=== PATIENT | male | born 1940 | race Caucasian/White ===

== ENCOUNTER → 2017-01-19 | Outpatient (CLI) | payer MEDICARE ==
[2017-01-19 11:44] LABS: Blood Urea Nitrogen 17 mg/dL (9-20); Non-African American GFR(MDRD) >60 (>60 ml/min/1.73 sqM)
--- NOTE | 2017-01-21 10:57 | CT ---
EXAMINATION TYPE: CT abdomen pelvis w con DATE OF EXAM: 01/19/2017 COMPARISON: 05/11/2016 HISTORY: Patient has no complaints at time of service. Follow up study for known pancreatic CA. CT DLP: 912 mGycm CONTRAST: CT scan of the abdomen and pelvis is performed without Oral Contrast and with IV Contrast, patient in jected with 100 mL of Omnipaque 300. FINDINGS: LUNG BASES-: No visible nodule. No infiltrate. LIVER/GB: Calcified gallstone near the gallbladder neck. Multiple hepatic cysts the largest within the right hepatic lobe posterior segment measures approximately 7 cm in greatest dimension. No solid hepatic lesions identified. Biliary tree is of normal caliber. 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 Hyperdense material at the surgical site may reflect surgical clips. No definite evidence for residual or recurrent mass . SPLEEN: Splenectomy changes noted. ADRENALS: No nodule. No thickening. KIDNEYS/BLADDER: No hydronephrosis. No nephrolithiasis. No disctinct renal mass. Urinary bladder g rossly unremarkable. BOWEL: Normal appendix. Normal bowel caliber. No inflammation. Moderate sigmoid diverticulosis with out diverticulitis. GENITAL ORGANS: Prostate gland enlargement. LYMPH NODES: No greater than 1cm abdominal or pelvic lymph nodes are appreciated. AORTA: No significant abnormality. OSSEOUS STRUCTURES: Degenerative changes lumbar spine and right hip prosthesis. OTHER: No significant additional abnormality is seen. IMPRESSION: 1. 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 No definite evidence for tumor re currence. 2. Innumerable hepatic cysts. 3. Cholelithiasis.
== END | disposition home or self-care (01) ==
LOC: RADPROMAIN 10:54
PROVIDERS: ATTEND Internal Medicine Hematology & Oncology
DX: C25.2 Malignant neoplasm of tail of pancreas (principal); K76.89 Other specified diseases of liver; K80.20 Calculus of gallbladder without cholecystitis without obstruction; Z90.81 Acquired absence of spleen; Z90.411 Acquired partial absence of pancreas; Z88.8 Allergy status to other drugs, medicaments and biological substances
CPT/HCPCS: 82565; 84520; 74177; Q9967; J1642

== ENCOUNTER → 2017-02-28 | Outpatient (CLI) | payer MEDICARE ==
--- NOTE | 2017-02-28 20:45 | US ---
EXAMINATION TYPE: US thyroid st tissue head/neck DATE OF EXAM: 02/28/2017 COMPARISON: Prior thyroid ultrasound April 15, 2016. CLINICAL HISTORY: E04.1 non-toxic thyroid nodule. follow up exam GLAND SIZE: Right Lobe: 3.8 x 1.1 x 2.4 cm Overall Parenchyma: heterogenous Left Lobe: 4.3 x 1.2 x 2.5 cm Overall Parenchyma: heterogeneous Isthmus Thickness: 0.5 cm NODULES RIGHT: # of nodules measured on right: 1 1. 0.4 X 0.3 x 0.4 cm cystic nodule at the lower pole with well-defined margins. This nodule is t aller than wide and shows no intranodular vascularity. Prior size: 0.3 x 0.4 x 0.3 cm LEFT: # of nodules measured on left: 1 1. 0.7 X 0.8 x 0.7 cm cystic nodule at the mid pole with margins. This nodule is wider than tall and shows no intranodular vascularity. Prior size: 0.8 x 0.6 x 0.6 cm ISTHMUS: # of nodules measured in the isthmus: 0 Bilateral neck scanned, no evidence of lymphadenopathy. Thyroid gland remains normal in size and slightly heterogeneous appearance with small subcentimeter n odules redemonstrated bilaterally. Only a few larger nodules are marked by technologist on current st udy. IMPRESSION: Overall stable findings, multiple small nodules scattered throughout normal-sized thyroid redemonstra fernanda. No new greater than 1 cm solid or cystic nodules are seen.
== END | disposition home or self-care (01) ==
LOC: RADUSWWP 13:33
PROVIDERS: ATTEND Family Medicine
DX: E04.2 Nontoxic multinodular goiter (principal)
CPT/HCPCS: 76536

== ENCOUNTER → 2018-01-09 | Outpatient (CLI) | payer MEDICARE ==
[2018-01-09 10:51] LABS: Anion Gap 6 mmol/L; Blood Urea Nitrogen 20 mg/dL (9-20); Calcium 9.2 mg/dL (8.4-10.2); Carbon Dioxide 29 mmol/L (22-30); Chloride 105 mmol/L (98-107); Glucose 129 mg/dL (74-99); Potassium 4.2 mmol/L (3.5-5.1); Sodium 140 mmol/L (137-145)
[2018-01-09 11:20] LABS: Prostate Specific Antigen 0.44 ng/mL (0.00-4.00)
== END | disposition home or self-care (01) ==
LOC: LABWHC1 10:10
PROVIDERS: ATTEND Urology
DX: N40.0 Benign prostatic hyperplasia without lower urinary tract symptoms (principal); N20.0 Calculus of kidney
CPT/HCPCS: 36415; 80048; 84153

== ENCOUNTER → 2018-01-20 | Outpatient (CLI) | payer MEDICARE ==
--- NOTE | 2018-01-20 10:16 | CT ---
EXAMINATION TYPE: CT abdomen pelvis w con DATE OF EXAM: 01/20/2018 COMPARISON: CT abdomen pelvis January 19, 2017 and older outside study May 11, 2016. Outside PET/ CT May 19, 2016 CT HISTORY: Pancreatic cancer CT DLP: 957 mGycm, Automated Exposure Control for Dose Reduction was Utilized. CONTRAST: CT scan of the abdomen and pelvis is performed with oral water and with IV Contrast, patient injected with 100 mL of Isovue 370. Pancreas protocol. FINDINGS: LUNG BASES: Central mild left basilar linear scarring is redemonstrated. There is bibasilar dependent atelectasis currently. There is stable calcified 2 mm left basilar nodule or granuloma axial image 9 . LIVER/GB: Numerous simple appearing thin-walled cyst redemonstrated scattered throughout the liver. D ependent rim calcified gallstone is redemonstrated in gallbladder. PANCREAS: There is redemonstration of surgical changes from distal pancreatectomy with surgical clips at mid body level axial image 33 redemonstrated. There is redemonstration of fluid-filled small beba l loops occupying distal pancreatic bed. SPLEEN: Splenic resection is redemonstrated ADRENALS: Slight asymmetric thickening to left adrenal gland is stable presumed benign. KIDNEYS: No significant abnormality is seen. BOWEL: Prominent diverticulosis in the sigmoid colon is redemonstrated. Additional scattered colonic diverticula are seen. No suspicious small or large bowel dilatation is present. PROSTATE/SEMINAL VESICLES: Prostate gland is mildly enlarged bulging on bladder base, underlying BPH is felt present. Transitional zone calcifications are redemonstrated. Some adjacent right-sided pelvi c phleboliths are again seen. Bladder wall is mildly thickened presumed related to outlet obstruction from enlarged prostate gland. LYMPH NODES: No new greater than 1cm abdominal or pelvic lymph nodes are appreciated. Some scattered prominent but subcentimeter lymph nodes throughout the upper abdomen are redemonstrated. Largest padmini r stomach axial image 35 measures 8 x 6 mm without significant change from prior. OSSEOUS STRUCTURES: Metallic hardware from total right hip arthroplasty causes streak artifact limiti ng evaluation of pelvic structures. There is persistent but stable slight superior positioning relati ve to [place] acetabulum. Spine is straightened on sagittal images. There is moderate multilevel anter ior and lateral spurring. There is advanced disc space narrowing with endplate sclerosis L5-S1 level. OTHER: There is moderate to severe atherosclerotic change of ectatic abdominal aorta measuring up to 2.7 cm transversely axial image 54 series 8 redemonstrated. IMPRESSION: Postsurgical changes redemonstrated. No new mass or adenopathy is seen to suggest neoplas tic recurrence.
== END | disposition home or self-care (01) ==
LOC: RADCTMAIN 07:55
PROVIDERS: ATTEND Internal Medicine Hematology & Oncology
DX: C25.2 Malignant neoplasm of tail of pancreas (principal); Z91.048 Other nonmedicinal substance allergy status; Z88.8 Allergy status to other drugs, medicaments and biological substances; Z98.890 Other specified postprocedural states
CPT/HCPCS: 82565; 84520; 74177; 36415; Q9967

== ENCOUNTER → 2018-08-04 | Outpatient (CLI) | payer MEDICARE ==
[2018-08-04 08:18] LABS: Blood Urea Nitrogen 18 mg/dL (9-20)
--- NOTE | 2018-08-04 10:28 | CT ---
EXAMINATION TYPE: CT abdomen pelvis w con DATE OF EXAM: 08/04/2018 COMPARISON: 01/20/2018 HISTORY: Pancreatic CA follow-up exam. History of 4 hernia repairs, right hip replacement and cardiac stents. CT DLP: 553.0 mGycm Automated exposure control for dose reduction was used. TECHNIQUE: Helical acquisition of images was performed from the lung bases through the pelvis. CONTRAST: Performed with Oral Contrast and with IV Contrast, patient injected with 100 mL of Isovue 300. FINDINGS: LUNG BASES: Left basilar scarring and minimal bibasilar atelectasis are redemonstrated. LIVER/GB: There is redemonstration of multiple unchanged thin-walled hepatic cysts with the largest m easuring 7.3 cm. No new suspicious hepatic lesions are present. No intrahepatic biliary ductal dilata tion. Calcified gallstone again appears within the gallbladder neck dependently. No pericholecystic f luid or right upper quadrant fat stranding changes are seen. No common bile duct dilatation. PANCREAS: There is surgical resection of the distal pancreatic body and tail. No pancreatic ductal en largement and the remainder the pancreatic body, pancreatic neck or pancreatic head. Remainder the vi sualized pancreatic parenchyma is homogeneous in enhancement. SPLEEN: Spleen is surgically absent. Cluster loops of nondilated small bowel are prolapsed within the splenic bed. ADRENALS: No significant abnormality is seen. KIDNEYS: Kidneys enhance and excrete symmetrically. No hydronephrosis is seen. REPRODUCTIVE ORGANS: Heterogenous and slightly enlarged. URINARY BLADDER: No significant abnormality is seen. ADENOPATHY: There is a peripancreatic lymph node seen on series 3 image 20 measuring 8 mm in short a xis, unchanged from the prior. There is a 1 cm short axis right paratracheal lymph node seen on serie s 3 image 42 and series 839, retrospectively unchanged from the prior. Additional portacaval lymph no jake are within normal limits. No new suspicious peripancreatic adenopathy. OSSEOUS STRUCTURES: There is straightening of usual lumbar lordosis and multilevel degenerative disc disease with intervertebral disc space narrowing at and L5-S1. Right femoral arthroplasty is noted w ith surrounding heterotopic ossification. Multilevel right-sided hemilaminectomy defects are noted of the lower lumbar spine. BOWEL: Numerous colonic diverticula are present in addition to moderate burden fecal stasis througho ut the colon, limiting evaluation of the bowel. No dilated large or small bowel is seen. OTHER: Moderate atheromatous changes are noted of the abdominal aorta and its branches. There is infr arenal abdominal aortic ectasia measuring up to 2.7 x 2.9 cm in anterior posterior by transverse dime nsion measured on series 3 image 35, stable from the prior. IMPRESSION: STATUS POST PARTIAL RESECTION OF THE PANCREAS WITH STABLE PERIPANCREATIC PROMINENT LYMPH NODES AND UN CHANGED NUMEROUS HEPATIC CYSTS. NO NEW EVIDENCE OF METASTASIS WITHIN THE ABDOMEN OR PELVIS.
== END | disposition home or self-care (01) ==
LOC: RADCTMAIN 07:11
PROVIDERS: ATTEND Internal Medicine Hematology & Oncology
DX: K76.89 Other specified diseases of liver (principal); C25.2 Malignant neoplasm of tail of pancreas; Z88.8 Allergy status to other drugs, medicaments and biological substances
CPT/HCPCS: 82565; 84520; 74177; 36415; Q9967

== ENCOUNTER → 2019-01-08 | Outpatient (CLI) | payer MEDICARE ==
[2019-01-08 16:10] LABS: African American GFR (CKD) 84.4 (60.0-200.0); Anion Gap 8.7 mmol/L (4.00-12.00); Calcium 9.3 mg/dL (8.7-10.3); Carbon Dioxide 29.3 mmol/L (21.6-31.8); Non-African American GFR(CKD) 72.8 (60.0-200.0); Potassium 4.6 mmol/L (3.5-5.5)
== END | disposition home or self-care (01) ==
LOC: LABWHC1 09:07
PROVIDERS: ATTEND Urology
DX: N40.0 Benign prostatic hyperplasia without lower urinary tract symptoms (principal); N20.0 Calculus of kidney
CPT/HCPCS: 36415; 80048; 84153

== ENCOUNTER → 2019-02-16 | Outpatient (CLI) | payer MEDICARE ==
--- NOTE | 2019-02-17 11:20 | CT ---
EXAMINATION TYPE: CT ChestAbdPelvis w con DATE OF EXAM: 02/16/2019 COMPARISON: August 04, [address] chest dated 03/10/2016 HISTORY: neoplasm of tail of pancreas CT DLP: 628.1 mGycm CONTRAST: CT scan of the chest, abdomen and pelvis is performed with Oral Contrast and with IV Contrast, patien t injected with 100 mL of Isovue 300. [address] Chest: LUNGS: The lungs are clear and free of infiltrate or atelectasis. Ossified granuloma right upper lobe . 0.9 mm versus 8.7 mm pulmonary nodule right lower lobe image 34. Stable 4 mm pulmonary nodule left lower lobe image 3.7 meter versus 3.5 mm previously. No pleural effusion or CT evidence of interstiti al lung disease. MEDIASTINUM: Thoracic aorta is of normal caliber. The heart is not enlarged. No evidence for media stinal mass or adenopathy. HILAR STRUCTURES: No evidence for mass. No hilar adenopathy is appreciated. OTHER: No significant abnormality. CONTRAST CT ABDOMEN AND PELVIS FINDINGS: LIVER/GB: There is evidence of cholelithiasis. There is redemonstration of multiple unchanged thin-wa lled hepatic cysts with the largest measuring 7.3 cm. No new suspicious hepatic lesions are present. Biliary tree is of normal caliber. PANCREAS: There is surgical resection of the distal pancreatic body and tail. No pancreatic ductal e nlargement and the remainder the pancreatic body, pancreatic neck or pancreatic head. Remainder the v isualized pancreatic parenchyma is homogeneous in enhancement. SPLEEN: No splenic enlargement. No lesion seen. ADRENALS: No nodule. No thickening. KIDNEYS/BLADDER: No hydronephrosis. No nephrolithiasis. No disctinct renal mass. BOWEL: Normal appendix. Normal bowel caliber. No inflammation. GENITAL ORGANS: No gross abnormality. LYMPH NODES: No greater than 1cm abdominal or pelvic lymph nodes are appreciated. AORTA: No significant abnormality. OSSEOUS STRUCTURES: No significant abnormality is seen. OTHER: No significant additional abnormality is seen. IMPRESSION: 1. resection of the distal pancreatic body and tail without evidence for recurrent or residual mass. 2. Thin-walled hepatic cysts. 3. Stable pulmonary nodules. 4. Cholelithiasis.
== END | disposition home or self-care (01) ==
LOC: RADCTMAIN 10:23
PROVIDERS: ATTEND Internal Medicine Hematology & Oncology
DX: Z08 Encounter for follow-up examination after completed treatment for malignant neoplasm (principal); R91.8 Other nonspecific abnormal finding of lung field; K76.89 Other specified diseases of liver; K80.20 Calculus of gallbladder without cholecystitis without obstruction; Z88.8 Allergy status to other drugs, medicaments and biological substances
CPT/HCPCS: 82565; 84520; 71260; 74177; 36415; Q9967 ×2

== ENCOUNTER 2019-04-03 11:39 | Inpatient (IN) | payer MEDICARE ==
[2019-04-03] MEDS ORDERED: SODIUM CHLORIDE 0.9% 1,000 ML IV STA (12:08)
--- NOTE | 2019-04-03 12:17 | ED ---
Abdominal Pain HPI - General Chief Complaint: Abdominal Pain Stated Complaint: Nausea, vomiting Time Seen by Provider: 04/03/19 11:55 Source: patient, family, EMS, RN notes reviewed Mode of arrival: EMS Limitations: no limitations - History of Present Illness Initial Comments: This a 79-year-old male presents emergency Department chief complaint of abdo luis pain. Patient states that started approximately an hour or so after eating peanut butter with a bagel Patient states he had epigastric right quadrant severe pain. Patient states that it radiates to his back. Patient states he had several episodes of vomiting but states that his nausea is im proved after Zofran given by EMS patient states his pain is resolved. Patient denies any current chest pain or shortness of breath. He states when he was vomiting did have some symptoms. Patient does admit that he's had prior ankle headache surgery secondary pain carry cancer at [place]. Patient denies any current dysuria, hematuria, diarrhea constipation - Related Data Allergies Allergy/AdvReac Type Severity Reaction Status Date / Time No Known Allergies Allergy Verified 04/03/19 11:48 Review of Systems ROS Statement: Those systems with pertinent positive or pertinent negative responses have been documented in the HPI. ROS Other: All systems not noted in ROS Statement are negative. Past Medical History Past Medical History: Atrial Fibrillation, Cancer, Chest Pain / Angina, Hyperlipidemia, Hypertension Additional Past Medical History / Comment(s): pancreatic, History of Any Multi-Drug Resistant Organisms: None Reported Past Surgical History: Back Surgery, Hernia Repair, Orthopedic Surgery Additional Past Surgical History / Comment(s): pancrearic resection, right hip Past Psychological History: No Psychological Hx Reported Smoking Status: Never smoker Past Alcohol Use History: Occasional Past Drug Use History: None Reported General Exam Limitations: no limitations General appearance: alert, in no apparent distress Head exam: Present: atraumatic, normocephalic, normal inspection Eye exam: Present: normal appearance, PERRL, EOMI. Absent: scleral icterus, conjunctival injection, periorbital swelling ENT exam: Present: normal exam, normal oropharynx, mucous membranes moist Neck exam: Present: normal inspection, full ROM. Absent: tenderness, meningi smus, lymphadenopathy Respiratory exam: Present: normal lung sounds bilaterally. Absent: respiratory distress, wheezes, rales, rhonchi, stridor Cardiovascular Exam: Present: regular rate, normal rhythm, normal heart sounds. Absent: systolic murmur, diastolic murmur, rubs, gallop, clicks GI/Abdominal exam: Present: soft, tenderness (Mild right upper quadrant, epigastric), normal bowel sounds. Absent: distended, guarding, rebound, rigid Back exam: Absent: CVA tenderness (R), CVA tenderness (L) Neurological exam: Present: alert, oriented X3 Skin exam: Present: warm, dry, intact, normal color. Absent: rash Course Vital Signs 04/03/19 11:42 Temperature 97.2 F L Pulse Rate 69 Respiratory 16 Rate Blood Pressure 142/125 O2 Sat by Pulse 98 Oximetry Medical Decision Making - Medical Decision Making Patient also shows dilated common bile duct concerning for developing acute cholecystitis, cholelithiasis. Patient's labs are unremarkable case discussed with Dr. Quezada on-call for Dr. Orta patient be admitted patient will be kept nothing by mouth and we placed on pain medications - Lab Data Result diagrams: 04/03/19 12:39 04/03/19 12:39 Lab Results 04/03/19 04/03/19 04/03/19 Range/Units 12:39 12:39 12:39 WBC 13.9 H (3.8-10.6) k/uL RBC 3.94 L (4.30-5.90) m/uL Hgb 14.0 (13.0-17.5) gm/dL Hct 41.0 (39.0-53.0) % MCV 104.1 H (80.0-100.0) fL MCH 35.6 H (25.0-35.0) pg MCHC 34.2 (31.0-37.0) g/dL RDW 12.1 (11.5-15.5) % Plt Count 198 (150-450) k/uL Neutrophils % 82 % Lymphocytes % 8 % Monocytes % 7 % Eosinophils % 1 % Basophils % 0 % Neutrophils # 11.5 H (1.3-7.7) k/uL Lymphocytes # 1.2 (1.0-4.8) k/uL Monocytes # 1.0 (0-1.0) k/uL Eosinophils # 0.1 (0-0.7) k/uL Basophils # 0.0 (0-0.2) k/uL Macrocytosis Slight Sodium 138 (137-145) mmol/L Potassium 4.5 (3.5-5.1) mmol/L Chloride 104 (98-107) mmol/L Carbon Dioxide 22 (22-30) mmol/L Anion Gap 12 mmol/L BUN 18 (9-20) mg/dL Creatinine 0.83 (0.66-1.25) mg/dL Est GFR (CKD-EPI)AfAm >90 (>60 ml/min/1.73 sqM) Est GFR (CKD-EPI)NonAf 85 (>60 ml/min/1.73 sqM) Glucose 126 H (74-99) mg/dL Plasma Lactic Acid Donnell 1.9 (0.7-2.0) mmol/L Calcium 9.9 (8.4-10.2) mg/dL Total Bilirubin 1.3 (0.2-1.3) mg/dL AST 30 (17-59) U/L ALT 23 (21-72) U/L Alkaline Phosphatase 73 (38-126) U/L Troponin I (0.000-0.034) ng/mL Total Protein 8.0 (6.3-8.2) g/dL Albumin 4.6 (3.5-5.0) g/dL Amylase 71 (30-110) U/L Lipase 141 (23-300) U/L Urine Color Urine Appearance (Clear) Urine pH (5.0-8.0) Ur Specific [place] (1.001-1.035) Urine Protein (Negative) Urine Glucose (UA) (Negative) Urine Ketones (Negative) Urine Blood (Negative) Urine Nitrite (Negative) Urine Bilirubin (Negative) Urine Urobilinogen (<2.0) mg/dL Ur Leukocyte Esterase (Negative) Urine WBC (0-5) /hpf Calcium Oxalate Crystal (None) /hpf Amorphous Sediment (None) /hpf Hyaline Casts (0-2) /lpf Urine Mucus (None) /hpf 04/03/19 04/03/19 Range/Units 12:39 14:40 WBC (3.8-10.6) k/uL RBC (4.30-5.90) m/uL Hgb (13.0-17.5) gm/dL Hct (39.0-53.0) % MCV (80.0-100.0) fL MCH (25.0-35.0) pg MCHC (31.0-37.0) g/dL RDW (11.5-15.5) % Plt Count (150-450) k/uL Neutrophils % % Lymphocytes % % Monocytes % % Eosinophils % % Basophils % % Neutrophils # (1.3-7.7) k/uL Lymphocytes # (1.0-4.8) k/uL Monocytes # (0-1.0) k/uL Eosinophils # (0-0.7) k/uL Basophils # (0-0.2) k/uL Macrocytosis Sodium (137-145) mmol/L Potassium (3.5-5.1) mmol/L Chloride (98-107) mmol/L Carbon Dioxide (22-30) mmol/L Anion Gap mmol/L BUN (9-20) mg/dL Creatinine (0.66-1.25) mg/dL Est GFR (CKD-EPI)AfAm (>60 ml/min/1.73 sqM) Est GFR (CKD-EPI)NonAf (>60 ml/min/1.73 sqM) Glucose (74-99) mg/dL Plasma Lactic Acid Donnell (0.7-2.0) mmol/L Calcium (8.4-10.2) mg/dL Total Bilirubin (0.2-1.3) mg/dL AST (17-59) U/L ALT (21-72) U/L Alkaline Phosphatase (38-126) U/L Troponin I <0.012 (0.000-0.034) ng/mL Total Protein (6.3-8.2) g/dL Albumin (3.5-5.0) g/dL Amylase (30-110) U/L Lipase (23-300) U/L Urine Color Yellow Urine Appearance Clear (Clear) Urine pH 5.5 (5.0-8.0) Ur Specific [place] 1.017 (1.001-1.035) Urine Protein Trace H (Negative) Urine Glucose (UA) Negative (Negative) Urine Ketones Negative (Negative) Urine Blood Small H (Negative) Urine Nitrite Negative (Negative) Urine Bilirubin Negative (Negative) Urine Urobilinogen <2.0 (<2.0) mg/dL Ur Leukocyte Esterase Negative (Negative) Urine WBC 4 (0-5) /hpf Calcium Oxalate Crystal Many H (None) /hpf Amorphous Sediment Rare H (None) /hpf Hyaline Casts 4 H (0-2) /lpf Urine Mucus Occasional H (None) /hpf Disposition Clinical Impression: Cholelithiasis Disposition: ADMITTED IP TO THIS HOSP Condition: Stable Referrals: Grabiel Sullivan MD [Primary Care Provider] - 1-2 days
[2019-04-03 13:04] LABS: Basophils % (A) 0 %; Eosinophils # (A) 0.1 k/uL (0-0.7); Eosinophils % (A) 1 %; Lymphocytes # (A) 1.2 k/uL (1.0-4.8); Lymphocytes % (A) 8 %; MCH 35.6 pg (25.0-35.0); MCHC 34.2 g/dL (31.0-37.0); MCV 104.1 fL (80.0-100.0); Macrocytosis Slight; Mean Platelet Volume 6.3; Monocytes % (A) 7 %; Neutrophils # (A) 11.5 k/uL (1.3-7.7); Neutrophils % (A) 82 %; Platelet Count 198 k/uL (150-450); RBC 3.94 m/uL (4.30-5.90); RDW 12.1 % (11.5-15.5); WBC 13.9 k/uL (3.8-10.6)
[2019-04-03 13:10] LABS: ALT 23 U/L (21-72); AST 30 U/L (17-59); African American GFR (CKD) >90 (>60 ml/min/1.73 sqM); Albumin 4.6 g/dL (3.5-5.0); Alkaline Phosphatase 73 U/L (38-126); Amylase 71 U/L (30-110); Anion Gap 12 mmol/L; Blood Urea Nitrogen 18 mg/dL (9-20); Calcium 9.9 mg/dL (8.4-10.2); Carbon Dioxide 22 mmol/L (22-30); Chloride 104 mmol/L (98-107); Glucose 126 mg/dL (74-99); Potassium 4.5 mmol/L (3.5-5.1); Sodium 138 mmol/L (137-145); Total Bilirubin 1.3 mg/dL (0.2-1.3)
--- NOTE | 2019-04-03 13:26 | US ---
EXAMINATION TYPE: US gallbladder DATE OF EXAM: 04/03/2019 COMPARISON: NONE CLINICAL HISTORY: pain. RUQ pain, nausea, vomiting since this morning. Hx Pancreatic CA. Partial panc reectomy. EXAM MEASUREMENTS: Liver Length: 17.9 cm Gallbladder Wall: 0.2 cm CBD: 0.9 cm Right Kidney: 11.7 x 5.1 x 4.6 cm Pancreas: Partially removed, Obscured by bowel gas Liver: with multiple known hepatic cysts largest =9.2 x 8.3 x 7.3 cm Gallbladder: distended with single shadowing stone. Evidence for sonographic Ortiz's sign: No CBD: large in size. Right Kidney: wnl IMPRESSION: 1. There is cholelithiasis and common bile duct dilatation. Common bile duct enlargement is new from the prior CT of 02/16/2019 and therefore early acute cholecystitis should be considered. This is not s onographically confirmed as there is no pericholecystic fluid and no gallbladder wall thickening as w ell as a negative sonographic Ortiz's sign. HIDA scan could be considered despite the known cholelit hiasis if clinical exam is indeterminant. 2. Redemonstration of multiple known hepatic cystic lesions, the largest measuring 9.2 cm.
[2019-04-03] MEDS ORDERED: SODIUM CHLORIDE 0.9% 1,000 ML IV ONE (14:19)
[2019-04-03] MEDS ORDERED: HYDROmorphone 0.5 MG/0.5 ML SYRINGE IVP STA (14:19)
[2019-04-03] MEDS: ONDANSETRON 4 MG/2 ML VIAL IVP STA (14:36)
[2019-04-03 14:56] LABS: Amorphous Sediment,Urine Rare /hpf; Appearance,Urine Clear (Clear); Bilirubin,Urine Negative (Negative); Blood,Urine Small (Negative); Calcium Oxalate Crystals,Urine Many /hpf; Color,Urine Yellow; Glucose,Urine (UA) Negative (Negative); Hyaline Casts,Urine 4 /lpf (0-2); Ketones,Urine Negative (Negative); Leukocyte Esterase,Urine Negative (Negative); Mucus,Urine Occasional /hpf; Nitrite,Urine Negative (Negative); PH, Urine 5.5 (5.0-8.0); Protein,Urine Trace (Negative); Specific Gravity,Urine 1.017 (1.001-1.035); Urobilinogen,Urine <2.0 mg/dL (<2.0)
[2019-04-03] MEDS ORDERED: NALOXONE 0.4 MG/ML 1 ML VIAL IV PRN (15:06)
[2019-04-03] MEDS ORDERED: PIPERACILLIN-TAZOBACTAM 3.375 GM in SODIUM CHLORIDE 0.9% 100 ML IVPB STA (15:42)
[2019-04-03] MEDS ORDERED: ACETAMINOPHEN TAB 325 MG TAB PO STA (15:42)
[2019-04-03] MEDS ORDERED: LABETALOL 5 MG/ML VIAL MDV IVP STA (15:42)
[2019-04-03 20:40] LABS: Glucose,Whole Blood 140 mg/dL (75-99)
[2019-04-03] MEDS ORDERED: cloNIDine 0.1 MG/24HR PATCH TRANSDERM SCH (21:00)
[2019-04-03] MEDS: ASPIRIN 81 MG PO SCH (21:18)
[2019-04-03] MEDS: TAMSULOSIN 0.4 MG CAP.ER.24H PO SCH (21:18)
[2019-04-03] MEDS: metFORMIN 500 MG TAB PO SCH (21:18)
[2019-04-03] MEDS: ONDANSETRON 4 MG/2 ML VIAL IVP PRN (22:35)
[2019-04-03] MEDS: METOPROLOL SUCCINATE (ER) 50 MG TAB.ER.24H PO SCH ×2 (23:43→23:45)
[2019-04-04] MEDS: ACETAMINOPHEN IV (For NPO) 1,000 MG in EMPTY BAG 1 BAG IVPB PRN ×2 (00:20→11:25)
[2019-04-04 06:08] LABS: Glucose,Whole Blood 136 mg/dL (75-99)
[2019-04-04] MEDS: metFORMIN 500 MG TAB PO SCH ×2 (06:33→16:58)
[2019-04-04] MEDS: PANTOPRAZOLE 40 MG TABLET PO SCH (06:33)
[2019-04-04] MEDS ORDERED: METOPROLOL SUCCINATE (ER) 25 MG TAB.ER.24H PO SCH (09:00)
[2019-04-04] MEDS ORDERED: CLOPIDOGREL 75 MG TAB PO SCH (09:00)
[2019-04-04] MEDS: ATORVASTATIN 10 MG TAB PO SCH (09:29)
[2019-04-04] MEDS: LOSARTAN 50 MG TAB PO SCH (09:29)
[2019-04-04] MEDS: FINASTERIDE 5 MG TAB PO SCH (09:29)
--- NOTE | 2019-04-04 09:54 | P.GSHP ---
<Shani Joseph A - Last Filed: 04/04/19 09:46> History of Present Illness H&P Date: 04/04/19 Chief Complaint: abdominal pain CHIEF COMPLAINT: Abdominal pain HISTORY OF PRESENT ILLNESS: 79-year-old male who presents to emergency room with a chief complaint of abdominal pain. Patient states he woke up yesterday morning and his usual state of health and was feeling well. He reports eating a bagel with peanut butter on it. Shortly after he began having severe epigastric and right upper quadrant abdominal pain. He also reports he had nausea and mul tiple episodes of bilious emesis. Denies fever or chills. Patient states he is feeling better this morning. His pain is tolerable. He denies any further episodes of vomiting. PAST MEDICAL HISTORY: See list. PAST SURGICAL HISTORY: See list. SOCIAL HISTORY: No illicit drug use. REVIEW OF SYSTEMS: CONSTITUTIONAL: Denies fever or chills. HEENT: Denies blurred vision, vision changes, or eye pain. Denies hemoptysis CARDIOVASCULAR: Denies chest pain or pressure. RESPIRATORY: No shortness of breath. GASTROINTESTINAL: Refer to HPI for pertinent findings HEMATOLOGIC: Denies bleeding disorders. GENITOURINARY: Denies any blood in urine. SKIN: Denies pruitis. Denies rash. PHYSICAL EXAM: VITAL SIGNS: Reviewed. GENERAL: Well-developed in no acute distress. HEENT: No sclera icterus. Extraocular movements grossly intact. Moist buccal mucosa. Head is atraumatic, normocephalic. ABDOMEN: Soft. Nondistended. Nontender. Positive bowel sounds. NEUROLOGIC: Alert and oriented. Cranial nerves II through XII grossly intact. LABORATORY DATA: WBC 13.9. Hemoglobin 14.0. Platelet count 198. Potassium 4.5. BUN 18. Creatinine 0.83. Bilirubin 1.3. AST 30. ALT 23. IMAGING: Ultrasound gallbladder: Cholelithiasis and common bile duct dilation. Common bile duct enlargement is new from prior CT of 02/16/2019. Early acute cholecystitis should be considered. No pericholecystic fluid or gallbladder wall thickening. ASSESSMENT: 1. Cholelithiasis, suspected acute cholecystitis 2. Sepsis, present on admission, patient presented with fever, tachycardia, and leukocytosis 2. History of pancreatic cancer, approximately 3 years ago, with surgical resection and chemotherapy 3. Coronary artery disease with previous stent placement PLAN: 1. Nothing by mouth. Continue IV fluids 2. Continue Zosyn IV every 8 hours. Monitor WBC 3. Continue to hold Plavix. Dr. Blas aware patient received plavix yesterday 4. Patient to undergo laparoscopic cholecystectomy today with Dr. Blas Nurse practitioner note has been reviewed by physician. Signing provider agrees with the documented findings, assessment, and plan of care. Past Medical History Past Medical History: Atrial Fibrillation, Cancer, Chest Pain / Angina, Hyperlipidemia, Hypertension, Myocardial Infarction ([place]) Additional Past Medical History / Comment(s): pancreatic cancer Last Myocardial Infarction Date:: 2000 History of Any Multi-Drug Resistant Organisms: None Reported Past Surgical History: Back Surgery, Heart Catheterization, Heart Catheterization With Stent, Hernia Repair, Orthopedic Surgery Additional Past Surgical History / Comment(s): pancrearic resection, right hip, states they have had 5 cardiac stents Date of Last Stent Placement:: 09/14 Past Psychological History: No Psychological Hx Reported Smoking Status: Never smoker Past Alcohol Use History: Occasional Past Drug Use History: None Reported Medications and Allergies Home Medications Medication Instructions Recorded Confirmed Type Aspirin EC [Ecotrin Low Dose] 81 mg PO HS 04/03/19 04/03/19 History Clopidogrel [Plavix] 75 mg PO DAILY 04/03/19 04/03/19 History Dutasteride 0.5 mg PO DAILY 04/03/19 04/03/19 History Losartan Potassium 50 mg PO DAILY 04/03/19 04/03/19 History Lovastatin [Mevacor] 20 mg PO DAILY 04/03/19 04/03/19 History Metoprolol Succinate [Toprol XL] 25 mg PO DAILY 04/03/19 04/03/19 History Omeprazole 40 mg PO DAILY 04/03/19 04/03/19 History Tamsulosin [Flomax] 0.4 mg PO HS 04/03/19 04/03/19 History metFORMIN HCL [Glucophage] 500 mg PO BID 04/03/19 04/03/19 History Allergies Allergy/AdvReac Type Severity Reaction Status Date / Time No Known Allergies Allergy Verified 04/03/19 16:31 Surgical - Exam Vital Signs Temp Pulse Resp BP Pulse Ox 97.2 F L 69 16 142/125 98 04/03/19 11:42 04/03/19 11:42 04/03/19 11:42 04/03/19 11:42 04/03/19 11:42 Results - Labs 04/03/19 12:39 04/03/19 12:39 Abnormal Lab Results - Last 24 Hours (Table) 04/03/19 04/03/19 04/03/19 Range/Units 12:39 12:39 14:40 WBC 13.9 H (3.8-10.6) k/uL RBC 3.94 L (4.30-5.90) m/uL MCV 104.1 H (80.0-100.0) fL MCH 35.6 H (25.0-35.0) pg Neutrophils # 11.5 H (1.3-7.7) k/uL Glucose 126 H (74-99) mg/dL POC Glucose (mg/dL) (75-99) mg/dL Urine Protein Trace H (Negative) Urine Blood Small H (Negative) Calcium Oxalate Crystal Many H (None) /hpf Amorphous Sediment Rare H (None) /hpf Hyaline Casts 4 H (0-2) /lpf Urine Mucus Occasional H (None) /hpf 04/03/19 04/04/19 Range/Units 20:38 06:07 WBC (3.8-10.6) k/uL RBC (4.30-5.90) m/uL MCV (80.0-100.0) fL MCH (25.0-35.0) pg Neutrophils # (1.3-7.7) k/uL Glucose (74-99) mg/dL POC Glucose (mg/dL) 140 H 136 H (75-99) mg/dL Urine Protein (Negative) Urine Blood (Negative) Calcium Oxalate Crystal (None) /hpf Amorphous Sediment (None) /hpf Hyaline Casts (0-2) /lpf Urine Mucus (None) /hpf Diabetes panel 04/03/19 Range/Units 12:39 Sodium 138 (137-145) mmol/L Potassium 4.5 (3.5-5.1) mmol/L Chloride 104 (98-107) mmol/L Carbon Dioxide 22 (22-30) mmol/L BUN 18 (9-20) mg/dL Creatinine 0.83 (0.66-1.25) mg/dL Glucose 126 H (74-99) mg/dL Calcium 9.9 (8.4-10.2) mg/dL AST 30 (17-59) U/L ALT 23 (21-72) U/L Alkaline Phosphatase 73 (38-126) U/L Total Protein 8.0 (6.3-8.2) g/dL Albumin 4.6 (3.5-5.0) g/dL Calcium panel 04/03/19 Range/Units 12:39 Calcium 9.9 (8.4-10.2) mg/dL Albumin 4.6 (3.5-5.0) g/dL Pituitary panel 04/03/19 Range/Units 12:39 Sodium 138 (137-145) mmol/L Potassium 4.5 (3.5-5.1) mmol/L Chloride 104 (98-107) mmol/L Carbon Dioxide 22 (22-30) mmol/L BUN 18 (9-20) mg/dL Creatinine 0.83 (0.66-1.25) mg/dL Glucose 126 H (74-99) mg/dL Calcium 9.9 (8.4-10.2) mg/dL Adrenal panel 04/03/19 Range/Units 12:39 Sodium 138 (137-145) mmol/L Potassium 4.5 (3.5-5.1) mmol/L Chloride 104 (98-107) mmol/L Carbon Dioxide 22 (22-30) mmol/L BUN 18 (9-20) mg/dL Creatinine 0.83 (0.66-1.25) mg/dL Glucose 126 H (74-99) mg/dL Calcium 9.9 (8.4-10.2) mg/dL Total Bilirubin 1.3 (0.2-1.3) mg/dL AST 30 (17-59) U/L ALT 23 (21-72) U/L Alkaline Phosphatase 73 (38-126) U/L Total Protein 8.0 (6.3-8.2) g/dL Albumin 4.6 (3.5-5.0) g/dL <Berry Blas - Last Filed: 04/04/19 14:03> Surgical - Exam Vital Signs Temp Pulse Resp BP Pulse Ox 97.2 F L 69 16 142/125 98 04/03/19 11:42 04/03/19 11:42 04/03/19 11:42 04/03/19 11:42 04/03/19 11:42 Results - Labs 04/03/19 12:39 04/03/19 12:39 Abnormal Lab Results - Last 24 Hours (Table) 04/03/19 04/03/19 04/04/19 Range/Units 14:40 20:38 06:07 POC Glucose (mg/dL) 140 H 136 H (75-99) mg/dL Urine Protein Trace H (Negative) Urine Blood Small H (Negative) Calcium Oxalate Crystal Many H (None) /hpf Amorphous Sediment Rare H (None) /hpf Hyaline Casts 4 H (0-2) /lpf Urine Mucus Occasional H (None) /hpf 04/04/19 Range/Units 11:51 POC Glucose (mg/dL) 130 H (75-99) mg/dL Urine Protein (Negative) Urine Blood (Negative) Calcium Oxalate Crystal (None) /hpf Amorphous Sediment (None) /hpf Hyaline Casts (0-2) /lpf Urine Mucus (None) /hpf Assessment and Plan Plan: Symptomatically cholelithiasis. Patient will undergo laparoscopic cholecystectomy. I discussed the risk of possible open cholecystectomy with the patient due to adhesions from his previous surgery.
[2019-04-04] MEDS: PIPERACILLIN-TAZOBACTAM 3.375 GM in SODIUM CHLORIDE 0.9% 100 ML IVPB SCH ×2 (11:13→17:24)
[2019-04-04] MEDS: SODIUM CHLORIDE 0.9% 1,000 ML IV SCH ×2 (11:14→21:10)
[2019-04-04 11:53] LABS: Glucose,Whole Blood 130 mg/dL (75-99)
[2019-04-04] MEDS ORDERED: IV FLUID CONTINUATION 200 ML IV ONE (13:26)
[2019-04-04] MEDS ORDERED: HEPARIN SODIUM,PORCINE 5,000 UNIT/ML 1 ML VIAL SQ ONE (14:05)
[2019-04-04] MEDS: ONDANSETRON 4 MG/2 ML VIAL IVP STA (14:06)
[2019-04-04] MEDS ORDERED: fentaNYL (PF) 50 MCG/ML 2 ML AMP ONE (14:15)
[2019-04-04] MEDS ORDERED: ROCURONIUM BROMIDE 10 MG/ML 10 ML VIAL IV ONE (14:15)
[2019-04-04] MEDS ORDERED: MIDAZOLAM 2 MG/2 ML VIAL ONE (14:15)
[2019-04-04] MEDS ORDERED: WATER FOR INJECTION, STERILE 10 ML VIAL IV ONE (14:15)
[2019-04-04] MEDS ORDERED: GLYCOPYRROLATE 0.2 MG/ML 2 ML VIAL ONE (14:15)
[2019-04-04] MEDS ORDERED: LIDOCAINE 1% INJ 10MG/ML (20 ML MDV) ONE (14:15)
[2019-04-04] MEDS ORDERED: HYDROmorphone (PF) 1 MG/ML ONE (14:15)
[2019-04-04] MEDS ORDERED: NEOSTIGMINE 1 MG/ML 10 ML VIAL ONE (14:15)
[2019-04-04] MEDS ORDERED: ESMOLOL 100 MG/10 ML VIAL ONE (14:15)
[2019-04-04] MEDS ORDERED: ePHEDrine SULFATE/0.9% NACL/PF 50 MG/5 ML SYRINGE IV ONE (14:15)
[2019-04-04] MEDS ORDERED: PHENYLEPHRINE-0.9% NACL SYG 1 MG/10 ML SYRINGE ONE (14:15)
[2019-04-04] MEDS ORDERED: PROPOFOL 10 MG/ML 20 ML VIAL IV ONE (14:15)
[2019-04-04] MEDS ORDERED: SUCCINYLCHOLINE CHLORIDE 100 MG/5 ML SYR IV ONE (14:15)
[2019-04-04] MEDS ORDERED: LIDOCAINE 1%-EPI 1:100,000 20 ML VIAL SQ ONE (14:21)
[2019-04-04] MEDS ORDERED: LACTATED RINGERS 1,000 ML IV ONE ×2 (14:30→15:08)
[2019-04-04] MEDS: LACTATED RINGERS 1,000 ML IV ONE ×2 (15:08→15:11)
--- NOTE | 2019-04-04 15:21 | P.OP ---
Date of Procedure: 04/04/19 Preoperative Diagnosis: Cholecystitis Postoperative Diagnosis: Cholelithiasis Cholecystitis Procedure(s) Performed: Laparoscopic cholecystectomy Anesthesia: FARHAT Surgeon: Berry Blas Estimated Blood Loss (ml): 10 Pathology: other (Gallbladder) Condition: stable Disposition: PACU Description of Procedure: The patient was placed on the operating table. The patient received a general endotracheal tube anesthesia. The patients abdomen was prepped and draped in the usual sterile fashion. Through an infraumbilical stab incision, the fascia of the anterior abdominal wall was grasped with a pair of Kochers and then the Veress needle was placed in the peritoneal cavity. Position of the Veress needle was confirmed with positive drop test. The abdomen was then insufflated. After adequate insufflation, the 10 mm trocar was placed in the peritoneal cavity. Following this the laparoscope was placed in the peritoneal cavity. The patient was placed in the head-up, right side up position and then a 5 mm trocar was placed in the right lateral and right subcostal position under direct visualization. A 8 mm trocar was placed in the epigastric position. The gallbladder was grasped in the fundus and infundibulum. Traction on the gallbladder was placed in the lateral and the cephalad positions. The triangle of Calot was visualized.. The cystic duct was bluntly dissected until the union of the cystic duct and common bile duct was seen. A critical view of safety was achieved. The cystic duct was then divided and sealed with the Harmonic scissors. A PDS Endoloop was then placed throughout the cystic duct stump. The cystic artery divided and sealed with the Harmonic scissors. The gallbladder was then removed from the liver bed using Harmonic scissors. The gallbladder was then extracted through the epigastric port site. Operative field was checked for any bleeding spots and Harmonic scissors was used to coagulate the liver bed. The abdomen was irrigated. The trocars were removed. The skin was closed using interrupted 3-0 Vicryl suture. Dermabond dressing were applied. The patient tolerated the procedure well. The patient had an oral gastric tube placed at the time of induction. The prostate a cc of bilious fluid was aspirated. The orogastric tube was converted to a nasogastric tube after the procedure.
[2019-04-04] MEDS: HYDROmorphone 0.5 MG/0.5 ML SYRINGE IVP ONE ×2 (15:42→15:53)
[2019-04-04 15:58] LABS: Glucose,Whole Blood 119 mg/dL (75-99)
[2019-04-04] MEDS: METOPROLOL TARTRATE 50 MG TAB PO SCH ×2 (16:25→21:09)
--- NOTE | 2019-04-04 21:03 | P.CONS ---
History of Present Illness - Reason for Consult Consult date: 04/04/19 Medical management Requesting physician: Berry Blas - Chief Complaint Abdominal pain - History of Present Illness Consultation: This is a pleasant 79-year-old patient of Dr. Sullivan. Chronic stable medical conditions include coronary artery disease with 5 stents. Followed by cloud operations engineer out of the area, pancreatic cancer treated for surgery, hypertension, hyperlipidemia, and gender. Yesterday morning patient started increasing right upper quadrant pain pain became worse. Sharp localized to the upper abdomen. Associated nausea vomiting. Patient started having episodes of fever and sweating. Decided to present to ER. Patient started and IV antibiotics. Soft bruit patient underwent a laparoscopic cholecystectomy with Dr. Blas. Postprocedure patient's pain is well controlled. No further fever chills. Laying in bed. Review of systems: GEN.: Fever or chills EYES: None HEENT: None NECK: None RESPIRATORY: None CARDIOVASCULAR: None GASTROINTESTINAL: [Has above GENITOURINARY: None MUSCULOSKELETAL: None LYMPHATICS: None HEMATOLOGICAL: None PSYCHIATRY: None NEUROLOGICAL: None Past medical history to include: In general, hyperlipidemia, hypertension, prostate cancer treated with surgery, coronary artery with stent Social history: Doesn't smoke. 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 EYES: Pupils equal. Conjunctiva normal. HEENT: External appearance of nose and ears normal, oral cavity grossly normal. NECK: JVD not raised; masses not palpable. HEART: First and second heart sounds are normal; no edema. LUNGS: Respiratory rate normal; clear to auscultation. ABDOMEN: Soft, upper abdominal tenderness, no guarding or rigidity, liver spleen not palpable, no masses palpable. PSYCH: Alert and oriented x3; mood and affect normal. NEUROLOGICAL: Cranial nerves grossly intact; no facial asymmetry, power and sensation grossly intact. LYMPHATICS: No lymph nodes palpable in the axilla and neck INVESTIGATIONS, reviewed in the clinical context: White count 13.9 hemoglobin 14 pressure 4.5 creatinine 0.83 Total bilirubin 1.3 AST/ALT normal amylase lipase is normal Abdominal ultrasound-cholelithiasis, common bile duct bilateral crepitation Multiple hepatic cysts Assessment: -Choledocholithiasis with acute cholecystitis causing sepsis, POA -Status post laparoscopic cholecystectomy -Multiple hepatic cysts -Hyperlipidemia -Hypertension -Coronary artery disease with stent -BPH Plan: Patient is on IV Zosyn. Home medications were resumed. Diet to be advanced per surgery. Care was discussed with the patient. Questions were answered Thank you Dr. Blas Past Medical History Past Medical History: Atrial Fibrillation, Cancer, Chest Pain / Angina, Hyperlipidemia, Hypertension, Myocardial Infarction ([place]) Additional Past Medical History / Comment(s): pancreatic cancer Last Myocardial Infarction Date:: 2000 History of Any Multi-Drug Resistant Organisms: None Reported Past Surgical History: Back Surgery, Heart Catheterization, Heart Catheterization With Stent, Hernia Repair, Orthopedic Surgery Additional Past Surgical History / Comment(s): pancrearic resection, right hip, states they have had 5 cardiac stents Date of Last Stent Placement:: 09/14 Past Psychological History: No Psychological Hx Reported Smoking Status: Never smoker Past Alcohol Use History: Occasional Past Drug Use History: None Reported Medications and Allergies Home Medications Medication Instructions Recorded Confirmed Type Aspirin EC [Ecotrin Low Dose] 81 mg PO HS 04/03/19 04/03/19 History Clopidogrel [Plavix] 75 mg PO DAILY 04/03/19 04/03/19 History Dutasteride 0.5 mg PO DAILY 04/03/19 04/03/19 History Losartan Potassium 50 mg PO DAILY 04/03/19 04/03/19 History Lovastatin [Mevacor] 20 mg PO DAILY 04/03/19 04/03/19 History Metoprolol Succinate [Toprol XL] 25 mg PO DAILY 04/03/19 04/03/19 History Omeprazole 40 mg PO DAILY 04/03/19 04/03/19 History Tamsulosin [Flomax] 0.4 mg PO HS 04/03/19 04/03/19 History metFORMIN HCL [Glucophage] 500 mg PO BID 04/03/19 04/03/19 History Allergies Allergy/AdvReac Type Severity Reaction Status Date / Time No Known Allergies Allergy Verified 04/03/19 16:31 Physical Exam Vitals: Vital Signs Temp Pulse Pulse Resp BP BP Pulse Ox 04/04/19 04:00 98 F 67 16 157/82 98 04/04/19 00:00 100.4 F H 81 16 190/85 95 04/03/19 20:00 100.1 F H 105 H 18 171/101 93 L 04/03/19 19:00 105 H 176/91 93 L 04/03/19 17:53 160/99 04/03/19 17:24 101 H 18 148/100 04/03/19 16:42 101 H 18 196/121 04/03/19 15:37 100.7 F H 103 H 18 190/106 04/03/19 11:42 97.2 F L 69 16 142/125 98 Intake and Output 04/03/19 04/04/19 04/04/19 22:59 06:59 14:59 Intake Total 240 Balance 240 Intake: Oral 240 Other: Voiding Method Toilet Toilet # Voids 1 Weight 67.6 kg Results CBC & Chem 7: 04/03/19 12:39 04/03/19 12:39 Labs: Abnormal Lab Results - Last 24 Hours (Table) 04/03/19 04/03/19 04/03/19 Range/Units 12:39 12:39 14:40 WBC 13.9 H (3.8-10.6) k/uL RBC 3.94 L (4.30-5.90) m/uL MCV 104.1 H (80.0-100.0) fL MCH 35.6 H (25.0-35.0) pg Neutrophils # 11.5 H (1.3-7.7) k/uL Glucose 126 H (74-99) mg/dL POC Glucose (mg/dL) (75-99) mg/dL Urine Protein Trace H (Negative) Urine Blood Small H (Negative) Calcium Oxalate Crystal Many H (None) /hpf Amorphous Sediment Rare H (None) /hpf Hyaline Casts 4 H (0-2) /lpf Urine Mucus Occasional H (None) /hpf 04/03/19 04/04/19 Range/Units 20:38 06:07 WBC (3.8-10.6) k/uL RBC (4.30-5.90) m/uL MCV (80.0-100.0) fL MCH (25.0-35.0) pg Neutrophils # (1.3-7.7) k/uL Glucose (74-99) mg/dL POC Glucose (mg/dL) 140 H 136 H (75-99) mg/dL Urine Protein (Negative) Urine Blood (Negative) Calcium Oxalate Crystal (None) /hpf Amorphous Sediment (None) /hpf Hyaline Casts (0-2) /lpf Urine Mucus (None) /hpf
[2019-04-04] MEDS: TAMSULOSIN 0.4 MG CAP.ER.24H PO SCH (21:09)
[2019-04-04] MEDS: ASPIRIN 81 MG PO SCH (21:09)
[2019-04-05] MEDS: PIPERACILLIN-TAZOBACTAM 3.375 GM in SODIUM CHLORIDE 0.9% 100 ML IVPB SCH ×4 (00:04→22:52)
[2019-04-05 06:23] LABS: Glucose,Whole Blood 109 mg/dL (75-99)
[2019-04-05] MEDS: PANTOPRAZOLE 40 MG TABLET PO SCH (06:37)
[2019-04-05] MEDS: metFORMIN 500 MG TAB PO SCH ×2 (06:37→16:37)
[2019-04-05] MEDS: FINASTERIDE 5 MG TAB PO SCH (09:03)
[2019-04-05] MEDS: ATORVASTATIN 10 MG TAB PO SCH (09:03)
[2019-04-05] MEDS: LOSARTAN 50 MG TAB PO SCH (09:03)
[2019-04-05] MEDS: METOPROLOL TARTRATE 50 MG TAB PO SCH ×2 (09:03→20:05)
[2019-04-05] MEDS: IOPAMIDOL CONTRAST (ORAL USE) VIAL PO PRN ×2 (09:56→10:53)
[2019-04-05] MEDS: SODIUM CHLORIDE 0.9% 1,000 ML IV SCH ×2 (09:59→22:53)
[2019-04-05] MEDS: ONDANSETRON 4 MG/2 ML VIAL IVP PRN (10:57)
--- NOTE | 2019-04-05 11:54 | CT ---
EXAMINATION TYPE: CT abdomen pelvis wo con DATE OF EXAM: 04/05/2019 HISTORY: gastric distention, nausea, vomiting CT DLP: 534.5 mGycm. Automated Exposure Control for Dose Reduction was Utilized. TECHNIQUE: CT scan of the abdomen and pelvis is performed with oral but without IV contrast. COMPARISON: CT February 16, 2019 FINDINGS: Within the limitations of a non-contrast study, the following observations are made. LUNG BASES: New Scattered areas of atelectasis and/or consolidation in both bases. Correlate clinica lly. Multifocal areas of acute infiltrate are in differential. LIVER/GB: Scattered simple-appearing thin-walled cysts throughout the liver redemonstrated of various size and shape. Gallbladder less well-seen on current study. Interval cholecystectomy suspected. PANCREAS: Surgical changes or resection mid to distal pancreas redemonstrated axial image 52. SPLEEN: Spleen not visualized presumably surgically absent similar to prior. ADRENALS: No significant abnormality is seen. KIDNEYS: No significant abnormality is seen. BOWEL: There is contrast distended stomach. There is contrast distended duodenal sweep. Duodenum is d ilated up to over 5 cm axial image 80. There is contrast dilated proximal jejunal loops in the left u pper quadrant. There is transition in the left upper quadrant to prominent fluid-filled small bowel l oops with air-fluid levels. There is small bowel feces sign of bowel loop near stomach axial image 43 and coronal image 59. There is abrupt transition to nondistended small bowel loop axial images 52 th rough 55. GENITAL ORGANS: Uterus is surgically absent markedly atrophic. LYMPH NODES: No greater than 1cm abdominal or pelvic lymph nodes are appreciated. OSSEOUS STRUCTURES: Metallic hardware from right hip arthroplasty causes streak artifact limiting francisco luation of pelvic structures. Moderate to severe narrowing and endplate sclerosis lumbosacral junctio n is redemonstrated. Multilevel spurring in the midthoracic spine is present OTHER: Moderate calcified plaque in ectatic abdominal aorta are redemonstrated. Aorta measures up to 2.8 cm transversely axial image 70. No greater than 3 cm aneurysmal change. Some new ill-defined fat stranding with foci of air anterior abdominal wall near umbilicus axial imag e 84. Correlate clinically for subcutaneous medicine injection otherwise cellulitis needs to be consi dered. IMPRESSION: New proximal small bowel obstruction. Transition point identified. Strongly consider NG t ube placement. Above results communicated to patient's nurse Sintia via telephone at time of dictation. A Document Only message has been documented for Berry Blas MD in the [facility] Result system on 04/05/2019 11:52 AM, Message ID [id number].
[2019-04-05 12:25] LABS: Glucose,Whole Blood 108 mg/dL (75-99)
--- NOTE | 2019-04-05 12:59 | XR ---
EXAMINATION TYPE: XR chest 1V portable DATE OF EXAM: 04/05/2019 COMPARISON: Chest x-ray 02/20/2016 HISTORY: NG tube placement TECHNIQUE: frontal view of the chest is obtained on 2 images. FINDINGS: There has been placement of an NG tube with the distal tip of the tube overlying the midli ne in the upper abdomen, side-port overlying the gastric bubble. There is no focal air space opacity, pleural effusion, or pneumothorax seen. Calcified right apical nodule is again seen. The cardiac russell houette size is within normal limits. The osseous structures are intact. Surgical clips are present in left axilla region. Patient is rotated. IMPRESSION: No acute process.
--- NOTE | 2019-04-05 14:34 | P.PN ---
Subjective Progress Note Date: 04/05/19 CHIEF COMPLAINT: Abdominal pain HISTORY OF PRESENT ILLNESS: Patient is status post laparoscopic cholecystectomy with Dr. Blas. Postop day #1. Orogastric tube was placed at the time of induction and almost 1000 mL of bilious fluid was aspirated. Patient reports his abdominal pain is tolerable today. Denies nausea or vomiting. PHYSICAL EXAM: VITAL SIGNS: Reviewed. GENERAL: Well-developed in no acute distress. HEENT: No sclera icterus. Extraocular movements grossly intact. Moist buccal mucosa. Head is atraumatic, normocephalic. ABDOMEN: Soft. Nondistended. Appropriate surgical tenderness. Laparoscopic surgical sites clean dry and intact without drainage. NEUROLOGIC: Alert and oriented. Cranial nerves II through XII grossly intact. ASSESSMENT: 1. Cholelithiasis, suspected acute cholecystitis 2. Sepsis, present on admission, patient presented with fever, tachycardia, and leukocytosis 2. History of pancreatic cancer, approximately 3 years ago, with surgical resection and chemotherapy 3. Coronary artery disease with previous stent placement 4. Small bowel obstruction PLAN: -Patient underwent CT abdomen and pelvis with oral contrast this morning revealing contrast distended stomach. Duodenum is dilated 2 or 5 cm. Contrast dilated proximal jejunal loops in the left upper quadrant. There is transition the left upper quadrant to prominent fluid-filled small bowel loops with air- fluid levels. There is small bowel feces sign of bowel loop near the stomach. There is abrupt transition to nondistended small bowel loop. Impression reveals new proximal small bowel obstruction. Transition point identified. -Continue nothing by mouth status. Continue IV fluids -Insert NG tube to low intermittent suction for decompression -Obtain chest x-ray post NG tube insertion to confirm placement -Continue antibiotics -Monitor labs -Continue to hold Plavix -Patient to undergo exploratory laparotomy with lysis of adhesions with Dr. Blas tomorrow Nurse practitioner note has been reviewed by physician. Signing provider agrees with the documented findings, assessment, and plan of care. Objective - Vital Signs Vital signs: Vital Signs Temp 97.7 F 04/05/19 11:41 Pulse 64 04/05/19 11:41 Resp 17 04/05/19 11:41 BP 179/100 04/05/19 11:41 Pulse Ox 94 L 04/05/19 11:41 Intake & Output 04/04/19 04/05/19 04/05/19 18:59 06:59 18:59 Intake Total 2450 508 Output Total 5 1650 Balance 2445 -1142 Weight 69.5 kg Intake: IV 1550 8 Sodium Chloride 0.9% 1, 8 000 ml @ 75 mls/hr IV . [id number] Rx#:[id number] Intake, IV Titration 850 Amount ACETAMINOPHEN IV (For NPO 100 ) 1,000 mg In Empty Bag 1 bag @ 400 mls/hr IVPB Q6HR PRN Rx#:[id number] Lactated Ringers 1,000 ml 200 @ 0 mls/hr IV .[facility] Rx#:[id number] Piperacillin-Tazobactam 3 100 .375 gm In Sodium Chloride 0.9% 100 ml @ 25 mls/hr IVPB Q8HR [facility] Rx# :[id number] Sodium Chloride 0.9% 1, 450 000 ml @ 75 mls/hr IV . [id number] [facility] Rx#:[id number] Oral 50 500 Output: Gastric Drainage 1650 Estimated Blood Loss 5 Other: Voiding Method Toilet Toilet Toilet # Voids 1 1 - Labs CBC & Chem 7: 04/03/19 12:39 04/03/19 12:39 Labs: Abnormal Lab Results - Last 24 Hours (Table) 04/04/19 04/05/19 04/05/19 Range/Units 15:56 06:22 12:24 POC Glucose (mg/dL) 119 H 109 H 108 H (75-99) mg/dL
[2019-04-05 15:40] LABS: Basophils % (A) 0 %; Eosinophils % (A) 0 %; HCT 41.5 % (39.0-53.0); Lymphocytes # (A) 1.3 k/uL (1.0-4.8); Lymphocytes % (A) 12 %; MCH 35.3 pg (25.0-35.0); MCHC 33.7 g/dL (31.0-37.0); MCV 104.7 fL (80.0-100.0); Macrocytosis Slight; Mean Platelet Volume 6.8; Monocytes # (A) 0.5 k/uL (0-1.0); Monocytes % (A) 5 %; Neutrophils % (A) 82 %; Platelet Count 214 k/uL (150-450); RBC 3.97 m/uL (4.30-5.90); RDW 12.2 % (11.5-15.5); WBC 11.1 k/uL (3.8-10.6)
[2019-04-05 15:42] LABS: ALT 23 U/L (21-72); AST 27 U/L (17-59); African American GFR (CKD) >90 (>60 ml/min/1.73 sqM); Albumin 3.1 g/dL (3.5-5.0); Alkaline Phosphatase 45 U/L (38-126); Anion Gap 7 mmol/L; Blood Urea Nitrogen 14 mg/dL (9-20); Calcium 8.5 mg/dL (8.4-10.2); Carbon Dioxide 27 mmol/L (22-30); Chloride 100 mmol/L (98-107); Glucose 113 mg/dL (74-99); Potassium 4.1 mmol/L (3.5-5.1); Sodium 134 mmol/L (137-145); Total Bilirubin 2.1 mg/dL (0.2-1.3); Total Protein 5.7 g/dL (6.3-8.2)
[2019-04-05 17:05] LABS: Glucose,Whole Blood 105 mg/dL (75-99)
[2019-04-05] MEDS ORDERED: LACTATED RINGERS 1,000 ML IV SCH (19:15)
[2019-04-05] MEDS: ASPIRIN 81 MG PO SCH (20:05)
[2019-04-05] MEDS: TAMSULOSIN 0.4 MG CAP.ER.24H PO SCH (20:05)
[2019-04-05 20:34] LABS: Glucose,Whole Blood 96 mg/dL (75-99)
--- NOTE | 2019-04-05 22:34 | P.PN ---
Progress Note - Text Progress Note Date: 04/05/19 - Chief Complaint Abdominal pain Interval history: This is a pleasant 79-year-old patient of Dr. Sullivan. Chronic stable medical conditions include coronary artery disease with 5 stents. Followed by flosser out of the area, pancreatic cancer treated for surgery, hypertension, hyperlipidemia, and gender. Yesterday morning patient started increasing right upper quadrant pain became worse. Sharp localized to the upper abdomen. Associated nausea vomiting. Patient started having episodes of fever and sweating. Decided to present to ER. Patient started on IV antibiotics. underwent a laparoscopic cholecystectomy with Dr. Blas.. Today-patient abdomen: Distended. Computed tomography scan of the abdomen did confirm small bowel obstruction. With distended stomach and duodenum. NG tube was placed to suction. Patient felt a bit better. Review of systems: Was done for constitutional, cardiovascular, GI, pulmonary. relevant finding as above Active Medications Aspirin (Aspirin) 81 mg PO HS [facility] Last Admin: 04/05/19 20:05 Dose: 81 mg Documented by: Atorvastatin Calcium (Lipitor) 10 mg PO DAILY [facility] Last Admin: 04/05/19 09:03 Dose: 10 mg Documented by: Finasteride (Proscar) 5 mg PO DAILY [facility] Last Admin: 04/05/19 09:03 Dose: 5 mg Documented by: Hydromorphone HCl (Dilaudid) 0.5 mg IVP Q3HR PRN PRN Reason: Moderate Pain Hydromorphone HCl (Dilaudid) 1 mg IVP Q3HR PRN PRN Reason: Severe Pain Piperacillin Sod/Tazobactam (Sod 3.375 gm/ Sodium Chloride) 100 mls @ 25 mls/hr IVPB Q8HR [facility] Last Admin: 04/05/19 16:29 Dose: 25 mls/hr Documented by: Sodium Chloride (Saline 0.9%) 1,000 mls @ 75 mls/hr IV .[id number] [facility] Last Admin: 04/05/19 09:59 Dose: 75 mls/hr Documented by: Lactated Ringer's (Lactated Ringers) 1,000 mls @ 20 mls/hr IV .Q24H [facility] Last Admin: 04/05/19 20:12 Dose: Not Given Documented by: Losartan Potassium (Cozaar) 50 mg PO DAILY [facility] Last Admin: 04/05/19 09:03 Dose: 50 mg Documented by: Metformin HCl (Glucophage) 500 mg PO BID-W/MEALS [facility] Last Admin: 04/05/19 16:37 Dose: Not Given Documented by: Metoprolol Tartrate (Lopressor) 50 mg PO BID [facility] Last Admin: 04/05/19 20:05 Dose: 50 mg Documented by: Naloxone HCl (Narcan) 0.2 mg IV Q2M PRN PRN Reason: Opioid Reversal Ondansetron HCl (Zofran) 4 mg IVP Q8HR PRN PRN Reason: Nausea And Vomiting Last Admin: 04/05/19 10:57 Dose: 4 mg Documented by: Pantoprazole Sodium (Protonix) 40 mg PO AC-BRKFST [facility] Last Admin: 04/05/19 06:37 Dose: Not Given Documented by: Tamsulosin HCl (Flomax) 0.4 mg PO HS [facility] Last Admin: 04/05/19 20:05 Dose: 0.4 mg Documented by: Physical examination: VITAL SIGNS: 97.7, 64, 17, 179-100, 94% room air GENERAL: Laying in bed, tired EYES: Pupils equal. Conjunctiva normal. HEENT: External appearance of nose and ears normal, oral cavity dry, NG tube. NECK: JVD not raised; masses not palpable. HEART: First and second heart sounds are normal; no edema. LUNGS: Respiratory rate normal; clear to auscultation. ABDOMEN: Soft, upper abdominal tenderness, some distention, no guarding or rigidity, liver spleen not palpable, no masses palpable. PSYCH: Alert and oriented x3; mood and affect normal. INVESTIGATIONS, reviewed in the clinical context: White count 11 hemoglobin 14 creatinine 0.9 Computed tomography scan abdomen-acute small bowel obstruction Previous testing White count 13.9 hemoglobin 14 pressure 4.5 creatinine 0.83 Total bilirubin 1.3 AST/ALT normal amylase lipase is normal Abdominal ultrasound-cholelithiasis, common bile duct bilateral crepitation Multiple hepatic cysts Assessment: -Choledocholithiasis with acute cholecystitis causing sepsis, POA, status post laparoscopic cholecystectomy -Acute postop small bowel obstruction. NG tube in place. -Multiple hepatic cysts -Hyperlipidemia -Hypertension -Coronary artery disease with stent -BPH Plan: NG tube in place. Continue with IV fluids. Patient is on IV antibiotics. Thank you Dr. Blas
[2019-04-06] MEDS: PANTOPRAZOLE 40 MG TABLET PO SCH (06:18)
[2019-04-06] MEDS: metFORMIN 500 MG TAB PO SCH ×2 (06:18→17:26)
[2019-04-06 06:19] LABS: Glucose,Whole Blood 84 mg/dL (75-99)
[2019-04-06 07:18] LABS: Basophils % (A) 0 %; Eosinophils # (A) 0.3 k/uL (0-0.7); Eosinophils % (A) 2 %; HCT 40.6 % (39.0-53.0); HGB 13.8 gm/dL (13.0-17.5); Lymphocytes # (A) 2.5 k/uL (1.0-4.8); Lymphocytes % (A) 21 %; MCH 34.6 pg (25.0-35.0); MCHC 33.9 g/dL (31.0-37.0); MCV 102.2 fL (80.0-100.0); Mean Platelet Volume 6.6; Monocytes % (A) 8 %; Neutrophils % (A) 66 %; Platelet Count 218 k/uL (150-450); RBC 3.97 m/uL (4.30-5.90); RDW 12.2 % (11.5-15.5); WBC 12.1 k/uL (3.8-10.6)
[2019-04-06 07:28] LABS: Calcium 8.5 mg/dL (8.4-10.2); Potassium 3.7 mmol/L (3.5-5.1); Total Bilirubin 1.8 mg/dL (0.2-1.3); Total Protein 5.6 g/dL (6.3-8.2)
[2019-04-06] MEDS: PIPERACILLIN-TAZOBACTAM 3.375 GM in SODIUM CHLORIDE 0.9% 100 ML IVPB SCH ×2 (08:52→17:25)
[2019-04-06] MEDS: METOPROLOL TARTRATE 50 MG TAB PO SCH ×2 (08:53→20:33)
[2019-04-06] MEDS: LOSARTAN 50 MG TAB PO SCH (08:54)
[2019-04-06] MEDS: ATORVASTATIN 10 MG TAB PO SCH (08:54)
[2019-04-06] MEDS: FINASTERIDE 5 MG TAB PO SCH (08:54)
[2019-04-06] MEDS ORDERED: IV FLUID CONTINUATION 1,000 ML IV ONE ×4 (09:49→09:50)
[2019-04-06 10:03] LABS: Glucose,Whole Blood 79 mg/dL (75-99)
[2019-04-06] MEDS ORDERED: DEXAMETHASONE SOD PHOSPHATE 10 MG/ML 1 ML VIAL IV ONE (10:11)
[2019-04-06] MEDS: ONDANSETRON 4 MG/2 ML VIAL IVP PRN (10:12)
[2019-04-06] MEDS ORDERED: HEPARIN SODIUM,PORCINE 5,000 UNIT/ML 1 ML VIAL SQ ONE (10:12)
[2019-04-06] MEDS ORDERED: fentaNYL (PF) 50 MCG/ML 2 ML AMP ONE (10:27)
[2019-04-06] MEDS ORDERED: LIDOCAINE 1% INJ 10MG/ML (20 ML MDV) ONE (10:27)
[2019-04-06] MEDS ORDERED: MIDAZOLAM 2 MG/2 ML VIAL ONE (10:27)
[2019-04-06] MEDS ORDERED: LABETALOL 5 MG/ML VIAL MDV ONE (10:27)
[2019-04-06] MEDS ORDERED: ESMOLOL 100 MG/10 ML VIAL ONE (10:27)
[2019-04-06] MEDS ORDERED: SUCCINYLCHOLINE CHLORIDE 100 MG/5 ML SYR IV ONE (10:27)
[2019-04-06] MEDS ORDERED: hydrALAZINE HCL 20 MG/ML 1 ML VIAL ONE (10:27)
[2019-04-06] MEDS ORDERED: PROPOFOL 10 MG/ML 20 ML VIAL IV ONE (10:27)
[2019-04-06] MEDS ORDERED: GLYCOPYRROLATE 0.2 MG/ML 2 ML VIAL ONE (10:27)
[2019-04-06] MEDS ORDERED: ROCURONIUM BROMIDE 10 MG/ML 10 ML VIAL IV ONE (10:27)
[2019-04-06] MEDS ORDERED: NEOSTIGMINE 1 MG/ML 10 ML VIAL ONE (10:27)
[2019-04-06] MEDS ORDERED: HYDROmorphone 1 MG/ML 1 ML SYRINGE IVP ONE ×3 (12:35→12:42)
--- NOTE | 2019-04-06 12:54 | P.OP ---
Date of Procedure: 04/06/19 Preoperative Diagnosis: Small bowel obstruction Postoperative Diagnosis: Small bowel obstruction Adhesions Internal hernia Procedure(s) Performed: Exploratory laparotomy Lysis of adhesions Anesthesia: FARHAT Surgeon: Berry Blas Estimated Blood Loss (ml): 100 Pathology: none sent Condition: stable Disposition: PACU Description of Procedure: The patient's placed the operative table in the supine position. He received general anesthesia. His abdomen was prepped and draped usual sterile fashion. The abdomen was entered through a midline incision. Upon entering the abdomen there was evidence of adhesions from previous laparotomies. These were lysed with sharp dissection. The Bookwalter tract with wound. In the left upper quadrant appeared to be a evidence of a small bowel obstruction. This is related to an internal hernia with the small bowel entering through the transverse colon mesentery. Approximate 30 minutes operative time used to lyse adhesions and reduce the internal hernia. The defect in the transverse colon mesentery was then closed using 3-0 GI silk suture. Small bowel was then run from the ligament of Treitz to the terminal ileum. There is known to any other obstruction. At this point the abdomen was irrigated there is no bleeding seen. The fascia was closed with looped #1 PDS suture. Skin was closed adrien. Patient top she will was sent to recovery room stable condition.
[2019-04-06 12:59] LABS: Glucose,Whole Blood 102 mg/dL (75-99)
[2019-04-06] MEDS: SODIUM CHLORIDE 0.9% 1,000 ML IV SCH (13:12)
[2019-04-06 13:37] LABS: Glucose,Whole Blood 105 mg/dL (75-99)
[2019-04-06 14:51] LABS: Magnesium 1.9 mg/dL (1.6-2.3); Phosphorus 2.5 mg/dL (2.5-4.5)
[2019-04-06] MEDS: HYDROmorphone 1 MG/ML 1 ML SYRINGE IVP PRN ×2 (15:00→18:20)
[2019-04-06 15:31] LABS: Ionized Calcium 4.6 mg/dL (4.5-5.3)
--- NOTE | 2019-04-06 15:38 | P.PN ---
Progress Note - Text Progress Note Date: 04/06/19 - Chief Complaint Abdominal pain Interval history: This is a pleasant 79-year-old patient of Dr. Sullivan. Chronic stable medical conditions include coronary artery disease with 5 stents. 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 Yesterday morning patient started increasing right upper quadrant pain became worse. Sharp localized to the upper abdomen. Associated nausea vomiting. Patient started having episodes of fever and sweating. Decided to present to ER. Patient started on IV antibiotics. underwent a laparoscopic cholecystectomy with Dr. Blas.. Next day patient abdomen became distended. With vomiting. Patient found to have small bowel obstruction. NG tube was placed. Today-patient taken to the OR. Lysis of adhesions was carried out. NG tube in place. Patient's and son at the bedside. Patient's feeling better. Review of systems: Was done for constitutional, cardiovascular, GI, pulmonary. relevant finding as above Active Medications Aspirin (Aspirin) 81 mg PO HS [facility] Last Admin: 04/05/19 20:05 Dose: 81 mg Documented by: Atorvastatin Calcium (Lipitor) 10 mg PO DAILY [facility] Last Admin: 04/06/19 08:54 Dose: 10 mg Documented by: Finasteride (Proscar) 5 mg PO DAILY [facility] Last Admin: 04/06/19 08:54 Dose: 5 mg Documented by: Hydromorphone HCl (Dilaudid) 0.5 mg IVP Q3HR PRN PRN Reason: Moderate Pain Hydromorphone HCl (Dilaudid) 1 mg IVP Q3HR PRN PRN Reason: Severe Pain Last Admin: 04/06/19 15:00 Dose: 1 mg Documented by: Piperacillin Sod/Tazobactam (Sod 3.375 gm/ Sodium Chloride) 100 mls @ 25 mls/hr IVPB Q8HR [facility] Last Admin: 04/06/19 08:52 Dose: 25 mls/hr Documented by: Sodium Chloride (Saline 0.9%) 1,000 mls @ 75 mls/hr IV .[id number] [facility] Last Admin: 04/06/19 13:12 Dose: 0 mls Documented by: Lactated Ringer's (Lactated Ringers) 1,000 mls @ 20 mls/hr IV .Q24H [facility] Last Admin: 04/05/19 20:12 Dose: Not Given Documented by: Fat Emulsion Intravenous 250 (ml/ IV Solution) 250 mls @ 21 mls/hr IV Q24H [facility] Parenteral Vitamin Supplement 10 ml/ Chromium/Copper/Manganese/Seleni/Zn 1 ml/Amino Ac/Electrol/Dextrose/Calcium 1,011 mls @ 50 mls/hr IV .[id number] [facility] Stop: 04/07/19 12:13 Parenteral Vitamin Supplement 10 ml/ Chromium/Copper/Manganese/Seleni/Zn 1 ml/Amino Ac/Electrol/Dextrose/Calcium 1,011 mls @ 100 mls/hr IV .BY DURATION [facility] Amino Ac/Electrol/Dextrose/Calcium (Clinimix E 4.25%-D10% Solution) 1,000 mls @ 100 mls/hr IV .BY DURATION [facility] Potassium Chloride 10 meq/ IV (Solution) 100 mls @ 100 mls/hr IVPB Q1H [facility] Stop: 04/06/19 17:29 Losartan Potassium (Cozaar) 50 mg PO DAILY [facility] Last Admin: 04/06/19 08:54 Dose: 50 mg Documented by: Metformin HCl (Glucophage) 500 mg PO BID-W/MEALS [facility] Last Admin: 04/06/19 06:18 Dose: Not Given Documented by: Metoprolol Tartrate (Lopressor) 50 mg PO BID [facility] Last Admin: 04/06/19 08:53 Dose: 50 mg Documented by: Naloxone HCl (Narcan) 0.2 mg IV Q2M PRN PRN Reason: Opioid Reversal Ondansetron HCl (Zofran) 4 mg IVP Q8HR PRN PRN Reason: Nausea And Vomiting Last Admin: 04/06/19 10:12 Dose: 4 mg Documented by: Pantoprazole Sodium (Protonix) 40 mg PO AC-BRKFST [facility] Last Admin: 04/06/19 06:18 Dose: Not Given Documented by: Tamsulosin HCl (Flomax) 0.4 mg PO HS [facility] Last Admin: 04/05/19 20:05 Dose: 0.4 mg Documented by: Physical examination: VITAL SIGNS: 97.4, 66, 16, 150/78, 98% on oxygen GENERAL: Laying in bed, tired EYES: Pupils equal. Conjunctiva normal. HEENT: External appearance of nose and ears normal, oral cavity dry, NG tube. 2 suction. NECK: JVD not raised; masses not palpable. HEART: First and second heart sounds are normal; no edema. LUNGS: Respiratory rate normal; clear to auscultation. ABDOMEN: Soft, upper abdominal tenderness, some distention, no guarding or rigidity, liver spleen not palpable, no masses palpable. PSYCH: Alert and oriented x3; mood and affect normal. INVESTIGATIONS, reviewed in the clinical context: White count 12.1 hemoglobin 10.8 creatinine 0.96 Previous testing White count 13.9 hemoglobin 14 pressure 4.5 creatinine 0.83 Total bilirubin 1.3 AST/ALT normal amylase lipase is normal Abdominal ultrasound-cholelithiasis, common bile duct bilateral crepitation Multiple hepatic cysts Computed tomography scan abdomen-acute small bowel obstruction Assessment: -Choledocholithiasis with acute cholecystitis causing sepsis, POA, status post laparoscopic cholecystectomy -Acute postop small bowel obstruction. Status post lysis of adhesion. -Multiple hepatic cysts -Hyperlipidemia -Hypertension -Coronary artery disease with stent -BPH Plan: Patient went to the or this morning. NG tube to suction. Getting IV fluids. Care was discussed in length with the patient and son at the bedside. There have a good understanding of the patient's clinical picture. Thank you Dr. Blas
[2019-04-06] MEDS ORDERED: MVI, ADULT NO.4 WITH VIT K 10 ML, TRACE (CONC-1ML/DOSE) 1 ML in AMINO ACID 4.25%-D10W+L... IV ONE ×3 (16:00)
[2019-04-06] MEDS: POTASSIUM CHLORIDE 10 MEQ in WATER FOR INJECTION 1 100ML.BAG IVPB SCH ×2 (17:26→19:52)
[2019-04-06 17:30] LABS: Glucose,Whole Blood 121 mg/dL (75-99)
[2019-04-06] MEDS ORDERED: cloNIDine 0.1 MG/24HR PATCH TRANSDERM SCH (19:00)
[2019-04-06] MEDS: FAT EMULSION 20% 250 ML in EMPTY BAG 1 BAG IV SCH (20:16)
[2019-04-06] MEDS: ASPIRIN 81 MG PO SCH (20:33)
[2019-04-06] MEDS: TAMSULOSIN 0.4 MG CAP.ER.24H PO SCH (20:33)
[2019-04-06 21:01] LABS: Glucose,Whole Blood 139 mg/dL (75-99)
[2019-04-06 23:50] LABS: Glucose,Whole Blood 170 mg/dL (75-99)
[2019-04-07] MEDS ORDERED: ENALAPRILAT 1.25 MG/ML 1 ML VIAL IVP STA
[2019-04-07] MEDS ORDERED: cloNIDine 0.2 MG/24HR PATCH TRANSDERM SCH (00:15)
[2019-04-07] MEDS: INSULIN ASPART (NovoLOG) 100 UNIT/ML VIAL SQ SCH ×5 (00:20→23:22)
[2019-04-07] MEDS: PIPERACILLIN-TAZOBACTAM 3.375 GM in SODIUM CHLORIDE 0.9% 100 ML IVPB SCH ×4 (00:21→23:07)
[2019-04-07] MEDS: HYDROmorphone 0.5 MG/0.5 ML SYRINGE IVP PRN ×5 (01:20→16:01)
[2019-04-07] MEDS: ENALAPRILAT 1.25 MG/ML 1 ML VIAL IVP PRN ×2 (04:31→16:01)
[2019-04-07 06:02] LABS: Glucose,Whole Blood 178 mg/dL (75-99)
[2019-04-07] MEDS: PANTOPRAZOLE 40 MG TABLET PO SCH (06:20)
[2019-04-07] MEDS: metFORMIN 500 MG TAB PO SCH ×2 (06:20→17:49)
[2019-04-07 06:48] LABS: Basophils # (A) 0.1 k/uL (0-0.2); Basophils % (A) 0 %; Eosinophils # (A) 0.1 k/uL (0-0.7); Eosinophils % (A) 0 %; HCT 43.9 % (39.0-53.0); HGB 14.5 gm/dL (13.0-17.5); Lymphocytes # (A) 1.5 k/uL (1.0-4.8); Lymphocytes % (A) 11 %; MCH 33.6 pg (25.0-35.0); Mean Platelet Volume 7.2; Monocytes # (A) 1.3 k/uL (0-1.0); Monocytes % (A) 9 %; Neutrophils # (A) 10.9 k/uL (1.3-7.7); Neutrophils % (A) 78 %; Platelet Count 234 k/uL (150-450); RBC 4.31 m/uL (4.30-5.90); RDW 12.1 % (11.5-15.5)
[2019-04-07 06:53] LABS: Ionized Calcium 4.8 mg/dL (4.5-5.3)
[2019-04-07 07:05] LABS: ALT 43 U/L (21-72); AST 35 U/L (17-59); African American GFR (CKD) >90 (>60 ml/min/1.73 sqM); Alkaline Phosphatase 52 U/L (38-126); Anion Gap 6 mmol/L; Blood Urea Nitrogen 15 mg/dL (9-20); Calcium 8.3 mg/dL (8.4-10.2); Carbon Dioxide 29 mmol/L (22-30); Chloride 101 mmol/L (98-107); Glucose 154 mg/dL (74-99); Potassium 4.2 mmol/L (3.5-5.1); Sodium 136 mmol/L (137-145); Total Protein 5.6 g/dL (6.3-8.2)
[2019-04-07] MEDS ORDERED: 1: MVI, ADULT NO.4 WITH VIT K 10 ML, TRACE (CONC-1ML/DOSE) 1 ML in AMINO ACID 4.25%-D10W IV SCH ×3 (08:00)
[2019-04-07] MEDS: LOSARTAN 50 MG TAB PO SCH (08:18)
[2019-04-07] MEDS: FINASTERIDE 5 MG TAB PO SCH (08:18)
[2019-04-07] MEDS: ATORVASTATIN 10 MG TAB PO SCH (08:18)
[2019-04-07] MEDS: METOPROLOL TARTRATE 50 MG TAB PO SCH ×2 (08:18→20:31)
[2019-04-07] MEDS: LACTATED RINGERS 1,000 ML IV SCH (10:00)
--- NOTE | 2019-04-07 11:07 | P.PN ---
Subjective 79-year-old the is admitted after his recent cholecystectomy followed by partial small bowel obstruction and patient underwent expiratory laparotomy and the lysis of adhesions patient has small amount of drainage from the NG tube since today morning. Patient will be continued on IV fluids patient is otherwise feeling better except for abdominal pain. Patient does have bowel sounds. Did not pass gas did not move his bowels yet. Still has an NG tube in place Constitutional: Denied any fatigue denied any fever. Cardio vascular: denied any chest pain, palpitations Gastrointestinal denied any nausea vomiting Pulmonary: Denied any shortness of breath cough Neurologic denied any new focal deficits All inpatient medications were reviewed and appropriate changes in these medications as dictated in the interval history and assessment and plan. Objective - Vital Signs Vital signs: Vital Signs Temp 97.5 F L 04/07/19 08:00 Pulse 70 04/07/19 08:00 Resp 18 04/07/19 08:00 BP 144/75 04/07/19 10:00 Pulse Ox 97 04/07/19 08:00 Intake & Output 04/06/19 04/07/19 04/07/19 18:59 06:59 18:59 Intake Total 2162 Output Total 850 1175 Balance 1312 -1175 Weight 68.7 kg 72.5 kg Intake: IV 1562 Sodium Chloride 0.9% 1, 600 000 ml @ 75 mls/hr IV . [id number] [facility] Rx#:[id number] Intake, IV Titration 600 Amount Sodium Chloride 0.9% 1, 600 000 ml @ 75 mls/hr IV . [id number] [facility] Rx#:[id number] Oral 0 Output: Gastric Drainage 225 350 Urine 525 825 Estimated Blood Loss 100 Other: Voiding Method Toilet Indwelling Catheter Urinal Urinal # Voids 0 - Exam PHYSICAL EXAMINATION: GENERAL: The patient is alert and oriented x3, not in any acute distress. Well developed, well nourished. HEENT: Pupils are round and equally reacting to light. EOMI. No scleral icterus. No conjunctival pallor. Normocephalic, atraumatic. No pharyngeal erythema. No thyromegaly. CARDIOVASCULAR: S1 and S2 present. No murmurs, rubs, or gallops. PULMONARY: Chest is clear to auscultation, no wheezing or crackles. ABDOMEN: Soft, nontender, nondistended, normoactive bowel sounds. No palpable organomegaly. NG tube in place surgical site area clean without any redness MUSCULOSKELETAL: No joint swelling or deformity. EXTREMITIES: No cyanosis, clubbing, or pedal edema. NEUROLOGICAL: Gross neurological examination did not reveal any focal deficits. SKIN: No rashes. - Labs CBC & Chem 7: 04/07/19 06:00 04/07/19 06:00 Labs: Abnormal Lab Results - Last 24 Hours (Table) 04/06/19 04/06/19 04/06/19 Range/Units 12:57 13:35 17:29 WBC (3.8-10.6) k/uL MCV (80.0-100.0) fL Neutrophils # (1.3-7.7) k/uL Monocytes # (0-1.0) k/uL Sodium (137-145) mmol/L Glucose (74-99) mg/dL POC Glucose (mg/dL) 102 H 105 H 121 H (75-99) mg/dL Calcium (8.4-10.2) mg/dL Total Protein (6.3-8.2) g/dL Albumin (3.5-5.0) g/dL 04/06/19 04/06/19 04/07/19 Range/Units 20:59 23:49 06:00 WBC 14.0 H (3.8-10.6) k/uL MCV 102.0 H (80.0-100.0) fL Neutrophils # 10.9 H (1.3-7.7) k/uL Monocytes # 1.3 H (0-1.0) k/uL Sodium (137-145) mmol/L Glucose (74-99) mg/dL POC Glucose (mg/dL) 139 H 170 H (75-99) mg/dL Calcium (8.4-10.2) mg/dL Total Protein (6.3-8.2) g/dL Albumin (3.5-5.0) g/dL 04/07/19 04/07/19 Range/Units 06:00 06:01 WBC (3.8-10.6) k/uL MCV (80.0-100.0) fL Neutrophils # (1.3-7.7) k/uL Monocytes # (0-1.0) k/uL Sodium 136 L (137-145) mmol/L Glucose 154 H (74-99) mg/dL POC Glucose (mg/dL) 178 H (75-99) mg/dL Calcium 8.3 L (8.4-10.2) mg/dL Total Protein 5.6 L (6.3-8.2) g/dL Albumin 3.0 L (3.5-5.0) g/dL Assessment and Plan Plan: -Partial small bowel obstruction secondary to adhesions improving at this time patient is status post expected to laparotomy. NG tube suction supportive care. IV fluids. Patient is on TPN and antibiotics as per general surgery -Type 2 diabetes mellitus sliding scale insulin Recent cholecystectomy -Hyperlipidemia Hypertension : Patient blood pressure is elevated as he cannot tolerate any oral medication patient is on clonidine patch at this time. - coronary artery disease with stent in the past - benign prostatic hypertrophic -leukocytosis secondary to bowel obstruction DVT prophylaxis with subcutaneous heparin
--- NOTE | 2019-04-07 11:15 | P.PN ---
Subjective Progress Note Date: 04/07/19 CHIEF COMPLAINT: Acute cholecystitis and small bowel obstruction HISTORY OF PRESENT ILLNESS: The patient is a 79-year-old male status post cholecystectomy followed by open lysis of adhesions at a different date. He has not ambulated. No bowel function flatus or bowel movement. He is on TPN. Pain is controlled. ROS: No reports of nausea and vomiting. No bowel movements. No fevers or chills. No new chest pain. No productive sputum PHYSICAL EXAM: VITAL SIGNS: Reviewed CONSTITUTIONAL: Well developed and in no acute distress. EYES: Conjuctivae without sclera icterus. Extraocular movements grossly intact. HEAD, EARS, NOSE, THROAT: Moist buccal mucosa. Head is atraumatic, normocephalic. Hears conversational speech. No nasal drainage. NG tube present NECK: Supple. No thyroidomegaly. RESPIRATORY: Non-labored respirations and equal bilateral excursions. CARDIOVASCULAR: Palpable 2+ radial pulses. ABDOMEN: Dressing intact. Soft. No peritonitis. MUSCULOSKELETAL: No gross deformity of the lower extremities noted. No clubbing. No cyanosis. SKIN: Good skin turgor. Well perfused. NEUROLOGIC: Cranial nerves I through XII grossly intact. No focal or lateralizing signs. PSYCH: Appropriate affect. Alert and oriented to person, place and time. CLINCAL LABS: White blood cell count elevated at 14,000 ASSESSMENT: 1. Acute cholecystitis 2. Small bowel obstruction PLAN: 1. Ambulation encouraged. 2. Continue ice chips. 3. Questions answered regarding bowel function with family/ at bedside Objective - Vital Signs Vital signs: Vital Signs Temp 97.5 F L 04/07/19 08:00 Pulse 70 04/07/19 08:00 Resp 18 04/07/19 08:00 BP 144/75 04/07/19 10:00 Pulse Ox 97 04/07/19 08:00 Intake & Output 04/06/19 04/07/19 04/07/19 18:59 06:59 18:59 Intake Total 2162 Output Total 850 1175 Balance 1312 -1175 Weight 68.7 kg 72.5 kg Intake: IV 1562 Sodium Chloride 0.9% 1, 600 000 ml @ 75 mls/hr IV . [id number] [facility] Rx#:[id number] Intake, IV Titration 600 Amount Sodium Chloride 0.9% 1, 600 000 ml @ 75 mls/hr IV . [id number] [facility] Rx#:[id number] Oral 0 Output: Gastric Drainage 225 350 Urine 525 825 Estimated Blood Loss 100 Other: Voiding Method Toilet Indwelling Catheter Urinal Urinal # Voids 0 - Labs CBC & Chem 7: 04/08/19 06:04 04/09/19 06:06 Labs: Abnormal Lab Results - Last 24 Hours (Table) 04/06/19 04/06/19 04/06/19 Range/Units 12:57 13:35 17:29 WBC (3.8-10.6) k/uL MCV (80.0-100.0) fL Neutrophils # (1.3-7.7) k/uL Monocytes # (0-1.0) k/uL Sodium (137-145) mmol/L Glucose (74-99) mg/dL POC Glucose (mg/dL) 102 H 105 H 121 H (75-99) mg/dL Calcium (8.4-10.2) mg/dL Total Protein (6.3-8.2) g/dL Albumin (3.5-5.0) g/dL 04/06/19 04/06/19 04/07/19 Range/Units 20:59 23:49 06:00 WBC 14.0 H (3.8-10.6) k/uL MCV 102.0 H (80.0-100.0) fL Neutrophils # 10.9 H (1.3-7.7) k/uL Monocytes # 1.3 H (0-1.0) k/uL Sodium (137-145) mmol/L Glucose (74-99) mg/dL POC Glucose (mg/dL) 139 H 170 H (75-99) mg/dL Calcium (8.4-10.2) mg/dL Total Protein (6.3-8.2) g/dL Albumin (3.5-5.0) g/dL 04/07/19 04/07/19 Range/Units 06:00 06:01 WBC (3.8-10.6) k/uL MCV (80.0-100.0) fL Neutrophils # (1.3-7.7) k/uL Monocytes # (0-1.0) k/uL Sodium 136 L (137-145) mmol/L Glucose 154 H (74-99) mg/dL POC Glucose (mg/dL) 178 H (75-99) mg/dL Calcium 8.3 L (8.4-10.2) mg/dL Total Protein 5.6 L (6.3-8.2) g/dL Albumin 3.0 L (3.5-5.0) g/dL Assessment and Plan (1) Acute cholecystitis due to biliary calculus Current Visit: Yes Status: Acute Code(s): K80.00 - CALCULUS OF GALLBLADDER W ACUTE CHOLECYST W/O OBSTRUCTION SNOMED Code(s): 26438856702995 (2) Small bowel obstruction due to adhesions Current Visit: Yes Status: Acute Code(s): K56.50 - INTESTNL ADHESIONS, UNSP TO PARTIAL VERSUS COMPLETE OBST SNOMED Code(s): 766501612 (3) Protein-calorie malnutrition, mild Current Visit: Yes Status: Acute Code(s): E44.1 - MILD PROTEIN-CALORIE MALNUTRITION SNOMED Code(s): 32552221 (4) Inadequate dietary intake of protein Current Visit: Yes Status: Acute Code(s): E63.9 - NUTRITIONAL DEFICIENCY, UNSPECIFIED SNOMED Code(s): 996882789
[2019-04-07 11:36] LABS: Glucose,Whole Blood 153 mg/dL (75-99)
[2019-04-07] MEDS: HEPARIN SODIUM,PORCINE 5,000 UNIT/ML 1 ML VIAL SQ SCH ×2 (14:56→23:06)
[2019-04-07] MEDS: 1: MVI, ADULT NO.4 WITH VIT K 10 ML, TRACE (CONC-1ML/DOSE) 1 ML in AMINO ACID 4.25%-D10W IV SCH ×6 (14:56→23:12)
[2019-04-07] MEDS: FAT EMULSION 20% 250 ML in EMPTY BAG 1 BAG IV SCH (17:44)
[2019-04-07 17:46] LABS: Glucose,Whole Blood 176 mg/dL (75-99)
[2019-04-07] MEDS: ASPIRIN 81 MG PO SCH (20:31)
[2019-04-07] MEDS: TAMSULOSIN 0.4 MG CAP.ER.24H PO SCH (20:31)
[2019-04-07 23:19] LABS: Glucose,Whole Blood 155 mg/dL (75-99)
[2019-04-08] MEDS: LACTATED RINGERS 1,000 ML IV SCH ×2 (06:17→23:32)
[2019-04-08 06:19] LABS: Glucose,Whole Blood 147 mg/dL (75-99)
[2019-04-08] MEDS: PANTOPRAZOLE 40 MG TABLET PO SCH (06:22)
[2019-04-08] MEDS: metFORMIN 500 MG TAB PO SCH ×2 (06:23→17:12)
[2019-04-08] MEDS: INSULIN ASPART (NovoLOG) 100 UNIT/ML VIAL SQ SCH ×4 (06:24→23:30)
[2019-04-08 06:27] LABS: HCT 38.4 % (39.0-53.0); HGB 13.7 gm/dL (13.0-17.5); MCHC 35.6 g/dL (31.0-37.0); MCV 101.2 fL (80.0-100.0); Mean Platelet Volume 6.6; Platelet Count 233 k/uL (150-450); RDW 11.9 % (11.5-15.5); WBC 13.9 k/uL (3.8-10.6)
[2019-04-08 06:33] LABS: Ionized Calcium 4.7 mg/dL (4.5-5.3)
[2019-04-08 06:41] LABS: African American GFR (CKD) >90 (>60 ml/min/1.73 sqM); Anion Gap 5 mmol/L; Blood Urea Nitrogen 17 mg/dL (9-20); Calcium 8.2 mg/dL (8.4-10.2); Carbon Dioxide 31 mmol/L (22-30); Chloride 98 mmol/L (98-107); Glucose 145 mg/dL (74-99); Magnesium 2.1 mg/dL (1.6-2.3); Phosphorus 2.6 mg/dL (2.5-4.5); Potassium 3.7 mmol/L (3.5-5.1); Sodium 134 mmol/L (137-145)
[2019-04-08] MEDS: ATORVASTATIN 10 MG TAB PO SCH (08:05)
[2019-04-08] MEDS: LOSARTAN 50 MG TAB PO SCH (08:05)
[2019-04-08] MEDS: HYDROmorphone 0.5 MG/0.5 ML SYRINGE IVP PRN ×3 (08:05→23:31)
[2019-04-08] MEDS: METOPROLOL TARTRATE 50 MG TAB PO SCH ×2 (08:05→20:18)
[2019-04-08] MEDS: PIPERACILLIN-TAZOBACTAM 3.375 GM in SODIUM CHLORIDE 0.9% 100 ML IVPB SCH ×3 (08:06→23:32)
[2019-04-08] MEDS: FINASTERIDE 5 MG TAB PO SCH (08:06)
[2019-04-08] MEDS: HEPARIN SODIUM,PORCINE 5,000 UNIT/ML 1 ML VIAL SQ SCH ×3 (08:06→23:29)
[2019-04-08] MEDS: 1: MVI, ADULT NO.4 WITH VIT K 10 ML, TRACE (CONC-1ML/DOSE) 1 ML in AMINO ACID 4.25%-D10W IV SCH ×6 (08:21→19:49)
[2019-04-08] MEDS: POTASSIUM CHLORIDE 10 MEQ in WATER FOR INJECTION 1 100ML.BAG IVPB SCH ×2 (08:45→09:50)
--- NOTE | 2019-04-08 10:57 | P.PN ---
Subjective 79-year-old the is admitted after his recent cholecystectomy followed by partial small bowel obstruction and patient underwent expiratory laparotomy and the lysis of adhesions patient has small amount of drainage from the NG tube since today morning. Patient will be continued on IV fluids patient is otherwise feeling better except for abdominal pain. Patient does have bowel sounds. Did not pass gas did not move his bowels yet. Still has an NG tube in place 04/08/2019 patient still has some NG tube drainage does have good bowel sounds did not pass gas didn't move his bowel. Patient is on peripheral parenteral nutrition hopefully we can get rid of NG tube out today and try to avoid PICC line. Constitutional: Denied any fatigue denied any fever. Cardio vascular: denied any chest pain, palpitations Gastrointestinal denied any nausea vomiting Pulmonary: Denied any shortness of breath cough Neurologic denied any new focal deficits All inpatient medications were reviewed and appropriate changes in these medications as dictated in the interval history and assessment and plan. Objective - Vital Signs Vital signs: Vital Signs Temp 97.6 F 04/08/19 08:00 Pulse 70 04/08/19 08:00 Resp 18 04/08/19 08:00 BP 186/87 04/08/19 08:00 Pulse Ox 96 04/08/19 08:00 Intake & Output 04/07/19 04/08/19 04/08/19 18:59 06:59 18:59 Intake Total 900 1011 Output Total 550 1150 Balance 350 -139 Weight 71.7 kg Intake: IV 100 Piperacillin-Tazobactam 3 100 .375 gm In Sodium Chloride 0.9% 100 ml @ 25 mls/hr IVPB Q8HR [facility] Rx# :[id number] Intake, IV Titration 800 1011 Amount Lactated Ringers 1,000 ml 300 @ 50 mls/hr IV .Q20H [facility] Rx#:[id number] Mvi, Adult No.4 with Vit 200 1011 K 10 ml Trace (Conc-1Ml/ Dose) 1 ml In Amino Acid 4.25%-D10w+Lytes*E* 1,000 ml @ 100 mls/hr IV .BY DURATION [facility] Rx#: [id number] Mvi, Adult No.4 with Vit 300 K 10 ml Trace (Conc-1Ml/ Dose) 1 ml In Amino Acid 4.25%-D10w+Lytes*E* 1,000 ml @ 50 mls/hr IV . [id number] [facility] Rx#:[id number] Output: Gastric Drainage 550 200 Urine 950 Other: Voiding Method Urinal Urinal Urinal # Voids 1 - Exam PHYSICAL EXAMINATION: GENERAL: The patient is alert and oriented x3, not in any acute distress. Well developed, well nourished. HEENT: Pupils are round and equally reacting to light. EOMI. No scleral icterus. No conjunctival pallor. Normocephalic, atraumatic. No pharyngeal erythema. No thyromegaly. CARDIOVASCULAR: S1 and S2 present. No murmurs, rubs, or gallops. PULMONARY: Chest is clear to auscultation, no wheezing or crackles. ABDOMEN: Soft, nontender, nondistended, normoactive bowel sounds. No palpable organomegaly. NG tube in place surgical site area clean without any redness MUSCULOSKELETAL: No joint swelling or deformity. EXTREMITIES: No cyanosis, clubbing, or pedal edema. NEUROLOGICAL: Gross neurological examination did not reveal any focal deficits. SKIN: No rashes. - Labs CBC & Chem 7: 04/08/19 06:04 04/08/19 06:04 Labs: Abnormal Lab Results - Last 24 Hours (Table) 04/07/19 04/07/19 04/07/19 Range/Units 11:34 17:44 23:18 WBC (3.8-10.6) k/uL RBC (4.30-5.90) m/uL Hct (39.0-53.0) % MCV (80.0-100.0) fL MCH (25.0-35.0) pg Sodium (137-145) mmol/L Carbon Dioxide (22-30) mmol/L Glucose (74-99) mg/dL POC Glucose (mg/dL) 153 H 176 H 155 H (75-99) mg/dL Calcium (8.4-10.2) mg/dL 04/08/19 04/08/19 04/08/19 Range/Units 06:04 06:04 06:18 WBC 13.9 H (3.8-10.6) k/uL RBC 3.80 L (4.30-5.90) m/uL Hct 38.4 L (39.0-53.0) % MCV 101.2 H (80.0-100.0) fL MCH 36.0 H (25.0-35.0) pg Sodium 134 L (137-145) mmol/L Carbon Dioxide 31 H (22-30) mmol/L Glucose 145 H (74-99) mg/dL POC Glucose (mg/dL) 147 H (75-99) mg/dL Calcium 8.2 L (8.4-10.2) mg/dL Assessment and Plan Plan: -Partial small bowel obstruction secondary to adhesions improving at this time patient is status post exploratory laparotomy. NG tube suction supportive care. IV fluids. Patient is on TPN and antibiotics as per general surgery -Type 2 diabetes mellitus sliding scale insulin Recent cholecystectomy -Hyperlipidemia Hypertension : Patient blood pressure is elevated as he cannot tolerate any oral medication patient is on clonidine patch at this time. - coronary artery disease with stent in the past - benign prostatic hypertrophic -leukocytosis secondary to bowel obstruction DVT prophylaxis with subcutaneous heparin
[2019-04-08 12:43] LABS: Glucose,Whole Blood 169 mg/dL (75-99)
--- NOTE | 2019-04-08 12:58 | P.PN ---
Subjective Progress Note Date: 04/08/19 CHIEF COMPLAINT: Acute cholecystitis and small bowel obstruction HISTORY OF PRESENT ILLNESS: The patient is a 79-year-old male status post cholecystectomy followed by open lysis of adhesions at a different date. Family is at bedside including daughter and spouse. He is ambulating. No passage of f latus. No nausea or vomiting. Nasogastric tube present. His main concern includes abdominal pain after coughing. ROS: No reports of nausea and vomiting. No bowel movements. No fevers or chills. No new chest pain. No productive sputum PHYSICAL EXAM: VITAL SIGNS: Reviewed CONSTITUTIONAL: Well developed and in no acute distress. EYES: Conjuctivae without sclera icterus. Extraocular movements grossly intact. HEAD, EARS, NOSE, THROAT: Moist buccal mucosa. Head is atraumatic, normocephal ic. Hears conversational speech. No nasal drainage. NG tube present NECK: Supple. No thyroidomegaly. RESPIRATORY: Non-labored respirations and equal bilateral excursions. CARDIOVASCULAR: Palpable 2+ radial pulses. ABDOMEN: Dressing intact. No peritonitis MUSCULOSKELETAL: No gross deformity of the lower extremities noted. No clubbing. No cyanosis. SKIN: Good skin turgor. Well perfused. NEUROLOGIC: Cranial nerves I through XII grossly intact. No focal or lateralizing signs. PSYCH: Appropriate affect. Alert and oriented to person, place and time. CLINCAL LABS: White blood cell count elevated at 14,000 ASSESSMENT: 1. Acute cholecystitis 2. Small bowel obstruction PLAN: 1. Recommend using abdominal support such as abdominal binder 2. Bedside teaching of using a pillow to splint his cough was reviewed. 3. Ambulation encouraged. Objective - Vital Signs Vital signs: Vital Signs Temp 98.0 F 04/08/19 11:49 Pulse 57 L 04/08/19 11:49 Resp 18 04/08/19 11:49 BP 187/88 04/08/19 11:49 Pulse Ox 98 04/08/19 11:49 Intake & Output 04/07/19 04/08/19 04/08/19 18:59 06:59 18:59 Intake Total 900 1011 Output Total 550 1150 Balance 350 -139 Weight 71.7 kg Intake: IV 100 Piperacillin-Tazobactam 3 100 .375 gm In Sodium Chloride 0.9% 100 ml @ 25 mls/hr IVPB Q8HR [facility] Rx# :[id number] Intake, IV Titration 800 1011 Amount Lactated Ringers 1,000 ml 300 @ 50 mls/hr IV .Q20H [facility] Rx#:[id number] Mvi, Adult No.4 with Vit 200 1011 K 10 ml Trace (Conc-1Ml/ Dose) 1 ml In Amino Acid 4.25%-D10w+Lytes*E* 1,000 ml @ 100 mls/hr IV .BY DURATION [facility] Rx#: [id number] Mvi, Adult No.4 with Vit 300 K 10 ml Trace (Conc-1Ml/ Dose) 1 ml In Amino Acid 4.25%-D10w+Lytes*E* 1,000 ml @ 50 mls/hr IV . [id number] [facility] Rx#:[id number] Output: Gastric Drainage 550 200 Urine 950 Other: Voiding Method Urinal Urinal Urinal # Voids 1 - Labs CBC & Chem 7: 04/08/19 06:04 04/09/19 06:06 Labs: Abnormal Lab Results - Last 24 Hours (Table) 04/07/19 04/07/19 04/08/19 Range/Units 17:44 23:18 06:04 WBC (3.8-10.6) k/uL RBC (4.30-5.90) m/uL Hct (39.0-53.0) % MCV (80.0-100.0) fL MCH (25.0-35.0) pg Sodium 134 L (137-145) mmol/L Carbon Dioxide 31 H (22-30) mmol/L Glucose 145 H (74-99) mg/dL POC Glucose (mg/dL) 176 H 155 H (75-99) mg/dL Calcium 8.2 L (8.4-10.2) mg/dL 04/08/19 04/08/19 04/08/19 Range/Units 06:04 06:18 11:55 WBC 13.9 H (3.8-10.6) k/uL RBC 3.80 L (4.30-5.90) m/uL Hct 38.4 L (39.0-53.0) % MCV 101.2 H (80.0-100.0) fL MCH 36.0 H (25.0-35.0) pg Sodium (137-145) mmol/L Carbon Dioxide (22-30) mmol/L Glucose (74-99) mg/dL POC Glucose (mg/dL) 147 H 169 H (75-99) mg/dL Calcium (8.4-10.2) mg/dL Assessment and Plan (1) Acute cholecystitis due to biliary calculus Current Visit: Yes Status: Acute Code(s): K80.00 - CALCULUS OF GALLBLADDER W ACUTE CHOLECYST W/O OBSTRUCTION SNOMED Code(s): 88628134332493 (2) Cholelithiasis Current Visit: Yes Status: Acute Code(s): K80.20 - CALCULUS OF GALLBLADDER W/O CHOLECYSTITIS W/O OBSTRUCTION SNOMED Code(s): 309685793 (3) Inadequate dietary intake of protein Current Visit: Yes Status: Acute Code(s): E63.9 - NUTRITIONAL DEFICIENCY, UNSPECIFIED SNOMED Code(s): 744269797 (4) Protein-calorie malnutrition, mild Current Visit: Yes Status: Acute Code(s): E44.1 - MILD PROTEIN-CALORIE MALNUTRITION SNOMED Code(s): 41149868 (5) Small bowel obstruction due to adhesions Current Visit: Yes Status: Acute Code(s): K56.50 - INTESTNL ADHESIONS, UNSP TO PARTIAL VERSUS COMPLETE OBST SNOMED Code(s): 460442577
[2019-04-08 17:05] LABS: Glucose,Whole Blood 176 mg/dL (75-99)
[2019-04-08] MEDS: FAT EMULSION 20% 250 ML in EMPTY BAG 1 BAG IV SCH (17:11)
[2019-04-08] MEDS: TAMSULOSIN 0.4 MG CAP.ER.24H PO SCH (20:18)
[2019-04-08] MEDS: ASPIRIN 81 MG PO SCH (20:18)
[2019-04-08 23:29] LABS: Glucose,Whole Blood 146 mg/dL (75-99)
[2019-04-09] MEDS: 1: MVI, ADULT NO.4 WITH VIT K 10 ML, TRACE (CONC-1ML/DOSE) 1 ML in AMINO ACID 4.25%-D10W IV SCH ×9 (05:13→23:32)
[2019-04-09 06:21] LABS: Glucose,Whole Blood 137 mg/dL (75-99)
[2019-04-09] MEDS: PANTOPRAZOLE 40 MG TABLET PO SCH (06:24)
[2019-04-09] MEDS: metFORMIN 500 MG TAB PO SCH ×2 (06:24→17:49)
[2019-04-09] MEDS: INSULIN ASPART (NovoLOG) 100 UNIT/ML VIAL SQ SCH ×3 (06:25→18:06)
--- NOTE | 2019-04-09 06:34 | XR ---
EXAM: XR Chest, 1 View CLINICAL HISTORY: ITS.REASON XR Reason: NG tube placement confirmation TECHNIQUE: Frontal view of the chest. COMPARISON: 04/05/19 IMPRESSION: NG tube tip terminates just past the GE junction. Recommend advancing at least 10 cm.
[2019-04-09 06:50] LABS: African American GFR (CKD) >90 (>60 ml/min/1.73 sqM); Anion Gap 9 mmol/L; Blood Urea Nitrogen 19 mg/dL (9-20); Calcium 8.5 mg/dL (8.4-10.2); Carbon Dioxide 28 mmol/L (22-30); Chloride 96 mmol/L (98-107); Glucose 130 mg/dL (74-99); Phosphorus 3.6 mg/dL (2.5-4.5); Potassium 3.7 mmol/L (3.5-5.1); Sodium 133 mmol/L (137-145)
--- NOTE | 2019-04-09 07:16 | XR ---
EXAMINATION TYPE: XR abdomen 1V DATE OF EXAM: 04/09/2019 CLINICAL HISTORY: Nasogastric tube placement TECHNIQUE: Single portable upright abdominal radiograph COMPARISON: None. FINDINGS: There are dilated loops of small bowel stacked upon one another measuring up to 4.6 cm. Ant erior tube is placed well within the region of the gastric body with the Sissel tip oriented cephalad and left lateral. Right paramedian surgical adrien on the skin. Lungs are well aerated. Moderate de generative changes of the osseous structures. Limited evaluation for pneumoperitoneum in supine imagi ng. IMPRESSION: Enteric tube appears overall satisfactory place although coiled in the stomach with its d istal tip tip oriented cephalad and laterally. Partial visualization of the stomach demonstrates evid ence of small bowel obstruction.
[2019-04-09] MEDS: PIPERACILLIN-TAZOBACTAM 3.375 GM in SODIUM CHLORIDE 0.9% 100 ML IVPB SCH ×2 (09:09→18:05)
[2019-04-09] MEDS: METOPROLOL TARTRATE 50 MG TAB PO SCH ×2 (09:10→21:31)
[2019-04-09] MEDS: FINASTERIDE 5 MG TAB PO SCH (09:10)
[2019-04-09] MEDS: ATORVASTATIN 10 MG TAB PO SCH (09:10)
[2019-04-09] MEDS: LOSARTAN 50 MG TAB PO SCH (09:10)
[2019-04-09] MEDS: HEPARIN SODIUM,PORCINE 5,000 UNIT/ML 1 ML VIAL SQ SCH ×2 (09:11→17:49)
[2019-04-09] MEDS: POTASSIUM CHLORIDE 10 MEQ in WATER FOR INJECTION 1 100ML.BAG IVPB SCH ×2 (09:15→11:27)
[2019-04-09 09:52] VITALS: BMI 25.0
--- NOTE | 2019-04-09 10:31 | P.PN ---
Subjective 79-year-old the is admitted after his recent cholecystectomy followed by partial small bowel obstruction and patient underwent expiratory laparotomy and the lysis of adhesions patient has small amount of drainage from the NG tube since today morning. Patient will be continued on IV fluids patient is otherwise feeling better except for abdominal pain. Patient does have bowel sounds. Did not pass gas did not move his bowels yet. Still has an NG tube in place 04/08/2019 patient still has some NG tube drainage does have good bowel sounds did not pass gas didn't move his bowel. Patient is on peripheral parenteral nutrition hopefully we can get rid of NG tube out today and try to avoid PICC line. 04/09/2019 Significant drainage from the NG tube and patient did pass gas. Patient's NG tube probably can be removed will clamp NG tube for now. Patient is on peripheral parenteral nutrition. Patient is not feeling well as he was unable t o sleep last night Constitutional: Denied any fatigue denied any fever. Cardio vascular: denied any chest pain, palpitations Gastrointestinal denied any nausea vomiting Pulmonary: Denied any shortness of breath cough Neurologic denied any new focal deficits All inpatient medications were reviewed and appropriate changes in these medications as dictated in the interval history and assessment and plan. Objective - Vital Signs Vital signs: Vital Signs Temp 98.0 F 04/09/19 04:00 Pulse 72 04/09/19 04:00 Resp 18 04/09/19 04:00 BP 166/90 04/09/19 04:00 Pulse Ox 95 04/09/19 04:00 Intake & Output 04/08/19 04/09/19 04/09/19 18:59 06:59 18:59 Intake Total 3111 1000 0 Output Total 950 700 Balance 2161 300 0 Weight 72.3 kg 72.3 kg Intake: IV 100 Piperacillin-Tazobactam 3 100 .375 gm In Sodium Chloride 0.9% 100 ml @ 25 mls/hr IVPB Q8HR [facility] Rx# :[id number] Intake, IV Titration 3011 1000 Amount Amino Acid 4.25%-D10w+ 1800 Lytes*E* 1,000 ml @ 100 mls/hr IV .BY DURATION [facility] Rx#:[id number] IV Fluid Continuation 1, 1000 000 ml @ 0 mls/hr IV .STK -[facility] Rx#:[id number] Mvi, Adult No.4 with Vit 1011 K 10 ml Trace (Conc-1Ml/ Dose) 1 ml In Amino Acid 4.25%-D10w+Lytes*E* 1,000 ml @ 100 mls/hr IV .BY DURATION [facility] Rx#: [id number] Potassium Chloride 10 meq 200 In Water For Injection 1 100ml.bag @ 100 mls/hr IVPB Q1H [facility] Rx#: [id number] Oral 0 0 Output: Gastric Drainage 500 Urine 450 700 Other: Voiding Method Urinal Urinal # Voids 1 1 # Bowel Movements 0 - Exam PHYSICAL EXAMINATION: GENERAL: The patient is alert and oriented x3, not in any acute distress. Well developed, well nourished. HEENT: Pupils are round and equally reacting to light. EOMI. No scleral icterus. No conjunctival pallor. Normocephalic, atraumatic. No pharyngeal erythema. No thyromegaly. CARDIOVASCULAR: S1 and S2 present. No murmurs, rubs, or gallops. PULMONARY: Chest is clear to auscultation, no wheezing or crackles. ABDOMEN: Soft, nontender, nondistended, normoactive bowel sounds. No palpable organomegaly. NG tube in place surgical site area clean without any redness MUSCULOSKELETAL: No joint swelling or deformity. EXTREMITIES: No cyanosis, clubbing, or pedal edema. NEUROLOGICAL: Gross neurological examination did not reveal any focal deficits. SKIN: No rashes. - Labs CBC & Chem 7: 04/08/19 06:04 04/09/19 06:06 Labs: Abnormal Lab Results - Last 24 Hours (Table) 04/08/19 04/08/19 04/08/19 Range/Units 11:55 17:03 23:26 Sodium (137-145) mmol/L Chloride (98-107) mmol/L Glucose (74-99) mg/dL POC Glucose (mg/dL) 169 H 176 H 146 H (75-99) mg/dL 04/09/19 04/09/19 Range/Units 06:06 06:19 Sodium 133 L (137-145) mmol/L Chloride 96 L (98-107) mmol/L Glucose 130 H (74-99) mg/dL POC Glucose (mg/dL) 137 H (75-99) mg/dL Assessment and Plan Plan: -Partial small bowel obstruction secondary to adhesions improving at this time p atient is status post exploratory laparotomy. NG tube suction supportive care. IV fluids. Patient is on TPN and antibiotics as per general surgery -Type 2 diabetes mellitus sliding scale insulin -Hyponatremia secondary to parental nutrition, electrolytes in the PPN fluid need to be readjusted Recent cholecystectomy -Hyperlipidemia Hypertension : Patient blood pressure is elevated as he cannot tolerate any oral medication patient is on clonidine patch at this time. - coronary artery disease with stent in the past - benign prostatic hypertrophic -leukocytosis secondary to bowel obstruction DVT prophylaxis with subcutaneous heparin
--- NOTE | 2019-04-09 10:43 | P.PN ---
Subjective Progress Note Date: 04/09/19 CHIEF COMPLAINT: Abdominal pain HISTORY OF PRESENT ILLNESS: Patient is status post laparoscopic cholecystectomy performed on 04/04/2019. He is also status post exploratory laparotomy with lysis of adhesions secondary to small bowel obstruction and internal hernia performed on 04/06/2019. Patient reports his pain is currently 4/10. He received Dilaudid overnight which made him confused and he is requesting something milder for pain relief. NG tube to low intermittent suction with small amount of bilious drainage. Patient is passing flatus. He denies bowel movement. PHYSICAL EXAM: VITAL SIGNS: Reviewed. GENERAL: Well-developed in no acute distress. HEENT: No sclera icterus. Extraocular movements grossly intact. Moist buccal mucosa. Head is atraumatic, normocephalic. ABDOMEN: Soft. Nondistended. Appropriate surgical tenderness. Dressing clean dry and intact without drainage. NEUROLOGIC: Alert and oriented. Cranial nerves II through XII grossly intact. ASSESSMENT: 1. Cholelithiasis, acute cholecystitis 2. Sepsis, present on admission, patient presented with fever, tachycardia, and leukocytosis 2. History of pancreatic cancer, approximately 3 years ago, with surgical resection and chemotherapy 3. Coronary artery disease with previous stent placement 4. Small bowel obstruction/internal hernia PLAN: -Discontinue NG tube -Begin clear liquid diet -Incentive spirometer -Activity as tolerated -Add IV Tylenol. Add [place] PRN -Continue PPN Nurse practitioner note has been reviewed by physician. Signing provider agrees with the documented findings, assessment, and plan of care. Objective - Vital Signs Vital signs: Vital Signs Temp 98.0 F 04/09/19 04:00 Pulse 72 04/09/19 04:00 Resp 18 04/09/19 04:00 BP 166/90 04/09/19 04:00 Pulse Ox 95 04/09/19 04:00 Intake & Output 04/08/19 04/09/19 04/09/19 18:59 06:59 18:59 Intake Total 3111 1000 0 Output Total 950 700 Balance 2161 300 0 Weight 72.3 kg 72.3 kg Intake: IV 100 Piperacillin-Tazobactam 3 100 .375 gm In Sodium Chloride 0.9% 100 ml @ 25 mls/hr IVPB Q8HR [facility] Rx# :[id number] Intake, IV Titration 3011 1000 Amount Amino Acid 4.25%-D10w+ 1800 Lytes*E* 1,000 ml @ 100 mls/hr IV .BY DURATION [facility] Rx#:[id number] IV Fluid Continuation 1, 1000 000 ml @ 0 mls/hr IV .STK -[facility] Rx#:[id number] Mvi, Adult No.4 with Vit 1011 K 10 ml Trace (Conc-1Ml/ Dose) 1 ml In Amino Acid 4.25%-D10w+Lytes*E* 1,000 ml @ 100 mls/hr IV .BY DURATION [facility] Rx#: [id number] Potassium Chloride 10 meq 200 In Water For Injection 1 100ml.bag @ 100 mls/hr IVPB Q1H [facility] Rx#: [id number] Oral 0 0 Output: Gastric Drainage 500 Urine 450 700 Other: Voiding Method Urinal Urinal # Voids 1 1 # Bowel Movements 0 - Labs CBC & Chem 7: 04/08/19 06:04 04/09/19 06:06 Labs: Abnormal Lab Results - Last 24 Hours (Table) 04/08/19 04/08/19 04/08/19 Range/Units 11:55 17:03 23:26 Sodium (137-145) mmol/L Chloride (98-107) mmol/L Glucose (74-99) mg/dL POC Glucose (mg/dL) 169 H 176 H 146 H (75-99) mg/dL 04/09/19 04/09/19 Range/Units 06:06 06:19 Sodium 133 L (137-145) mmol/L Chloride 96 L (98-107) mmol/L Glucose 130 H (74-99) mg/dL POC Glucose (mg/dL) 137 H (75-99) mg/dL
[2019-04-09 12:07] LABS: Glucose,Whole Blood 164 mg/dL (75-99)
[2019-04-09] MEDS: ACETAMINOPHEN IV (For NPO) 1,000 MG in EMPTY BAG 1 BAG IVPB SCH ×2 (12:49→18:02)
[2019-04-09] MEDS: ENALAPRILAT 1.25 MG/ML 1 ML VIAL IVP PRN (12:56)
[2019-04-09 17:42] LABS: Glucose,Whole Blood 141 mg/dL (75-99)
[2019-04-09] MEDS: FAT EMULSION 20% 250 ML in EMPTY BAG 1 BAG IV SCH (18:05)
[2019-04-09] MEDS: TAMSULOSIN 0.4 MG CAP.ER.24H PO SCH (21:31)
[2019-04-09] MEDS: ASPIRIN 81 MG PO SCH (21:32)
[2019-04-09 23:57] LABS: Glucose,Whole Blood 159 mg/dL (75-99)
[2019-04-10] MEDS: ACETAMINOPHEN IV (For NPO) 1,000 MG in EMPTY BAG 1 BAG IVPB SCH ×4 (00:04→12:40)
[2019-04-10] MEDS: HEPARIN SODIUM,PORCINE 5,000 UNIT/ML 1 ML VIAL SQ SCH ×3 (00:06→17:15)
[2019-04-10] MEDS: PIPERACILLIN-TAZOBACTAM 3.375 GM in SODIUM CHLORIDE 0.9% 100 ML IVPB SCH ×3 (00:06→17:16)
[2019-04-10] MEDS: INSULIN ASPART (NovoLOG) 100 UNIT/ML VIAL SQ SCH ×4 (00:07→17:15)
[2019-04-10] MEDS: 1: MVI, ADULT NO.4 WITH VIT K 10 ML, TRACE (CONC-1ML/DOSE) 1 ML in AMINO ACID 4.25%-D10W IV SCH ×6 (03:53→17:13)
[2019-04-10 06:14] LABS: Glucose,Whole Blood 152 mg/dL (75-99)
[2019-04-10] MEDS: metFORMIN 500 MG TAB PO SCH ×2 (06:25→17:15)
[2019-04-10] MEDS: PANTOPRAZOLE 40 MG TABLET PO SCH (06:25)
[2019-04-10 06:30] LABS: African American GFR (CKD) >90 (>60 ml/min/1.73 sqM); Anion Gap 7 mmol/L; Blood Urea Nitrogen 19 mg/dL (9-20); Calcium 8.3 mg/dL (8.4-10.2); Carbon Dioxide 27 mmol/L (22-30); Chloride 97 mmol/L (98-107); Glucose 142 mg/dL (74-99); Magnesium 1.8 mg/dL (1.6-2.3); Phosphorus 4.2 mg/dL (2.5-4.5); Potassium 3.9 mmol/L (3.5-5.1); Sodium 131 mmol/L (137-145)
[2019-04-10] MEDS: LACTATED RINGERS 1,000 ML IV SCH ×2 (08:46→22:10)
[2019-04-10] MEDS: FINASTERIDE 5 MG TAB PO SCH (09:18)
[2019-04-10] MEDS: LOSARTAN 50 MG TAB PO SCH (09:19)
[2019-04-10] MEDS: METOPROLOL TARTRATE 50 MG TAB PO SCH ×2 (09:19→20:31)
[2019-04-10] MEDS: ATORVASTATIN 10 MG TAB PO SCH (09:19)
[2019-04-10 11:49] LABS: Glucose,Whole Blood 154 mg/dL (75-99)
[2019-04-10] MEDS: MAGNESIUM SULFATE-D5W PMX 1 GM in DEXTROSE/WATER 1 100ML.BAG IVPB SCH ×2 (12:41→17:06)
--- NOTE | 2019-04-10 13:29 | P.PN ---
Subjective 79-year-old the is admitted after his recent cholecystectomy followed by partial small bowel obstruction and patient underwent expiratory laparotomy and the lysis of adhesions patient has small amount of drainage from the NG tube since today morning. Patient will be continued on IV fluids patient is otherwise feeling better except for abdominal pain. Patient does have bowel sounds. Did not pass gas did not move his bowels yet. Still has an NG tube in place 04/08/2019 patient still has some NG tube drainage does have good bowel sounds did not pass gas didn't move his bowel. Patient is on peripheral parenteral nutrition hopefully we can get rid of NG tube out today and try to avoid PICC line. 04/09/2019 Significant drainage from the NG tube and patient did pass gas. Patient's NG tube probably can be removed will clamp NG tube for now. Patient is on peripheral parenteral nutrition. Patient is not feeling well as he was unable t o sleep last night 04/09/2019 Patient's serum sodium continued to go down because of the TPN which is being disc in your patient's NG tube is out patient was started on full liquid diet. Constitutional: Denied any fatigue denied any fever. Cardio vascular: denied any chest pain, palpitations Gastrointestinal denied any nausea vomiting Pulmonary: Denied any shortness of breath cough Neurologic denied any new focal deficits All inpatient medications were reviewed and appropriate changes in these medications as dictated in the interval history and assessment and plan. Objective - Vital Signs Vital signs: Vital Signs Temp 97 F L 04/10/19 08:00 Pulse 77 04/10/19 08:00 Resp 16 04/10/19 11:52 BP 169/84 04/10/19 08:00 Pulse Ox 96 04/10/19 08:00 Intake & Output 04/09/19 04/10/19 04/10/19 18:59 06:59 18:59 Intake Total 1011 1011 Output Total 175 400 1 Balance 836 611 -1 Weight 72.3 kg 72 kg Intake: Intake, IV Titration 1011 1011 Amount Mvi, Adult No.4 with Vit 1011 1011 K 10 ml Trace (Conc-1Ml/ Dose) 1 ml In Amino Acid 4.25%-D10w+Lytes*E* 1,000 ml @ 100 mls/hr IV .BY DURATION [facility] Rx#: [id number] Oral 0 Output: Urine 175 400 Stool 1 Other: Voiding Method Urinal Urinal Urinal # Voids 1 1 # Bowel Movements 1 - Exam PHYSICAL EXAMINATION: GENERAL: The patient is alert and oriented x3, not in any acute distress. Well developed, well nourished. HEENT: Pupils are round and equally reacting to light. EOMI. No scleral icterus. No conjunctival pallor. Normocephalic, atraumatic. No pharyngeal erythema. No thyromegaly. CARDIOVASCULAR: S1 and S2 present. No murmurs, rubs, or gallops. PULMONARY: Chest is clear to auscultation, no wheezing or crackles. ABDOMEN: Soft, nontender, nondistended, normoactive bowel sounds. No palpable organomegaly. Patient's NG tube was removed. MUSCULOSKELETAL: No joint swelling or deformity. EXTREMITIES: No cyanosis, clubbing, or pedal edema. NEUROLOGICAL: Gross neurological examination did not reveal any focal deficits. SKIN: No rashes. - Labs CBC & Chem 7: 04/08/19 06:04 04/10/19 05:52 Labs: Abnormal Lab Results - Last 24 Hours (Table) 04/09/19 04/09/19 04/10/19 Range/Units 17:21 23:56 05:52 Sodium 131 L (137-145) mmol/L Chloride 97 L (98-107) mmol/L Creatinine 0.63 L (0.66-1.25) mg/dL Glucose 142 H (74-99) mg/dL POC Glucose (mg/dL) 141 H 159 H (75-99) mg/dL Calcium 8.3 L (8.4-10.2) mg/dL 04/10/19 04/10/19 Range/Units 06:12 11:29 Sodium (137-145) mmol/L Chloride (98-107) mmol/L Creatinine (0.66-1.25) mg/dL Glucose (74-99) mg/dL POC Glucose (mg/dL) 152 H 154 H (75-99) mg/dL Calcium (8.4-10.2) mg/dL Assessment and Plan Plan: -Partial small bowel obstruction secondary to adhesions improving at this time patient is status post exploratory laparotomy. Due to his being removed TPN and is being discontinued and patient will be continued on lactated Ringer's in sodium is expected to improve -Type 2 diabetes mellitus sliding scale insulin -Hyponatremia secondary to parental nutrition, TPN is being discontinued at this time and the serum sodium is expected to improve Recent cholecystectomy -Hyperlipidemia Hypertension : Patient blood pressure is elevated as he cannot tolerate any oral medication patient is on clonidine patch at this time. - coronary artery disease with stent in the past - benign prostatic hypertrophic -leukocytosis secondary to bowel obstruction DVT prophylaxis with subcutaneous heparin
--- NOTE | 2019-04-10 14:17 | P.PN ---
Subjective Progress Note Date: 04/10/19 CHIEF COMPLAINT: Abdominal pain HISTORY OF PRESENT ILLNESS: Patient is status post laparoscopic cholecystectomy performed on 04/04/2019. He is also status post exploratory laparotomy with lysis of adhesions secondary to small bowel obstruction and internal hernia performed on 04/06/2019. Patient examined at the bedside. Patient reports his pain is tolerable. NG tube was ordered to be discontinued yesterday but had not been removed. Patient has been tolerating clear liquid diet. He is passing flatus and having bowel movements. PHYSICAL EXAM: VITAL SIGNS: Reviewed. GENERAL: Well-developed in no acute distress. HEENT: No sclera icterus. Extraocular movements grossly intact. Moist buccal mucosa. Head is atraumatic, normocephalic. ABDOMEN: Soft. Nondistended. Appropriate surgical tenderness. Dressing clean dry and intact without drainage. NEUROLOGIC: Alert and oriented. Cranial nerves II through XII grossly intact. ASSESSMENT: 1. Cholelithiasis, acute cholecystitis 2. Sepsis, present on admission, patient presented with fever, tachycardia, and leukocytosis 2. History of pancreatic cancer, approximately 3 years ago, with surgical resection and chemotherapy 3. Coronary artery disease with previous stent placement 4. Small bowel obstruction/internal hernia PLAN: -NG ordered to be discontinued yesterday but had not been DC. Remove NG tube today -Advance diet to full liquids -Wean off TPN today -Pain control -Increase activity as tolerated -Incentive spirometer 10 times hour while awake -Possible discharge home tomorrow if patient remains stable Nurse practitioner note has been reviewed by physician. Signing provider agrees with the documented findings, assessment, and plan of care. Objective - Vital Signs Vital signs: Vital Signs Temp 97 F L 04/10/19 08:00 Pulse 77 04/10/19 08:00 Resp 16 04/10/19 11:52 BP 169/84 04/10/19 08:00 Pulse Ox 96 04/10/19 08:00 Intake & Output 04/09/19 04/10/19 04/10/19 18:59 06:59 18:59 Intake Total 1011 1011 Output Total 175 400 1 Balance 836 611 -1 Weight 72.3 kg 72 kg Intake: Intake, IV Titration 1011 1011 Amount Mvi, Adult No.4 with Vit 1011 1011 K 10 ml Trace (Conc-1Ml/ Dose) 1 ml In Amino Acid 4.25%-D10w+Lytes*E* 1,000 ml @ 100 mls/hr IV .BY DURATION [facility] Rx#: [id number] Oral 0 Output: Urine 175 400 Stool 1 Other: Voiding Method Urinal Urinal Urinal # Voids 1 1 # Bowel Movements 1 - Labs CBC & Chem 7: 04/08/19 06:04 04/10/19 05:52 Labs: Abnormal Lab Results - Last 24 Hours (Table) 04/09/19 04/09/19 04/10/19 Range/Units 17:21 23:56 05:52 Sodium 131 L (137-145) mmol/L Chloride 97 L (98-107) mmol/L Creatinine 0.63 L (0.66-1.25) mg/dL Glucose 142 H (74-99) mg/dL POC Glucose (mg/dL) 141 H 159 H (75-99) mg/dL Calcium 8.3 L (8.4-10.2) mg/dL 04/10/19 04/10/19 Range/Units 06:12 11:29 Sodium (137-145) mmol/L Chloride (98-107) mmol/L Creatinine (0.66-1.25) mg/dL Glucose (74-99) mg/dL POC Glucose (mg/dL) 152 H 154 H (75-99) mg/dL Calcium (8.4-10.2) mg/dL
[2019-04-10] MEDS: FAT EMULSION 20% 250 ML in EMPTY BAG 1 BAG IV SCH (17:11)
[2019-04-10] MEDS: 1: MVI, ADULT NO.4 WITH VIT K 10 ML, TRACE (CONC-1ML/DOSE) 1 ML, SODIUM CHLORIDE 2.5MEQ/ IV SCH ×4 (17:12)
[2019-04-10 17:33] LABS: Glucose,Whole Blood 101 mg/dL (75-99)
[2019-04-10 20:12] LABS: Glucose,Whole Blood 97 mg/dL (75-99)
[2019-04-10] MEDS: TAMSULOSIN 0.4 MG CAP.ER.24H PO SCH (20:32)
[2019-04-10] MEDS: ASPIRIN 81 MG PO SCH (20:32)
[2019-04-10 23:55] LABS: Glucose,Whole Blood 92 mg/dL (75-99)
[2019-04-11] MEDS: INSULIN ASPART (NovoLOG) 100 UNIT/ML VIAL SQ SCH ×2 (00:05→06:12)
[2019-04-11] MEDS: PIPERACILLIN-TAZOBACTAM 3.375 GM in SODIUM CHLORIDE 0.9% 100 ML IVPB SCH ×2 (00:09→08:07)
[2019-04-11] MEDS: HEPARIN SODIUM,PORCINE 5,000 UNIT/ML 1 ML VIAL SQ SCH ×3 (00:09→14:44)
[2019-04-11] MEDS: HYDROcodone/APAP 5-325MG 1 EACH TAB PO PRN ×2 (00:32→08:06)
[2019-04-11 04:44] VITALS: RESP 17
[2019-04-11 06:09] LABS: Glucose,Whole Blood 93 mg/dL (75-99)
[2019-04-11] MEDS: 1: MVI, ADULT NO.4 WITH VIT K 10 ML, TRACE (CONC-1ML/DOSE) 1 ML, SODIUM CHLORIDE 2.5MEQ/ IV SCH ×4 (06:12)
[2019-04-11 06:31] LABS: African American GFR (CKD) >90 (>60 ml/min/1.73 sqM); Anion Gap 6 mmol/L; Blood Urea Nitrogen 15 mg/dL (9-20); Calcium 8.4 mg/dL (8.4-10.2); Carbon Dioxide 23 mmol/L (22-30); Chloride 101 mmol/L (98-107); Glucose 94 mg/dL (74-99); Magnesium 1.9 mg/dL (1.6-2.3); Potassium 4.2 mmol/L (3.5-5.1); Sodium 130 mmol/L (137-145)
[2019-04-11] MEDS: PANTOPRAZOLE 40 MG TABLET PO SCH (06:31)
[2019-04-11] MEDS: metFORMIN 500 MG TAB PO SCH ×2 (06:32→14:44)
[2019-04-11] MEDS: METOPROLOL TARTRATE 50 MG TAB PO SCH (08:05)
[2019-04-11] MEDS: ATORVASTATIN 10 MG TAB PO SCH (08:05)
[2019-04-11] MEDS: FINASTERIDE 5 MG TAB PO SCH (08:05)
[2019-04-11] MEDS: LOSARTAN 50 MG TAB PO SCH (08:06)
[2019-04-11 08:18] VITALS: PULSE 85
--- NOTE | 2019-04-11 11:39 | P.DS ---
Providers Date of admission: 04/05/19 10:49 Expected date of discharge: 04/11/19 Attending physician: Berry Blas Consults: 04/03/19 15:06 Consult Physician Urgent Consulting Provider: Robert Rodgers Consult Reason/Comments: medical Management Do you want consulting provider notified?: Yes Primary care physician: [facility] Hospital Course: 79-year-old male who presents to emergency room with chief complaint of abdominal pain. Patient underwent laparoscopic cholecystectomy on 04/04/2019. He is also status post exploratory laparotomy with lysis of adhesions secondary to small bowel obstruction and internal hernia performed on 04/06/2019. Patient is doing well postoperatively. NG tube has been discontinued and patient is tolerating diet. He is passing flatus and having bowel movements. Pain is controlled on oral medications. Vital signs have been stable. He is stable for discharge home today. Please see EMR for further hospital course details. Discharge Diagnosis: 1. Cholelithiasis, acute cholecystitis 2. Sepsis, present on admission, patient presented with fever, tachycardia, and leukocytosis 2. History of pancreatic cancer, approximately 3 years ago, with surgical resection and chemotherapy 3. Coronary artery disease with previous stent placement 4. Small bowel obstruction/internal hernia Nurse practitioner note has been reviewed by physician. Signing provider agrees with the documented findings, assessment, and plan of care. Patient Condition at Discharge: Stable Plan - Discharge Summary Discharge Rx Participant: No New Discharge Prescriptions: No Action metFORMIN HCL [Glucophage] 500 mg PO BID Metoprolol Succinate [Toprol XL] 25 mg PO DAILY Losartan Potassium 50 mg PO DAILY Clopidogrel [Plavix] 75 mg PO DAILY Aspirin EC [Ecotrin Low Dose] 81 mg PO HS Tamsulosin [Flomax] 0.4 mg PO HS Lovastatin [Mevacor] 20 mg PO DAILY Dutasteride 0.5 mg PO DAILY Omeprazole 40 mg PO DAILY Discharge Medication List Aspirin EC [Ecotrin Low Dose] 81 mg PO HS 04/03/19 [History] Clopidogrel [Plavix] 75 mg PO DAILY 04/03/19 [History] Dutasteride 0.5 mg PO DAILY 04/03/19 [History] Losartan Potassium 50 mg PO DAILY 04/03/19 [History] Lovastatin [Mevacor] 20 mg PO DAILY 04/03/19 [History] Metoprolol Succinate [Toprol XL] 25 mg PO DAILY 04/03/19 [History] Omeprazole 40 mg PO DAILY 04/03/19 [History] Tamsulosin [Flomax] 0.4 mg PO HS 04/03/19 [History] metFORMIN HCL [Glucophage] 500 mg PO BID 04/03/19 [History] Follow up Appointment(s)/Referral(s): Grabiel Sullivan MD [Primary Care Provider] - 1-2 days
[2019-04-11 11:53] VITALS: BP 98/50; TEMP 97.1
--- NOTE | 2019-04-11 21:18 | P.PN ---
Progress Note - Text Progress Note Date: 04/11/19 - Chief Complaint Abdominal pain Interval history: This is a pleasant 79-year-old patient of Dr. Sullivan. Chronic stable medical conditions include coronary artery disease with 5 stents. 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 Yesterday morning patient started increasing right upper quadrant pain became worse. Sharp localized to the upper abdomen. Associated nausea vomiting. Patient started having episodes of fever and sweating. Decided to present to ER. Patient started on IV antibiotics. underwent a laparoscopic cholecystectomy with Dr. Blas.. Next day patient abdomen became distended. With vomiting. Patient found to have small bowel obstruction. NG tube was placed. Taking back to the OR. Lysis of adhesions was carried out. Patient subsequently has done well. Today-sitting up in bed. Did tolerate her regular meals. No Abdominal pain. No nausea vomiting. at the bedside. Care was discussed Review of systems: Was done for constitutional, cardiovascular, GI, pulmonary. relevant finding as above Current medications reviewed in today's electronic records Physical examination: VITAL SIGNS: 97.1, 57, 16, 98-50, 97% on room air GENERAL: Sitting up, comfortable EYES: Pupils equal. Conjunctiva normal. HEENT: External appearance of nose and ears normal, oral cavity dry, NG tube. 2 suction. NECK: JVD not raised; masses not palpable. HEART: First and second heart sounds are normal; no edema. LUNGS: Respiratory rate normal; clear to auscultation. ABDOMEN: Soft, minimal tenderness, , no guarding or rigidity, liver spleen not palpable, no masses palpable. PSYCH: Alert and oriented x3; mood and affect normal. INVESTIGATIONS, reviewed in the clinical context: Sodium 1:30 potassium 4.2 creatinine 0.74 Previous testing White count 13.9 hemoglobin 14 pressure 4.5 creatinine 0.83 Total bilirubin 1.3 AST/ALT normal amylase lipase is normal Abdominal ultrasound-cholelithiasis, common bile duct bilateral crepitation Multiple hepatic cysts Computed tomography scan abdomen-acute small bowel obstruction Assessment: -Choledocholithiasis with acute cholecystitis causing sepsis, POA, status post laparoscopic cholecystectomy -Acute postop small bowel obstruction. Status post lysis of adhesion. -Multiple hepatic cysts -Hyperlipidemia -Hypertension -Coronary artery disease with stent -BPH Plan: Patient doing well. Up and about. If discharged followed his PCP. Thank you Dr. Blas
--- NOTE | 2019-04-12 13:19 | CDI ---
Documentation Clarification Form Date: 04/12/19 From: Liana Torres Phone: If you have a question about this query, please contact Alem Payton, Skin Piler at [phone] between 8am and 5pm. Admit Date: 04/05/19 Discharge Date: 04/11/19 Patient Name: Liban Petersen Visit Number: [id number] ATTENTION: The Clinical Documentation Specialists (CDI) and [facility] Coding Staff appreciate your assistance in clarifying documentation. Please respond to the clarification below the line at the bottom and electronically sign. The CDI & [facility] Coding staff will review the response and follow-up if needed. Please note: Queries are made part of the Legal Health Record. If you have any questions, please contact the author of this message via ITS. Dear Dr. Robert Rodgers, Atrial Fibrillation is documented in the ED Note, H&P and your consult. History/Risk Factors: DM type 2, BPH, ASHD s/p stents, Clinical Indicators: Sepsis w choledocholithiasis & acute cholecystitis, small bowel obstruction due to adhesions and internal hernia EKG/telemetry: normal sinus rhythm, left anterior fascicular block, old [place] Treatment: ASA, Plavix In your professional opinion, can you please clarify the type of Atrial Fibrillation, if known? Chronic/Permanent Paroxysmal Persistent History of atrial fibrillation Other, please specify Unable to determine paroxysmal atrial fibrillation MTDD
== END 2019-04-11 15:35 | disposition home or self-care (01) | DRG 854 ==
LOC: EC 11:39 → 3SCARD 15:03 → OBSVTOIN 04-05 10:49 → 3SCARD 04-08 17:43
PROVIDERS: ADMIT Surgery; ATTEND Surgery
PROC: 0FT44ZZ Resection of Gallbladder, Percutaneous Endoscopic Approach (ICD-10-PCS; principal; 2019-04-04 10:25)
PROC: 0D9670Z Drainage of Stomach with Drainage Device, Via Natural or Artificial Opening (ICD-10-PCS; 2019-04-05)
PROC: 0DQV0ZZ Repair Mesentery, Open Approach (ICD-10-PCS; 2019-04-06)
PROC: 0DN80ZZ Release Small Intestine, Open Approach (ICD-10-PCS; 2019-04-06)
PROC: 3E0336Z Introduction of Nutritional Substance into Peripheral Vein, Percutaneous Approach (ICD-10-PCS; 2019-04-06)
DX: A41.9 Sepsis, unspecified organism (principal); K46.0 Unspecified abdominal hernia with obstruction, without gangrene; K80.62 Calculus of gallbladder and bile duct with acute cholecystitis without obstruction; K56.51 Intestinal adhesions [bands], with partial obstruction; E44.1 Mild protein-calorie malnutrition; E87.1 Hypo-osmolality and hyponatremia; I48.0 Paroxysmal atrial fibrillation; E11.9 Type 2 diabetes mellitus without complications; K76.89 Other specified diseases of liver; N40.0 Benign prostatic hyperplasia without lower urinary tract symptoms; E78.5 Hyperlipidemia, unspecified; I10 Essential (primary) hypertension; I25.10 Atherosclerotic heart disease of native coronary artery without angina pectoris; I25.2 Old myocardial infarction; Z79.84 Long term (current) use of oral hypoglycemic drugs; Z79.02 Long term (current) use of antithrombotics/antiplatelets; Z79.82 Long term (current) use of aspirin; Z79.899 Other long term (current) drug therapy; Z98.890 Other specified postprocedural states; Z85.07 Personal history of malignant neoplasm of pancreas; Z92.21 Personal history of antineoplastic chemotherapy; Z95.5 Presence of coronary angioplasty implant and graft; Z85.46 Personal history of malignant neoplasm of prostate; Z90.79 Acquired absence of other genital organ(s); Z90.411 Acquired partial absence of pancreas
CPT/HCPCS: 36415; 71045; 74018; 74176; 76705; 80048; 80053; 81001; 82150; 82330; 83605; 83690; 83735; 84100; 84478; 84484; 85025; 85027; 88304; 93005; 94760; 96361; 96365; 96366; 96375; 99285

== ENCOUNTER → 2019-04-16 | Outpatient (CLI) | payer MEDICARE ==
--- NOTE | 2019-04-16 13:41 | XR ---
Bilateral feet HISTORY: Bilateral foot pain 3 views of each foot are symmetric. There is marked degenerative change at the first metatarsophalangeal joints. Mild hallux valgus defor mities are present. Bone mineralization is maintained. Some subluxation is present at the first metat arsophalangeal joint of the right foot. No fracture or dislocation. IMPRESSION: Findings of the first digits as described.
== END | disposition home or self-care (01) ==
LOC: RADXRMAIN 10:01
PROVIDERS: ATTEND Podiatrist Foot Surgery
DX: M19.071 Primary osteoarthritis, right ankle and foot (principal); M19.072 Primary osteoarthritis, left ankle and foot

== ENCOUNTER → 2019-04-27 | Outpatient (CLI) | payer MEDICARE ==
--- NOTE | 2019-04-27 14:04 | US ---
EXAMINATION TYPE: US thyroid st tissue head/neck DATE OF EXAM: 04/27/2019 COMPARISON: Thyroid ultrasound February 28, 2017. CLINICAL HISTORY: E04.1 NONTOXIC SINGLE THYROID NODULE. Follow up thyroid nodules GLAND SIZE: Right Lobe: 4.3 x 1.6 x 1.7 cm Overall Parenchyma: heterogenous Left Lobe: 5.0 x 2.0 x 1.5 cm Overall Parenchyma: heterogeneous Isthmus Thickness: 0.5 cm NODULES RIGHT: # of nodules measured on right: 0 LEFT: # of nodules measured on left: 2 1. 1.0 X 0.7 x 0.7 cm mixed nodule at the mid pole with well-defined margins; . This nodule is wid er than tall and shows no intranodular vascularity. Prior size: 0.7 x 0.8 x 0.7 cm 2. 0.7 X 0.6 x 0.6 cm mixed nodule at the upper pole with well-defined margins; . This nodule is w ider than tall and shows intranodular vascularity. Prior size: no prior measurements ISTHMUS: # of nodules measured in the isthmus: 0 Bilateral neck scanned, no evidence of abnormal lymphadenopathy. Multiple sub-centemeter nodules noted bilateral thyroid Fairly homogeneous normal-sized thyroid with scattered small nodules redemonstrated. IMPRESSION: Persistent multinodular thyroid without new greater than 1.0 cm nodules
== END ==
LOC: RADUSWWP 12:51
PROVIDERS: ATTEND Family Medicine
DX: E04.2 Nontoxic multinodular goiter (principal)
CPT/HCPCS: 76536

== ENCOUNTER → 2019-12-17 | Outpatient (CLI) | payer MEDICARE | END | disposition home or self-care (01) | LOC: LABWHC1 09:52 | PROVIDERS: ATTEND Urology | DX: N40.0 Benign prostatic hyperplasia without lower urinary tract symptoms (principal) | CPT/HCPCS: 36415; 84153 ==

== ENCOUNTER → 2020-02-18 | Outpatient (CLI) | payer MEDICARE ==
[2020-02-18 11:15] LABS: African American GFR (CKD) >90 (>60 ml/min/1.73 sqM); Blood Urea Nitrogen 16 mg/dL (9-20); Non-African American GFR(CKD) 78 (>60 ml/min/1.73 sqM)
--- NOTE | 2020-02-18 13:47 | CT ---
EXAMINATION TYPE: CT abdomen pelvis w con DATE OF EXAM: 02/18/2020 COMPARISON: Prior CT 04/05/2019 HISTORY: Pancreatic cancer CT DLP: 498.5 mGycm Automated exposure control for dose reduction was used. TECHNIQUE: Helical acquisition of images from the lung bases through the pelvis have been completed. CONTRAST: Performed with Oral Contrast and with IV Contrast, patient injected with 100 mL of Isovue 300. FINDINGS: Pneumoperitoneum has resolved. LUNG BASES: No significant abnormality is appreciated. AORTA: No significant abnormality is appreciated. LIVER/GB: No significant interval change is appreciated, multiple hepatic low dense foci are again no fernanda, patient is post cholecystectomy. PANCREAS: No significant interval change is seen, distal pancreas has been resected. SPLEEN: Not present ADRENALS: No significant abnormality is seen. KIDNEYS: No significant abnormality is seen. REPRODUCTIVE ORGANS: Not seen BOWEL: No significant interval change is seen diverticular change in the sigmoid colon. FREE AIR: No Free Air visible. ASCITES: None visible. PELVIC ADENOPATHY: None visualized. RETROPERITONEAL ADENOPATHY: No Retroperitoneal Adenopathy visible. URINARY BLADDER: No significant abnormality is seen. OSSEOUS STRUCTURES: Postop changes in the lumbar spine seen. IMPRESSION: NO EVIDENT RECURRENCE.
== END | disposition home or self-care (01) ==
LOC: RADCTMAIN 10:23
PROVIDERS: ATTEND Internal Medicine Hematology & Oncology
DX: C25.2 Malignant neoplasm of tail of pancreas (principal); Z88.8 Allergy status to other drugs, medicaments and biological substances
CPT/HCPCS: 82565; 84520; 74177; 36415; Q9967

== ENCOUNTER → 2020-08-05 | Outpatient (CLI) | payer MEDICARE ==
--- NOTE | 2020-08-05 12:14 | CT ---
EXAMINATION TYPE: CT abdomen pelvis w con DATE OF EXAM: 08/05/2020 COMPARISON: Prior CT 02/18/2020 HISTORY: Pancreatic cancer CT DLP: 824 mGycm Automated exposure control for dose reduction was used. TECHNIQUE: Helical acquisition of images from the lung bases through the pelvis have been completed. CONTRAST: Performed without Oral Contrast and with IV Contrast, patient injected with 100 ml mL of Isovue 300. FINDINGS: There is no significant interval change. LUNG BASES: No significant abnormality is appreciated. AORTA: Abdominal aorta is ectatic at 3 cm. LIVER/GB: No significant interval change is appreciated, gallbladder is absent, multiple hepatic cyst s are again seen. PANCREAS: No significant interval change is seen, distal pancreatectomy change. SPLEEN: Absent. ADRENALS: No significant abnormality is seen. KIDNEYS: No significant abnormality is seen. REPRODUCTIVE ORGANS: Calcification is present associated with the prostate which shows a similar appe arance to prior BOWEL: No significant interval change is seen. Diverticular change seen in the sigmoid colon FREE AIR: No Free Air visible. ASCITES: None visible. PELVIC ADENOPATHY: None visualized. RETROPERITONEAL ADENOPATHY: No Retroperitoneal Adenopathy visible. URINARY BLADDER: Thickened wall could be related to bladder outlet obstruction. OSSEOUS STRUCTURES: No significant table change is seen. Postop change noted to the lumbar spine, th ere is degenerative disc change, patient is post right hip arthroplasty, there is streak artifact IMPRESSION: STABLE EXAM, NO EVIDENT RECURRENCE
== END ==
LOC: RADCTMAIN 09:20
PROVIDERS: ATTEND Internal Medicine Hematology & Oncology
DX: C25.9 Malignant neoplasm of pancreas, unspecified (principal)
CPT/HCPCS: 82565; 84520; 74177; Q9967

== ENCOUNTER 2020-09-28 15:58 | Observation (INO) | payer MEDICARE ==
[2020-09-28 16:19] LABS: Glucose,Whole Blood 92 mg/dL (75-99)
[2020-09-28] MEDS ORDERED: SODIUM CHLORIDE 0.9% 500 ML 500 ML IV ONE (16:25)
[2020-09-28] MEDS ORDERED: MORPHINE SULFATE 2 MG/ML SYRINGE IVP ONE ×2 (16:38)
[2020-09-28] MEDS ORDERED: DIPH,PERTUS(ACELL)TETVAC-LF 0.5 ML VIAL IM ONE (16:47)
--- NOTE | 2020-09-28 16:47 | ED ---
Fall HPI - General Chief Complaint: Fall Stated Complaint: fall approx 6' from ladder Time Seen by Provider: 09/28/20 16:10 Source: patient, family (), RN notes reviewed Mode of arrival: ambulatory Limitations: no limitations - History of Present Illness Initial Comments: 80-year-old white male presents to the emergency room after falling off a six- foot ladder while in the garage, trying to get wood down from the loft. Patient alert and oriented 4, complaining of left ankle pain. Patient denies hitting his head, no loss of consciousness. at bedside states she heard the fall went out to the garage and found him on the ground. patient states he fell landed on his left ankle. Denies loss of consciousness. Patient also sustained an abrasion to his left forearm, and an abrasion to his right flank. Patient states has no other pain at this time. At the scene was unable to bear any weight on the left ankle. Deformity noted to the left ankle, pedal pulses present, capillary refill less than 2 seconds. 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 Fall Witnessed: no Place Fall Occurred: home Loss of Consciousness: none Prolonged Down Time?: no Symptoms Prior to Fall: none Location - Extremities: Left: Ankle Severity: severe Severity scale (1-10): 10 Quality: aching Context: other (on ladder and fell trying to get wood from loft) Associated Symptoms: unable to walk (can not bear weight on left leg/ankle) - Related Data Home Medications Medication Instructions Recorded Confirmed Aspirin EC [Ecotrin Low Dose] 81 mg PO HS 04/03/19 04/03/19 Clopidogrel [Plavix] 75 mg PO DAILY 04/03/19 04/03/19 Dutasteride 0.5 mg PO DAILY 04/03/19 04/03/19 Losartan Potassium 50 mg PO DAILY 04/03/19 04/03/19 Lovastatin [Mevacor] 20 mg PO DAILY 04/03/19 04/03/19 Metoprolol Succinate [Toprol XL] 25 mg PO DAILY 04/03/19 04/03/19 Omeprazole 40 mg PO DAILY 04/03/19 04/03/19 Tamsulosin [Flomax] 0.4 mg PO HS 04/03/19 04/03/19 metFORMIN HCL [Glucophage] 500 mg PO BID 04/03/19 04/03/19 Previous Rx's Medication Instructions Recorded Hydrocodone/Acetaminophen [[place] 1 tab PO Q4HR PRN 3 Days #18 tab 04/11/19 5-325] Allergies Allergy/AdvReac Type Severity Reaction Status Date / Time No Known Allergies Allergy Verified 09/28/20 16:06 Review of Systems ROS Statement: Those systems with pertinent positive or pertinent negative responses have been documented in the HPI. ROS Other: All systems not noted in ROS Statement are negative. Past Medical History Past Medical History: Atrial Fibrillation, Cancer, Chest Pain / Angina, Hyperlipidemia, Hypertension, Myocardial Infarction ([place]) Additional Past Medical History / Comment(s): pancreatic cancer Last Myocardial Infarction Date:: 2000 History of Any Multi-Drug Resistant Organisms: None Reported Past Surgical History: Back Surgery, Heart Catheterization, Heart Catheterization With Stent, Hernia Repair, Orthopedic Surgery Additional Past Surgical History / Comment(s): pancrearic resection, right hip, states they have had 6 cardiac stents Date of Last Stent Placement:: 09/14 Past Psychological History: No Psychological Hx Reported Smoking Status: Former smoker Past Alcohol Use History: Occasional Past Drug Use History: None Reported General Exam General appearance: alert, in no apparent distress Head exam: Present: atraumatic, normocephalic, normal inspection Eye exam: Present: normal appearance, PERRL, EOMI. Absent: scleral icterus, conjunctival injection, periorbital swelling Pupils: Present: normal accommodation ENT exam: Present: normal exam, normal oropharynx, mucous membranes moist Neck exam: Present: normal inspection, full ROM. Absent: tenderness, menin gismus, lymphadenopathy Respiratory exam: Present: normal lung sounds bilaterally. Absent: respiratory distress, wheezes, rales, rhonchi, stridor, chest wall tenderness, accessory muscle use, decreased breath sounds Cardiovascular Exam: Present: regular rate. Absent: JVD GI/Abdominal exam: Present: soft, normal bowel sounds. Absent: distended, tenderness, guarding, rebound, rigid Extremities exam: Present: tenderness, calf tenderness (left calf). Absent: pedal edema Back exam: Present: normal inspection, other (abrasion noted to right upper back ). Absent: tenderness Neurological exam: Present: alert, oriented X3, CN II-XII intact Psychiatric exam: Present: normal affect, normal mood Skin exam: Present: warm, dry, intact, normal color, other (abrasion to right mid back, left forearm). Absent: rash Course Vital Signs 09/28/20 16:02 Temperature 97.7 F Pulse Rate 67 Respiratory 16 Rate Blood Pressure 182/86 O2 Sat by Pulse 96 Oximetry - Reevaluation(s) Reevaluation #1: 09/28/20 19:16 Patient given 2 doses of morphine with no relief at 1650, patient given Dilaudid 0.5 mg at 1715 with still no relief, Dilaudid 1 mg was given at 1858 for pain control. Time: 19:15 Medical Decision Making - Medical Decision Making Chest x-ray shows no infiltrates, no fractures, no acute cardiopulmonary disease . Pelvis is intact with no fractures noted. WBC count is 11, hemoglobin and hematocrit is 14 and 42 respectively, troponin 0.012. X-ray of the left ankle shows a left calcaneus fracture with impaction, tested are intact. There is no abnormality of the right foot. CT abdomen and pelvis negative for acute process. Case discussed with Dr. Rosa with plan to admit the patient to the hospital for pain control of left calcaneus fracture, documented on consult for medical management. Case discussed with Dr. Petersen who was agreeable to this plan - Lab Data Result diagrams: 09/28/20 16:40 09/28/20 16:53 Lab Results 09/28/20 09/28/20 09/28/20 Range/Units 16:17 16:40 16:40 WBC 11.0 H (3.8-10.6) k/uL RBC 4.22 L (4.30-5.90) m/uL Hgb 14.6 (13.0-17.5) gm/dL Hct 42.7 (39.0-53.0) % MCV 101.2 H (80.0-100.0) fL MCH 34.5 (25.0-35.0) pg MCHC 34.1 (31.0-37.0) g/dL RDW 12.6 (11.5-15.5) % Plt Count 262 (150-450) k/uL MPV 7.4 Neutrophils % 41 % Lymphocytes % 44 % Monocytes % 10 % Eosinophils % 2 % Basophils % 0 % Neutrophils # 4.5 (1.3-7.7) k/uL Lymphocytes # 4.8 (1.0-4.8) k/uL Monocytes # 1.1 H (0-1.0) k/uL Eosinophils # 0.2 (0-0.7) k/uL Basophils # 0.1 (0-0.2) k/uL PT 11.3 (9.0-12.0) sec INR 1.1 (<1.2) APTT 26.0 (22.0-30.0) sec Sodium (137-145) mmol/L Potassium (3.5-5.1) mmol/L Chloride (98-107) mmol/L Carbon Dioxide (22-30) mmol/L Anion Gap mmol/L BUN (9-20) mg/dL Creatinine (0.66-1.25) mg/dL Est GFR (CKD-EPI)AfAm (>60 ml/min/1.73 sqM) Est GFR (CKD-EPI)NonAf (>60 ml/min/1.73 sqM) Glucose (74-99) mg/dL POC Glucose (mg/dL) 92 (75-99) mg/dL POC Glu Lead Refiner ID Nakia Dutton Plasma Lactic Acid Donnell (0.7-2.0) mmol/L Calcium (8.4-10.2) mg/dL Total Bilirubin (0.2-1.3) mg/dL AST (17-59) U/L ALT (4-49) U/L Alkaline Phosphatase (38-126) U/L Troponin I (0.000-0.034) ng/mL Total Protein (6.3-8.2) g/dL Albumin (3.5-5.0) g/dL Serum Alcohol mg/dL Blood Type Blood Type Recheck Bld Type Recheck Status Antibody Screen Spec Expiration Date 09/28/20 09/28/20 09/28/20 Range/Units 16:40 16:53 16:53 WBC (3.8-10.6) k/uL RBC (4.30-5.90) m/uL Hgb (13.0-17.5) gm/dL Hct (39.0-53.0) % MCV (80.0-100.0) fL MCH (25.0-35.0) pg MCHC (31.0-37.0) g/dL RDW (11.5-15.5) % Plt Count (150-450) k/uL MPV Neutrophils % % Lymphocytes % % Monocytes % % Eosinophils % % Basophils % % Neutrophils # (1.3-7.7) k/uL Lymphocytes # (1.0-4.8) k/uL Monocytes # (0-1.0) k/uL Eosinophils # (0-0.7) k/uL Basophils # (0-0.2) k/uL PT (9.0-12.0) sec INR (<1.2) APTT (22.0-30.0) sec Sodium 139 139 (137-145) mmol/L Potassium 4.0 4.0 (3.5-5.1) mmol/L Chloride 104 106 (98-107) mmol/L Carbon Dioxide 25 25 (22-30) mmol/L Anion Gap 10 8 mmol/L BUN 16 16 (9-20) mg/dL Creatinine 0.94 0.94 (0.66-1.25) mg/dL Est GFR (CKD-EPI)AfAm 90 90 (>60 ml/min/1.73 sqM) Est GFR (CKD-EPI)NonAf 78 78 (>60 ml/min/1.73 sqM) Glucose 90 92 (74-99) mg/dL POC Glucose (mg/dL) (75-99) mg/dL POC Glu Lead Refiner ID Plasma Lactic Acid Donnell (0.7-2.0) mmol/L Calcium 9.6 9.4 (8.4-10.2) mg/dL Total Bilirubin 1.6 H 1.5 H (0.2-1.3) mg/dL AST 36 43 (17-59) U/L ALT 28 29 (4-49) U/L Alkaline Phosphatase 71 71 (38-126) U/L Troponin I <0.012 (0.000-0.034) ng/mL Total Protein 7.1 7.4 (6.3-8.2) g/dL Albumin 4.2 4.3 (3.5-5.0) g/dL Serum Alcohol <10 mg/dL Blood Type Blood Type Recheck Bld Type Recheck Status Antibody Screen Spec Expiration Date 09/28/20 09/28/20 Range/Units 16:53 16:53 WBC (3.8-10.6) k/uL RBC (4.30-5.90) m/uL Hgb (13.0-17.5) gm/dL Hct (39.0-53.0) % MCV (80.0-100.0) fL MCH (25.0-35.0) pg MCHC (31.0-37.0) g/dL RDW (11.5-15.5) % Plt Count (150-450) k/uL MPV Neutrophils % % Lymphocytes % % Monocytes % % Eosinophils % % Basophils % % Neutrophils # (1.3-7.7) k/uL Lymphocytes # (1.0-4.8) k/uL Monocytes # (0-1.0) k/uL Eosinophils # (0-0.7) k/uL Basophils # (0-0.2) k/uL PT (9.0-12.0) sec INR (<1.2) APTT (22.0-30.0) sec Sodium (137-145) mmol/L Potassium (3.5-5.1) mmol/L Chloride (98-107) mmol/L Carbon Dioxide (22-30) mmol/L Anion Gap mmol/L BUN (9-20) mg/dL Creatinine (0.66-1.25) mg/dL Est GFR (CKD-EPI)AfAm (>60 ml/min/1.73 sqM) Est GFR (CKD-EPI)NonAf (>60 ml/min/1.73 sqM) Glucose (74-99) mg/dL POC Glucose (mg/dL) (75-99) mg/dL POC Glu Lead Refiner ID Plasma Lactic Acid Donnell 2.4 H* (0.7-2.0) mmol/L Calcium (8.4-10.2) mg/dL Total Bilirubin (0.2-1.3) mg/dL AST (17-59) U/L ALT (4-49) U/L Alkaline Phosphatase (38-126) U/L Troponin I (0.000-0.034) ng/mL Total Protein (6.3-8.2) g/dL Albumin (3.5-5.0) g/dL Serum Alcohol mg/dL Blood Type O Positive Blood Type Recheck O Pos Bld Type Recheck Status No Antibody Screen NEGATIVE Spec Expiration Date 10/01/20202352 Disposition Clinical Impression: Calcaneal fracture, Fall Disposition: ADMITTED IP TO THIS HOSP Condition: Fair Is patient prescribed a controlled substance at d/c from ED?: No Referrals: Grabiel Sullivan MD [Primary Care Provider] - 1-2 days Decision Date: 09/28/20 Decision Time: 19:28
[2020-09-28 16:52] LABS: Basophils # (A) 0.1 k/uL (0-0.2); Basophils % (A) 0 %; Eosinophils # (A) 0.2 k/uL (0-0.7); Eosinophils % (A) 2 %; HCT 42.7 % (39.0-53.0); HGB 14.6 gm/dL (13.0-17.5); Lymphocytes # (A) 4.8 k/uL (1.0-4.8); Lymphocytes % (A) 44 %; MCH 34.5 pg (25.0-35.0); MCHC 34.1 g/dL (31.0-37.0); MCV 101.2 fL (80.0-100.0); Mean Platelet Volume 7.4; Monocytes # (A) 1.1 k/uL (0-1.0); Monocytes % (A) 10 %; Neutrophils # (A) 4.5 k/uL (1.3-7.7); Neutrophils % (A) 41 %; Platelet Count 262 k/uL (150-450); RBC 4.22 m/uL (4.30-5.90); RDW 12.6 % (11.5-15.5)
[2020-09-28 17:01] LABS: Albumin 4.2 g/dL (3.5-5.0); Calcium 9.6 mg/dL (8.4-10.2); Total Bilirubin 1.6 mg/dL (0.2-1.3); Total Protein 7.1 g/dL (6.3-8.2)
[2020-09-28 17:06] LABS: INR 1.1 (<1.2); Prothrombin Time 11.3 sec (9.0-12.0)
[2020-09-28] MEDS ORDERED: HYDROmorphone 0.5 MG/0.5 ML SYRINGE IVP STA (17:11)
[2020-09-28 17:13] LABS: ALT 29 U/L (4-49); AST 43 U/L (17-59); African American GFR (CKD) 90 (>60 ml/min/1.73 sqM); Albumin 4.3 g/dL (3.5-5.0); Alcohol <10 mg/dL; Alkaline Phosphatase 71 U/L (38-126); Anion Gap 8 mmol/L; Blood Urea Nitrogen 16 mg/dL (9-20); Calcium 9.4 mg/dL (8.4-10.2); Carbon Dioxide 25 mmol/L (22-30); Chloride 106 mmol/L (98-107); Glucose 92 mg/dL (74-99); Non-African American GFR(CKD) 78 (>60 ml/min/1.73 sqM); Sodium 139 mmol/L (137-145); Total Bilirubin 1.5 mg/dL (0.2-1.3); Total Protein 7.4 g/dL (6.3-8.2)
--- NOTE | 2020-09-28 17:15 | XR ---
EXAMINATION TYPE: XR chest 1V portable DATE OF EXAM: 09/28/2020 COMPARISON: 04/09/2019 HISTORY: Fall off a ladder. Pain. TECHNIQUE: Single view FINDINGS: There is no heart failure nor confluent pneumonic infiltrate. Costophrenic angles are clear . There are chest leads. Thoracic aorta is atheromatous. IMPRESSION: No active cardiopulmonary disease. There is improved inspiration compared to old exam.
--- NOTE | 2020-09-28 17:19 | XR ---
EXAMINATION TYPE: XR pelvis AP view DATE OF EXAM: 09/28/2020 COMPARISON: NONE HISTORY: Trauma. Fell off the ladder. Pain. TECHNIQUE: Single view FINDINGS: Pelvic ring appears intact. There is right hip prosthesis. Components appear in anatomic po sition. Sacroiliac joints are intact. IMPRESSION: No acute abnormality of the pelvis. No fracture seen.
--- NOTE | 2020-09-28 17:33 | XR ---
EXAMINATION TYPE: XR foot complete bilateral DATE OF EXAM: 09/28/2020 COMPARISON: NONE HISTORY: Fall. Pain. TECHNIQUE: 6 views FINDINGS: There is fracture of the left calcaneus. There is probably some impaction of the fragments. There is bilateral hallux valgus deformity that is worse on the right side. The right calcaneus is i ntact. The metatarsals are intact. The toes appear intact. IMPRESSION: No acute abnormality of the right foot. Acute fracture of the body of the left calcaneus with impaction.
[2020-09-28] MEDS ORDERED: SODIUM CHLORIDE 0.9% 500 ML 500 ML IV STA (17:34)
--- NOTE | 2020-09-28 18:01 | CT ---
EXAMINATION TYPE: CT brain jennyine wo con DATE OF EXAM: 09/28/2020 COMPARISON: None HISTORY: 6ft fall from ladder. Left foot injury. Pt on blood thinners. CT DLP: 1825.7 mGycm Automated exposure control for dose reduction was used. There is some cerebral cortical atrophy. There is no mass effect nor midline shift. There is no sign of intracranial hemorrhage. The calvarium is intact. Skull base is intact. There is normal aeration o f the mastoid sinuses. Cervical vertebra have fairly normal alignment. There is degenerative disc space narrowing at C5-6 an d C6-7 with spur formation. There is multilevel hypertrophic facet arthropathy. I see no bony destruc tive process. 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 No fracture seen. Cerebral atrophy. No acute intracranial abnormality.
--- NOTE | 2020-09-28 18:17 | CT ---
EXAMINATION TYPE: CT abdomen pelvis wo con DATE OF EXAM: 09/28/2020 COMPARISON: 08/05/2020 HISTORY: 6ft fall from ladder. Left foot injury. Pt on blood thinners. CT DLP: 627 mGycm Automated exposure control for dose reduction was used. Images obtained from the diaphragm to the floor the pelvis with no contrast. There are multiple hepatic cysts. The largest is in the posterior right lobe of the liver and measure s 8.5 cm. The bile ducts are nondilated. Spleen is absent. I see no evidence of pancreatic mass. The stomach appears intact. Kidneys have normal size. There is no hydronephrosis. Ureters are not dilated. Abdominal aorta is ath eromatous. There is no retroperitoneal adenopathy. Bladder distends smoothly. There is right hip pros thesis. There is no free fluid in the pelvis. There is no mesenteric edema. There is no ascites or fr ee air. There is no bowel obstruction. Appendix is not definitely seen. There is no sign of thickened appendix. The lumbar vertebra have normal alignment. There is narrowing of L5-S1 disc space with spur formation . There is no compression fracture. There is laminectomy defect in the lower lumbar spine. The bony p jessica is intact. Sacroiliac joints appear intact. There is no lumbar paraspinal mass. The visualized ribs appear intact. IMPRESSION: No acute abnormality of the abdomen pelvis. No adverse change compared to old exam.
[2020-09-28] MEDS ORDERED: HYDROmorphone 1 MG/ML 1 ML SYRINGE IVP STA (18:50)
[2020-09-28] MEDS ORDERED: HYDROmorphone 0.5 MG/0.5 ML SYRINGE IVP PRN (19:21)
[2020-09-28] MEDS ORDERED: NALOXONE 0.4 MG/ML 1 ML VIAL IV PRN (19:21)
[2020-09-28] MEDS ORDERED: ACETAMINOPHEN TAB 325 MG TAB PO PRN (19:21)
[2020-09-28] MEDS: SODIUM CHLORIDE 0.9% 1,000 ML IV SCH (20:20)
[2020-09-28 20:33] LABS: Appearance,Urine Clear (Clear); Bilirubin,Urine Negative (Negative); Blood,Urine Small (Negative); Color,Urine Light Yellow; Glucose,Urine (UA) Negative (Negative); Ketones,Urine Negative (Negative); Leukocyte Esterase,Urine Negative (Negative); Nitrite,Urine Negative (Negative); Protein,Urine Negative (Negative); RBC,Urine 2 /hpf (0-5); Specific Gravity,Urine 1.009 (1.001-1.035); Urobilinogen,Urine <2.0 mg/dL (<2.0); WBC,Urine 1 /hpf (0-5)
[2020-09-28 20:42] LABS: Amphetamine Screen,Urine Not Detected (NotDetected); Barbiturate Screen,Urine Not Detected (NotDetected); Benzodiazepines Screen,Urine Not Detected (NotDetected); Cocaine Screen,Urine Not Detected (NotDetected); Methadone Screen, Urine Not Detected (NotDetected); Opiate Screen,Urine Detected (NotDetected); Oxycodone Screen, Urine Not Detected (NotDetected); Phencyclidine Screen,Urine Not Detected (NotDetected); Tricyclic Antidepressant,Urine Not Detected (NotDetected); Urn Cannabinoid Scrn Not Detected (NotDetected)
[2020-09-28] MEDS ORDERED: TAMSULOSIN 0.4 MG CAP.ER.24H PO SCH (22:30)
[2020-09-29] MEDS ORDERED: ALPRAZolam 0.5 MG TAB PO PRN (01:49)
--- NOTE | 2020-09-29 02:08 | P.CONS ---
History of Present Illness - Reason for Consult Consult date: 09/28/20 medical clearance Requesting physician: Agapito Rosa - Chief Complaint fall , left ankle pain - History of Present Illness 80 year old male with afib on eliquis, pancreatic cancer in remission , CAD s/p stents, hypertension patient comes in after sustaining a fall from a 6' ladder , he landed on his left foot, and felt immediate pain and could not bear weight anymore. he denies passing out , or head injury . he is on dual antiplatelets. he otherwise denies any associated symptoms of SOB, chest pain , palpitations, nausea or vomiting. he reports a lot of pain in his left ankle which looks swollen and bruised. with movement increasing pain workup in the ED, showed lactic acidosis , EKG NSR< CT abd no acute pathology , CT head no acute pathology , xray of the foot showed left calcaneus fracture, patient is no eliquis and plavix. he reports Acute coronary syndrome event recently about 2 months ago , requiring stents. for which he is currently taking plavix he denies any smoking , but admits to daily drinking of one drink of bourbon Review of Systems Pertinent positives as noted in HPI. All other systems were reviewed and are negative Past Medical History Past Medical History: Atrial Fibrillation, Cancer, Chest Pain / Angina, Hyperlipidemia, Hypertension, Myocardial Infarction ([place]) Additional Past Medical History / Comment(s): pancreatic cancer Last Myocardial Infarction Date:: 2000 History of Any Multi-Drug Resistant Organisms: None Reported Past Surgical History: Back Surgery, Heart Catheterization, Heart Catheterization With Stent, Hernia Repair, Orthopedic Surgery Additional Past Surgical History / Comment(s): pancrearic resection, right hip, states they have had 6 cardiac stents Date of Last Stent Placement:: 09/14 Past Psychological History: No Psychological Hx Reported Smoking Status: Former smoker Past Alcohol Use History: Occasional Past Drug Use History: None Reported - Past Family History family Family Medical History: No Reported History Medications and Allergies Home Medications Medication Instructions Recorded Confirmed Type Clopidogrel [Plavix] 75 mg PO DAILY 04/03/19 09/28/20 History Dutasteride 0.5 mg PO DAILY 04/03/19 09/28/20 History Lovastatin [Mevacor] 20 mg PO DAILY 04/03/19 09/28/20 History Metoprolol Succinate [Toprol XL] 25 mg PO DAILY 04/03/19 09/28/20 History Tamsulosin [Flomax] 0.4 mg PO PC-SUPPER 04/03/19 09/28/20 History metFORMIN HCL [Glucophage] 500 mg PO BID 04/03/19 09/28/20 History Acetaminophen [Tylenol Extra 500 mg PO DAILY PRN 09/28/20 09/28/20 History Strength] Apixaban [Eliquis] 5 mg PO BID 09/28/20 09/28/20 History Donepezil HCl [Aricept] 5 mg PO HS 09/28/20 09/28/20 History Losartan Potassium 100 mg PO DAILY 09/28/20 09/28/20 History Rosuvastatin [Crestor] 20 mg PO HS 09/28/20 09/28/20 History Zolpidem Tartrate [Ambien] 10 mg PO HS PRN 09/28/20 09/28/20 History amLODIPine [Norvasc] 5 mg PO DAILY 09/28/20 09/28/20 History hydrOXYzine HCL [Atarax] 25 - 50 mg PO HS PRN 09/28/20 09/28/20 History Allergies Allergy/AdvReac Type Severity Reaction Status Date / Time No Known Allergies Allergy Verified 09/28/20 20:07 Physical Exam Vitals: Vital Signs Temp Pulse Resp BP Pulse Ox 09/28/20 16:02 97.7 F 67 16 182/86 96 Intake and Output 09/28/20 09/28/20 09/29/20 14:59 22:59 06:59 Other: Weight 68.039 kg Constitutional: No acute distress, conversant, pleasant, restless Eyes: Anicteric sclerae, moist conjunctiva, Pupils equal round reactive to light ENMT: NC/AT Oropharynx clear, no erythema, or exudates Neck: Supple, FROM, no masses, or JVD No carotid bruits No thyromegaly Lungs: Clear to auscultation Clear to percussion Normal respiratory effort, no accessory muscle use Cardiovascular: Heart regular in rate and rhythm, Systolic murmurs,no gallops, or rubs No peripheral edema Abdominal: Soft Nontender, no guarding, rebound or rigidity Abdomen moving with respiration Normoactive bowel sounds No hepatomegaly, No splenomegaly No palpable mass No abdominal wall hernia noted Skin: Normal temperature, tone, texture, turgor No induration No subcutaneous nodules No rash, lesions No ulcers Extremities: Swelling of the left ankle with bruising and tenderness to palpation no open wounds or cuts No digital cyanosis No clubbing Pedal pulses intact and symmetrical Radial pulses intact and symmetrical No calf tenderness Psychiatric: Alert and oriented to person, place and time Appropriate affect fair judgement Neuro Muscles Strength 4/5 in all 4 extremities , limited exam over the left foot due to pain Sensation to light touch grossly present throughout Cranial nerves II-XII grossly intact No focal sensory deficits Lymphatics: no palpable cervical or supraclavicular , or inguinal lymph nodes Results CBC & Chem 7: 09/28/20 16:40 09/28/20 16:53 Labs: Abnormal Lab Results - Last 24 Hours (Table) 09/28/20 09/28/20 09/28/20 Range/Units 16:40 16:40 16:53 WBC 11.0 H (3.8-10.6) k/uL RBC 4.22 L (4.30-5.90) m/uL MCV 101.2 H (80.0-100.0) fL Monocytes # 1.1 H (0-1.0) k/uL Plasma Lactic Acid Donnell (0.7-2.0) mmol/L Total Bilirubin 1.6 H 1.5 H (0.2-1.3) mg/dL Urine Blood (Negative) Urine Opiates Screen (NotDetected) 09/28/20 09/28/20 09/28/20 Range/Units 16:53 20:24 20:24 WBC (3.8-10.6) k/uL RBC (4.30-5.90) m/uL MCV (80.0-100.0) fL Monocytes # (0-1.0) k/uL Plasma Lactic Acid Donnell 2.4 H* (0.7-2.0) mmol/L Total Bilirubin (0.2-1.3) mg/dL Urine Blood Small H (Negative) Urine Opiates Screen Detected H (NotDetected) Assessment and Plan Assessment: Acute fracture of the left calcaneum, due to accidental fall Management per orthopedics Pain control DVT prophylaxis per orthopedics History of A. fib paroxysmal, on Eliquis Hold Eliquis for possible surgical intervention Recent event of acute coronary syndrome requiring stents currently on Plavix Consult cardiology for preop cardiology clearance Patient requires Plavix for a year after acute coronary event and to prevent restenosis of the stent Currently patient denies any chest pain or trouble breathing EKG shows normal sinus rhythm History of pancreatic cancer in remission Hypertension controlled continue his home meds Lactic acidosis resolved with IV fluid hydration Patient could not be cleared from a medical standpoint due to recent acute coronary syndrome event about 2 months ago requiring stents and patient currently on Plavix will defer to cardiology for cardiac evaluation Thank you for allowing us to participate in the care of this patient. Do not hesitate to contact us with questions. Someone can be reached from the [facility] hospitalist group at all hours of the day at [phone].
[2020-09-29 05:43] VITALS: RESP 18
[2020-09-29 08:29] LABS: Glucose,Whole Blood 159 mg/dL (75-99)
[2020-09-29] MEDS ORDERED: amLODIPine 5 MG TAB PO SCH (09:00)
[2020-09-29] MEDS ORDERED: ATORVASTATIN 10 MG TAB PO SCH (09:00)
[2020-09-29] MEDS ORDERED: CLOPIDOGREL 75 MG TAB PO SCH (09:00)
[2020-09-29] MEDS ORDERED: METOPROLOL SUCCINATE (ER) 25 MG TAB.ER.24H PO SCH (09:00)
[2020-09-29] MEDS ORDERED: LOSARTAN 50 MG TAB PO SCH (09:00)
[2020-09-29] MEDS ORDERED: FINASTERIDE 5 MG TAB PO SCH (09:00)
[2020-09-29 09:07] LABS: HCT 38.1 % (39.6-50.0); HGB 12.6 g/dL (13.0-17.0); MCH 33.9 pg (27.0-32.0); MCHC 33.1 g/dL (32.0-37.0); MCV 102.4 fL (80.0-97.0); Mean Platelet Volume 10.2 fL (9.5-12.2); Platelet Count 228 X 10*3/uL (140-440); RBC 3.72 X 10*6/uL (4.40-5.60); RDW 13.6 % (11.5-14.5); WBC 11.57 X 10*3/uL (4.50-10.00)
[2020-09-29 09:18] LABS: African American GFR (CKD) 83.2 (60.0-200.0); Anion Gap 9.9 mmol/L (4.00-12.00); Calcium 8.6 mg/dL (8.7-10.3); Carbon Dioxide 25.1 mmol/L (21.6-31.8); Non-African American GFR(CKD) 71.8 (60.0-200.0)
[2020-09-29] MEDS: INSULIN ASPART (NovoLOG) 100 UNIT/ML VIAL SQ SCH ×2 (09:26→12:46)
[2020-09-29] MEDS: SODIUM CHLORIDE 0.9% 1,000 ML IV SCH (09:27)
--- NOTE | 2020-09-29 09:40 | P.CRDCN ---
History of Present Illness History of present illness: HISTORY OF PRESENTING ILLNESS This is a pleasant 80-year-old male past medical history significant for coronary artery artery disease status post recent PCI June 2020, paroxysmal atrial fibrillation on long-term anticoagulation, hypertension, dyslipidemia. pancreatic CA s/p resection and chemo 2016, dementia and arthritis. He follows in the office with Dr. Cintron a entry level sales consultant out of [facility]. We have been asked to see in consultation for pre-op. He states he was doing some housework yesterday on a ladder when he lost his balance and fell. He was found to have a left calceneous fracture. He has yet to be seen by ortho, however plavix and eliquis have been held per the primary care team. He is seen and examined sitting up in bed in no acute distress. He denies chest pain, shortness of breath, dizziness or palpitations currently. He states he exercises at the gym 3 days a week and walks on a treadmill for 2 miles. He has no symptoms of angina during exercise. He also does some weightlifting using an exercise ball and he does feel somewhat dizzy or lightheaded when he initially stands up after sitting on the exercise ball. DIAGNOSTICS EKG reveals sinus mechanism heart rate of 66 with left anterior fascicular block. Chest xray negative for an acute cardiopulmonary process. Laboratory reviewed, WBC 11.5, hemoglobin 12.6, platelets 228, sodium 141, potassium 4.0, creatinine 1.0, lactic acid on admission 2. 4 repeat after hydration 1.3, cardiac enzymes negative 1. Current cardiac medications include amlodipine 5 mg daily, rosuvastatin 20 mg daily, Eliquis 5 mg twice a day, Toprol 25 mg daily, lovastatin 20 mg daily, losartan 100 mg daily and Plavix 75 mg daily. REVIEW OF SYSTEMS At the time of my exam: CONSTITUTIONAL: Denies fever or chills. CARDIOVASCULAR: Denies chest pain, shortness of breath, orthopnea, PND or palpitations. RESPIRATORY: Denies cough. GASTROINTESTINAL: Denies abdominal pain, diarrhea, constipation, nausea or v omiting. MUSCULOSKELETAL: Complains of left foot and ankle pain and swelling. NEUROLOGIC: Denies numbness, tingling, headacbe or weakness. ENDOCRINE: Denies fatigue, weight change, polydipsia or polyurina. GENITOURINARY: Denies burning, hematuria or urgency with micturation. HEMATOLOGIC: Denies history of anemia or bleeding. PHYSICAL EXAMINATION Blood pressure 164/92 heart rate 73 afebrile and maintaining oxygen saturation on room air. CONSTITUTIONAL: No apparent distress. HEENT: Head is normocephalic. Pupils are equal, round. Sclerae anicteric. Mucous membranes of the mouth are moist. No JVD. No carotid bruit. CHEST EXAMINATION: Lungs are clear to auscultation. No chest wall tenderness is noted on palpation or with deep breathing. HEART EXAMINATION: Irregular rate and rhythm. S1, S2 heard. Systolic ejection murmur at the right lower sternal border, no gallops or rub. ABDOMEN: Soft, nontender. Positive bowel sounds. EXTREMITIES: 2+ peripheral pulses, left lower extremity non-pitting swelling of the foot and ankle no swelling on the right. No calf tenderness. NEUROLOGIC EXAMINATION: Patient is awake, alert and oriented x3. ASSESSMENT Fall Left calcaneous fracture Coronary artery disease s/p recent PCI on plavix Paroxysmal atrial fibrillation on eliquis Hypertension Dyslipidemia Lactic acidosis PLAN From a cardiac perspective, he is still within 3 months of his PCI. It is imperative he remain on plavix to prevent in-stent restenosis. Clinically he is not in heart failure or fluid overload state. He has no symptoms of angina. There are no acute contraindications to undergo surgical intervention, however if he requires surgery he will have to remain on plavix which will place him at a higher risk for bleeding. Eliquis can be held, his last dose was yesterday morning. Request records from [facility] regarding recent PCI. Obtain 2D echocardiogram and doppler study to assess cardiac structure and function. Thank you kindly for this consultation. Nurse Practitioner note has been reviewed, I agree with a documented findings and plan of care. Patient was seen and examined. Past Medical History Past Medical History: Atrial Fibrillation, Cancer, Chest Pain / Angina, Hyperlipidemia, Hypertension, Myocardial Infarction ([place]) Additional Past Medical History / Comment(s): pancreatic cancer Last Myocardial Infarction Date:: 2000 History of Any Multi-Drug Resistant Organisms: None Reported Past Surgical History: Back Surgery, Heart Catheterization, Heart Catheterization With Stent, Hernia Repair, Orthopedic Surgery Additional Past Surgical History / Comment(s): pancrearic resection, right hip, states they have had 6 cardiac stents Date of Last Stent Placement:: 09/14 Past Psychological History: No Psychological Hx Reported Smoking Status: Former smoker Past Alcohol Use History: Occasional Past Drug Use History: None Reported - Past Family History family Family Medical History: No Reported History Father Family Medical History: Cancer Additional Family Medical History / Comment(s): Skin cancer Mother Family Medical History: Cancer Additional Family Medical History / Comment(s): Breast cancer Medications and Allergies Home Medications Medication Instructions Recorded Confirmed Type Clopidogrel [Plavix] 75 mg PO DAILY 04/03/19 09/28/20 History Dutasteride 0.5 mg PO DAILY 04/03/19 09/28/20 History Lovastatin [Mevacor] 20 mg PO DAILY 04/03/19 09/28/20 History Metoprolol Succinate [Toprol XL] 25 mg PO DAILY 04/03/19 09/28/20 History Tamsulosin [Flomax] 0.4 mg PO PC-SUPPER 04/03/19 09/28/20 History metFORMIN HCL [Glucophage] 500 mg PO BID 04/03/19 09/28/20 History Acetaminophen [Tylenol Extra 500 mg PO DAILY PRN 09/28/20 09/28/20 History Strength] Apixaban [Eliquis] 5 mg PO BID 09/28/20 09/28/20 History Donepezil HCl [Aricept] 5 mg PO HS 09/28/20 09/28/20 History Losartan Potassium 100 mg PO DAILY 09/28/20 09/28/20 History Rosuvastatin [Crestor] 20 mg PO HS 09/28/20 09/28/20 History Zolpidem Tartrate [Ambien] 10 mg PO HS PRN 09/28/20 09/28/20 History amLODIPine [Norvasc] 5 mg PO DAILY 09/28/20 09/28/20 History hydrOXYzine HCL [Atarax] 25 - 50 mg PO HS PRN 09/28/20 09/28/20 History Allergies Allergy/AdvReac Type Severity Reaction Status Date / Time No Known Allergies Allergy Verified 09/28/20 20:07 Physical Exam Vitals: Vital Signs Temp Pulse Pulse Resp BP BP Pulse Ox 09/29/20 07:29 98.2 F 73 18 164/92 09/29/20 05:42 80 18 163/88 98 09/28/20 16:02 97.7 F 67 16 182/86 96 Intake and Output 05/07/2009/29/20 09/29/20 22:59 06:59 14:59 Other: Weight 68.039 kg Results 09/29/20 05:57 09/29/20 05:57 Cardiac Enzymes 09/28/20 09/28/20 09/28/20 Range/Units 16:40 16:53 16:53 AST 36 43 (17-59) U/L Troponin I <0.012 (0.000-0.034) ng/mL Coagulation 09/28/20 Range/Units 16:40 PT 11.3 (9.0-12.0) sec APTT 26.0 (22.0-30.0) sec CBC 09/28/20 Range/Units 16:40 WBC 11.0 H (3.8-10.6) k/uL RBC 4.22 L (4.30-5.90) m/uL Hgb 14.6 (13.0-17.5) gm/dL Hct 42.7 (39.0-53.0) % Plt Count 262 (150-450) k/uL Comprehensive Metabolic Panel 09/28/20 09/28/20 Range/Units 16:40 16:53 Sodium 139 139 (137-145) mmol/L Potassium 4.0 4.0 (3.5-5.1) mmol/L Chloride 104 106 (98-107) mmol/L Carbon Dioxide 25 25 (22-30) mmol/L BUN 16 16 (9-20) mg/dL Creatinine 0.94 0.94 (0.66-1.25) mg/dL Glucose 90 92 (74-99) mg/dL Calcium 9.6 9.4 (8.4-10.2) mg/dL AST 36 43 (17-59) U/L ALT 28 29 (4-49) U/L Alkaline Phosphatase 71 71 (38-126) U/L Total Protein 7.1 7.4 (6.3-8.2) g/dL Albumin 4.2 4.3 (3.5-5.0) g/dL Current Medications Generic Name Dose Route Start Last Admin Trade Name Freq PRN Reason Stop Dose Admin Acetaminophen 650 mg 09/28/20 19:21 Acetaminophen Tab 325 Mg Tab PO Q6HR PRN Mild Pain or Fever > 100.5 Alprazolam 0.5 mg 09/29/20 01:49 Alprazolam 0.5 Mg Tab PO TID PRN Anxiety Amlodipine Besylate 5 mg 09/29/20 09:00 Amlodipine 5 Mg Tab PO DAILY [facility] Atorvastatin Calcium 10 mg 09/29/20 09:00 Atorvastatin 10 Mg Tab PO DAILY [facility] Atorvastatin Calcium 40 mg 09/29/20 21:00 Atorvastatin 40 Mg Tab PO HS [facility] Donepezil HCl 5 mg 09/29/20 21:00 Donepezil 5 Mg Tab PO HS [facility] Finasteride 5 mg 09/29/20 09:00 Finasteride 5 Mg Tab PO DAILY [facility] Hydromorphone HCl 0.5 mg 09/28/20 19:21 09/29/20 05:44 Hydromorphone 0.5 Mg/0.5 Ml Syringe IVP 0.5 mg Q3HR PRN Administration Moderate Pain Sodium Chloride 1,000 mls @ 75 mls/hr 09/28/20 19:30 09/28/20 20:20 Saline 0.9% IV 75 mls/hr .[id number] [facility] Administration Insulin Aspart 0 unit 09/29/20 07:30 Insulin Aspart (Novolog) 100 Unit/Ml Vial SQ AC-TID [facility] Protocol Losartan Potassium 100 mg 09/29/20 09:00 Losartan 50 Mg Tab PO DAILY [facility] Metoprolol Succinate 25 mg 09/29/20 09:00 Metoprolol Succinate (Er) 25 Mg Tab.Er.24h PO DAILY [facility] Naloxone HCl 0.2 mg 09/28/20 19:21 Naloxone 0.4 Mg/Ml 1 Ml Vial IV Q2M PRN Opioid Reversal Tamsulosin HCl 0.4 mg 09/28/20 22:30 09/28/20 22:45 Tamsulosin 0.4 Mg Cap.Er.24h PO 0.4 mg PC-SUPPER STEVE Administration Intake and Output 09/28/20 09/29/20 09/29/20 22:59 06:59 14:59 Other: Weight 68.039 kg 09/28/20 16:40 09/28/20 16:53
[2020-09-29 10:43] LABS: Basophils # (A) 0.05 X 10*3/uL (0.00-0.10); Basophils % (A) 0.4 %; Eosinophils # (A) 0.05 X 10*3/uL (0.04-0.35); Eosinophils % (A) 0.4 %; Lymphocytes # (A) 2.45 X 10*3/uL (0.90-5.00); Lymphocytes % (A) 21.2 %; Monocytes # (A) 1.79 X 10*3/uL (0.20-1.00); Monocytes % (A) 15.5 %; Neutrophils # (A) 7.19 X 10*3/uL (1.80-7.70); Neutrophils % (A) 62.2 %
[2020-09-29 12:43] LABS: Glucose,Whole Blood 122 mg/dL (75-99)
[2020-09-29 12:59] VITALS: BP 187/73; PULSE 69; TEMP 97.9
--- NOTE | 2020-09-29 14:27 | P.HPOR ---
History of Present Illness H&P Date: 09/29/20 This is a 80-year-old male who is admitted for left calcaneal fracture after falling 6 feet from a ladder in his garage on 09/28/2020. Patient was evaluated in the emergency room where x-rays revealed fracture of left calcaneus. Patient was then admitted for pain control. Patient's past medical history significant for atrial fibrillation, hyperlipidemia, hypertension, myocardial infarction, coronary artery disease with recent stent placement and pancreatic cancer. Patient is on Plavix and Eliquis due to recent stent placement. Patient denies any fever/chills, numbness, weakness or tingling. Review of Systems See HPI. Past Medical History Past Medical History: Atrial Fibrillation, Cancer, Chest Pain / Angina, Hyperlipidemia, Hypertension, Myocardial Infarction ([place]) Additional Past Medical History / Comment(s): pancreatic cancer Last Myocardial Infarction Date:: 2000 History of Any Multi-Drug Resistant Organisms: None Reported Past Surgical History: Back Surgery, Heart Catheterization, Heart Catheterization With Stent, Hernia Repair, Orthopedic Surgery Additional Past Surgical History / Comment(s): pancrearic resection, right hip, states they have had 6 cardiac stents Past Anesthesia/Blood Transfusion Reactions: No Reported Reaction Date of Last Stent Placement:: 09/14 Past Psychological History: No Psychological Hx Reported Smoking Status: Former smoker Past Alcohol Use History: Occasional Past Drug Use History: None Reported - Past Family History Father Family Medical History: Cancer Additional Family Medical History / Comment(s): Skin cancer Mother Family Medical History: Cancer Additional Family Medical History / Comment(s): Breast cancer family Family Medical History: No Reported History Medications and Allergies Home Medications Medication Instructions Recorded Confirmed Type Clopidogrel [Plavix] 75 mg PO DAILY 04/03/19 09/28/20 History Dutasteride 0.5 mg PO DAILY 04/03/19 09/28/20 History Lovastatin [Mevacor] 20 mg PO DAILY 04/03/19 09/28/20 History Metoprolol Succinate [Toprol XL] 25 mg PO DAILY 04/03/19 09/28/20 History Tamsulosin [Flomax] 0.4 mg PO PC-SUPPER 04/03/19 09/28/20 History metFORMIN HCL [Glucophage] 500 mg PO BID 04/03/19 09/28/20 History Acetaminophen [Tylenol Extra 500 mg PO DAILY PRN 09/28/20 09/28/20 History Strength] Apixaban [Eliquis] 5 mg PO BID 09/28/20 09/28/20 History Donepezil HCl [Aricept] 5 mg PO HS 09/28/20 09/28/20 History Losartan Potassium 100 mg PO DAILY 09/28/20 09/28/20 History Rosuvastatin [Crestor] 20 mg PO HS 09/28/20 09/28/20 History Zolpidem Tartrate [Ambien] 10 mg PO HS PRN 09/28/20 09/28/20 History amLODIPine [Norvasc] 5 mg PO DAILY 09/28/20 09/28/20 History hydrOXYzine HCL [Atarax] 25 - 50 mg PO HS PRN 09/28/20 09/28/20 History HYDROcodone/APAP 7.5-325MG [Hunters 1 - 2 tab PO Q6H PRN #32 tab 09/29/20 Rx 7.5-325] Sennosides [Senokot] 2 tab PO DAILY PRN #60 tablet 09/29/20 Rx Allergies Allergy/AdvReac Type Severity Reaction Status Date / Time No Known Allergies Allergy Verified 09/28/20 20:07 Physical Examination On exam patient is resting comfortably in bed in no acute distress. Left lower extremity with mild swelling present. Compartments are soft. Sensation is intact. Calves are soft and nontender to palpation. The left lower extremity is warm and well perfused. Exams of the head, neck, bilateral upper extremities and right lower extremity are within normal limits. Neurovascular status and circulatory status are intact. Results X-rays of bilateral feet dated 09/28/2020 reveal fracture of the left calcaneus. - Labs Labs: Abnormal Lab Results - Last 24 Hours (Table) 09/28/20 09/28/20 09/28/20 Range/Units 16:40 16:40 16:53 WBC 11.0 H (3.8-10.6) k/uL RBC 4.22 L (4.30-5.90) m/uL Hgb (13.0-17.0) g/dL Hct (39.6-50.0) % MCV 101.2 H (80.0-100.0) fL MCH (27.0-32.0) pg Monocytes # 1.1 H (0-1.0) k/uL Glucose (70-110) mg/dL POC Glucose (mg/dL) (75-99) mg/dL Plasma Lactic Acid Donnell (0.7-2.0) mmol/L Calcium (8.7-10.3) mg/dL Total Bilirubin 1.6 H 1.5 H (0.2-1.3) mg/dL Urine Blood (Negative) Urine Opiates Screen (NotDetected) 09/28/20 09/28/20 09/28/20 Range/Units 16:53 20:24 20:24 WBC (3.8-10.6) k/uL RBC (4.30-5.90) m/uL Hgb (13.0-17.0) g/dL Hct (39.6-50.0) % MCV (80.0-100.0) fL MCH (27.0-32.0) pg Monocytes # (0-1.0) k/uL Glucose (70-110) mg/dL POC Glucose (mg/dL) (75-99) mg/dL Plasma Lactic Acid Donnell 2.4 H* (0.7-2.0) mmol/L Calcium (8.7-10.3) mg/dL Total Bilirubin (0.2-1.3) mg/dL Urine Blood Small H (Negative) Urine Opiates Screen Detected H (NotDetected) 09/29/20 09/29/20 09/29/20 Range/Units 05:57 05:57 08:28 WBC 11.57 H (3.8-10.6) k/uL RBC 3.72 L (4.30-5.90) m/uL Hgb 12.6 L (13.0-17.0) g/dL Hct 38.1 L (39.6-50.0) % MCV 102.4 H (80.0-100.0) fL MCH 33.9 H (27.0-32.0) pg Monocytes # 1.79 H (0-1.0) k/uL Glucose 139 H (70-110) mg/dL POC Glucose (mg/dL) 159 H (75-99) mg/dL Plasma Lactic Acid Donnell (0.7-2.0) mmol/L Calcium 8.6 L (8.7-10.3) mg/dL Total Bilirubin (0.2-1.3) mg/dL Urine Blood (Negative) Urine Opiates Screen (NotDetected) 09/29/20 Range/Units 12:22 WBC (3.8-10.6) k/uL RBC (4.30-5.90) m/uL Hgb (13.0-17.0) g/dL Hct (39.6-50.0) % MCV (80.0-100.0) fL MCH (27.0-32.0) pg Monocytes # (0-1.0) k/uL Glucose (70-110) mg/dL POC Glucose (mg/dL) 122 H (75-99) mg/dL Plasma Lactic Acid Donnell (0.7-2.0) mmol/L Calcium (8.7-10.3) mg/dL Total Bilirubin (0.2-1.3) mg/dL Urine Blood (Negative) Urine Opiates Screen (NotDetected) H & H 09/28/20 09/29/20 Range/Units 16:40 05:57 Hgb 14.6 12.6 L (13.0-17.5) gm/dL Hct 42.7 38.1 L (39.0-53.0) % Coagulation 09/28/20 Range/Units 16:40 INR 1.1 (<1.2) Result Diagrams: 09/29/20 05:57 09/29/20 05:57 Assessment and Plan (1) Calcaneal fracture Current Visit: Yes Status: Acute Code(s): S92.009A - UNSP FRACTURE OF UNSP CALCANEUS, INIT FOR CLOS FX SNOMED Code(s): 232230220 (2) Fall Current Visit: Yes Status: Acute Code(s): W19.XXXA - UNSPECIFIED FALL, INITIAL ENCOUNTER SNOMED Code(s): 2179752 Plan: 1. Patient is to be nonweightbearing with a premium equalizer boot. Hugh wallace is consulted for knee scooter and equalizer boot. 2. Rest, ice and elevate the left lower extremity. 3. Continue pain control. 4. Appreciate input from internal medicine. 5. Once patient receives equalizer boot and knee scooter he is in good condition for discharge home. Recommend follow-up as an outpatient with [facility] in one week.
--- NOTE | 2020-09-29 16:42 | P.DS ---
Providers Date of admission: 09/28/20 21:00 Expected date of discharge: 09/29/20 Attending physician: Agapito Rosa Consults: 09/28/20 19:21 Consult Physician Stat Consulting Provider: Cleopatra Bryan Consult Reason/Comments: medical management Do you want consulting provider notified?: Yes 09/29/20 01:47 Consult Physician Routine Consulting Provider: Alberto Babb Consult Reason/Comments: recent ACS s/p stents 2 months ago, on plavix, cardiac clearance Do you want consulting provider notified?: Yes Primary care physician: Grabiel Sullivan - Discharge Diagnosis(es) (1) Calcaneal fracture Current Visit: Yes Status: Acute (2) Fall Current Visit: Yes Status: Acute Hospital Course: This is a 80-year-old male who was admitted for left calcaneal fracture after a fall at home on 09/28/2020. X-rays in the emergency room revealed a fracture of the left calcaneus. Patient was admitted on 09/28/2020 for pain control. Labs and vital signs are stable on day of discharge. Patient is placed in a short leg splint. Patient was evaluated by internal medicine along with cardiology during this admission due to recent PCI. Patient takes Plavix and Eliquis for anticoagulation. On exam patient is resting comfortably in bed in no acute distress. There is swelling of the left foot. Faint ecchymosis. Skin is intact. There is a small blister medially. There is no erythema. Sensation intact. The left lower extremity is warm and well perfused. Neurovascular status and circulatory status are intact. Patient is discharged home in good condition. Patient Condition at Discharge: Fair Plan - Discharge Summary Discharge Rx Participant: No New Discharge Prescriptions: New HYDROcodone/APAP 7.5-325MG [[place] 7.5-325] 1 - 2 tab PO Q6H PRN #32 tab PRN Reason: Pain Sennosides [Senokot] 2 tab PO DAILY PRN #60 tablet PRN Reason: Constipation No Action metFORMIN HCL [Glucophage] 500 mg PO BID Metoprolol Succinate [Toprol XL] 25 mg PO DAILY Clopidogrel [Plavix] 75 mg PO DAILY Tamsulosin [Flomax] 0.4 mg PO PC-SUPPER Lovastatin [Mevacor] 20 mg PO DAILY Dutasteride 0.5 mg PO DAILY hydrOXYzine HCL [Atarax] 25 - 50 mg PO HS PRN PRN Reason: Insomnia Zolpidem Tartrate [Ambien] 10 mg PO HS PRN PRN Reason: Insomnia Acetaminophen [Tylenol Extra Strength] 500 mg PO DAILY PRN PRN Reason: Pain amLODIPine [Norvasc] 5 mg PO DAILY Rosuvastatin [Crestor] 20 mg PO HS Donepezil HCl [Aricept] 5 mg PO HS Apixaban [Eliquis] 5 mg PO BID Losartan Potassium 100 mg PO DAILY Discharge Medication List Clopidogrel [Plavix] 75 mg PO DAILY 04/03/19 [History] Dutasteride 0.5 mg PO DAILY 04/03/19 [History] Lovastatin [Mevacor] 20 mg PO DAILY 04/03/19 [History] Metoprolol Succinate [Toprol XL] 25 mg PO DAILY 04/03/19 [History] Tamsulosin [Flomax] 0.4 mg PO PC-SUPPER 04/03/19 [History] metFORMIN HCL [Glucophage] 500 mg PO BID 04/03/19 [History] Acetaminophen [Tylenol Extra Strength] 500 mg PO DAILY PRN 09/28/20 [History] Apixaban [Eliquis] 5 mg PO BID 09/28/20 [History] Donepezil HCl [Aricept] 5 mg PO HS 09/28/20 [History] Losartan Potassium 100 mg PO DAILY 09/28/20 [History] Rosuvastatin [Crestor] 20 mg PO HS 09/28/20 [History] Zolpidem Tartrate [Ambien] 10 mg PO HS PRN 09/28/20 [History] amLODIPine [Norvasc] 5 mg PO DAILY 09/28/20 [History] hydrOXYzine HCL [Atarax] 25 - 50 mg PO HS PRN 09/28/20 [History] HYDROcodone/APAP 7.5-325MG [[place] 7.5-325] 1 - 2 tab PO Q6H PRN #32 tab 09/29/20 [Rx] Sennosides [Senokot] 2 tab PO DAILY PRN #60 tablet 09/29/20 [Rx] Follow up Appointment(s)/Referral(s): Grabiel Sullivan MD [Primary Care Provider] - 1-2 days (patient will have to make own appt.) Agapito Rosa DO [Doctor of Osteopathic Medicine] - 10/06/20 3:00 pm Activity/Diet/Wound Care/Special Instructions: Strictly nonweightbearing to the left lower extremity with splint or equalizer boot. Do not get splint wet. Rest, ice and elevate for swelling. Please take medications as prescribed. Please follow-up with [facility] in one week and call with any questions or concerns, . Discharge Disposition: HOME SELF-CARE
--- NOTE | 2020-09-29 18:59 | P.PN ---
Subjective Progress Note Date: 09/29/20 (delayed charting seen at 1130) Principal diagnosis: fall Patient is a 80-year-old male with a history of A. fib on Eliquis, recent percutaneous intervention with drug-eluting stent, and pancreatic cancer in remission who came to the hospital after sustaining a fall from a 6 foot ladder. He was admitted secondary to impacted calcaneal fracture. Patient seen and examined at bedside. He continues to complain of left heel pain, it is manageable when he has not been walking, he denies any chest pain, shortness breath, nausea, or vomiting. General: non toxic, no distress, appears at stated age Derm: warm, dry Head: atraumatic, normocephalic, symmetric Eyes: EOMI, no lid lag, anicteric sclera Mouth: no lip lesion, mucus membranes moist Cardiovascular: S1S2 reg, no murmur, positive posterior tibial pulse bilateral, Lungs: CTA bilateral, no rhonchi, no rales , no accessory muscle use Abdominal: soft, nontender to palpation, no guarding, no appreciable organomegaly Ext: no gross muscle atrophy, edema left foot with mild bruising left heel, no contractures Neuro: CN II-XI grossly intact, no focal neuro deficits Psych: Alert, oriented, appropriate affect Patient is a 72-year-old male admitted for left calcaneal fracture after a fall from a 6 foot ladder Paroxysmal atrial fibrillation -Continue with Eliquis Coronary artery disease status post recent PCI -Cardiology recommendations appreciated, patient must maintain Plavix but could hold Eliquis if needed for surgery Hypertension, controlled -Continue current regimen Leukocytosis -Suspect reactive Acute blood loss anemia -Suspect secondary to fracture -Outpatient follow-up Lactic acidosis, resolved Objective - Vital Signs Vital signs: Vital Signs Temp 97.9 F 09/29/20 12:58 Pulse 69 09/29/20 12:58 Resp 18 09/29/20 12:58 BP 187/73 09/29/20 12:58 Pulse Ox 98 09/29/20 12:58 Intake & Output 09/28/20 09/29/20 09/29/20 18:59 06:59 18:59 Output Total 400 Balance -400 Weight 68.039 kg 68.039 kg Output: Urine 400 Other: Voiding Method Urinal # Voids 2 - Labs CBC & Chem 7: 09/29/20 05:57 09/29/20 05:57 Labs: Abnormal Lab Results - Last 24 Hours (Table) 09/28/20 09/28/20 09/29/20 Range/Units 20:24 20:24 05:57 WBC 11.57 H (4.50-10.00) X 10*3/uL RBC 3.72 L (4.40-5.60) X 10*6/uL Hgb 12.6 L (13.0-17.0) g/dL Hct 38.1 L (39.6-50.0) % MCV 102.4 H (80.0-97.0) fL MCH 33.9 H (27.0-32.0) pg Monocytes # 1.79 H (0.20-1.00) X 10*3/uL Glucose (70-110) mg/dL POC Glucose (mg/dL) (75-99) mg/dL Calcium (8.7-10.3) mg/dL Urine Blood Small H (Negative) Urine Opiates Screen Detected H (NotDetected) 09/29/20 09/29/20 09/29/20 Range/Units 05:57 08:28 12:22 WBC (4.50-10.00) X 10*3/uL RBC (4.40-5.60) X 10*6/uL Hgb (13.0-17.0) g/dL Hct (39.6-50.0) % MCV (80.0-97.0) fL MCH (27.0-32.0) pg Monocytes # (0.20-1.00) X 10*3/uL Glucose 139 H (70-110) mg/dL POC Glucose (mg/dL) 159 H 122 H (75-99) mg/dL Calcium 8.6 L (8.7-10.3) mg/dL Urine Blood (Negative) Urine Opiates Screen (NotDetected)
[2020-09-29] MEDS ORDERED: ATORVASTATIN 40 MG TAB PO SCH (21:00)
[2020-09-29] MEDS ORDERED: DONEPEZIL 5 MG TAB PO SCH (21:00)
== END 2020-09-29 18:26 | disposition home or self-care (01) ==
LOC: EC 15:58 → 6NMEDSUR 21:00 → 5NMEDONC 09-29 06:10
PROVIDERS: ADMIT Orthopaedic Surgery; ATTEND Orthopaedic Surgery
DX: S92.002A Unspecified fracture of left calcaneus, initial encounter for closed fracture (principal); S50.812A Abrasion of left forearm, initial encounter; S30.811A Abrasion of abdominal wall, initial encounter; E87.2 Acidosis; E78.5 Hyperlipidemia, unspecified; I10 Essential (primary) hypertension; I48.0 Paroxysmal atrial fibrillation; I25.10 Atherosclerotic heart disease of native coronary artery without angina pectoris; F03.90 Unspecified dementia, unspecified severity, without behavioral disturbance, psychotic disturbance, mood disturbance, and anxiety; M19.90 Unspecified osteoarthritis, unspecified site; I44.4 Left anterior fascicular block; Z20.822 Contact with and (suspected) exposure to COVID-19; Z79.02 Long term (current) use of antithrombotics/antiplatelets; Z79.01 Long term (current) use of anticoagulants; Z79.84 Long term (current) use of oral hypoglycemic drugs; Z79.82 Long term (current) use of aspirin; Z79.899 Other long term (current) drug therapy; Z23 Encounter for immunization; W11.XXXA Fall on and from ladder, initial encounter; Y92.008 Other place in unspecified non-institutional (private) residence as the place of occurrence of the external cause; Z85.07 Personal history of malignant neoplasm of pancreas; I25.2 Old myocardial infarction; Z95.5 Presence of coronary angioplasty implant and graft; Z87.891 Personal history of nicotine dependence; Z98.890 Other specified postprocedural states; Z92.21 Personal history of antineoplastic chemotherapy; Z80.8 Family history of malignant neoplasm of other organs or systems; Z80.3 Family history of malignant neoplasm of breast
CPT/HCPCS: 51701 ×2; 90471 ×2; 96374 ×2; 96375 ×2; 99285 ×2; 96376 ×2; 36415; 93005; 97162; 86900; 86901; 80053; 80048; 83605; 84484; 85025 ×2; 85610; 85730; 86850; 81001; 80306; 87636; 73630; 72170; 71045; 72125; 70450; 74176; 90715; G0378 ×3; G0480; S0138; J2270; J1170 ×3; 80320

== ENCOUNTER → 2020-11-25 | Outpatient (CLI) | payer MEDICARE | END | disposition home or self-care (01) | LOC: LABWHC1 09:13 | PROVIDERS: ATTEND Urology | DX: N40.1 Benign prostatic hyperplasia with lower urinary tract symptoms (principal) | CPT/HCPCS: 36415; 84153 ==

== ENCOUNTER → 2021-02-24 | Outpatient (CLI) | payer MEDICARE ==
--- NOTE | 2021-02-24 22:41 | CT ---
EXAMINATION TYPE: CT abdomen pelvis w con DATE OF EXAM: 02/24/2021 COMPARISON: 09/28/2020 INDICATION: c/o diarrhea, hx of pancreatic ca DLP: 428.5 mGycm, Automated exposure control for dose reduction was used. CONTRAST: 80cc mL of Isovue 300. Study performed with Oral Contrast TECHNIQUE: Axial images were obtained from above the diaphragm to the pubic rami in the axial plane a t 5 mm thick sections. Reconstructed images are reviewed on the computer in the coronal plane. FINDINGS: Limited CT sections are obtained the lung bases. The lung bases are clear. CT ABDOMEN: Liver: Multiple hypodense lesions are scattered throughout the liver. These have low-density and can be compatible with hepatic cysts. The largest is in the posterior right mid lobe liver measuring 9 cm Spleen: Absent Pancreas: Patient's reported pancreatic cancer is not identified. There appears to be resection of th e tail of the pancreas. Adrenal glands: The adrenal glands are normal. Gallbladder: Surgically absent Kidneys: No masses are evident. No hydronephrosis is present. No cysts are present. Delayed images were obtained through the kidneys, which remain unremarkable. Aorta: Vascular calcification is within the aorta. Greatest transverse dimension of the mid abdomina l aorta is 2.7 cm. This terminates above the bifurcation. Inferior vena cava: Normal. CT PELVIS: Loops of bowel within the abdomen and pelvis are normal. Scattered diverticula within the sigmoid co amy There are loops of bowel which are incompletely distended or lack oral contrast limiting their evaluation. Appendix: Not identified. No dilated tubular structures or inflammatory changes are evident. Urinary bladder: Decompressed. This has a markedly thickened wall. This appears to be an interval maddie nge. Additional evaluation is recommended. Consider cystitis. Genitourinary structures: Prostate is enlarged and contains calcification. Osseous structures: No suspicious lytic or sclerotic lesions. There is a right hip prosthesis causing beam hardening artifact. IMPRESSIONS: 1. No suspicious changes suggest recurrent or metastatic pancreatic cancer. 2. Multiple hepatic cysts. 3. Mild fusiform prominence of the mid abdominal aorta. 4. Diverticulosis within the sigmoid colon without acute diverticulitis. 5. Markedly thickened urinary bladder wall. Correlate for cystitis. Other etiologies are not excluded . This is an interval change from September 28, 2020.
== END | disposition home or self-care (01) ==
LOC: RADCTMAIN 14:53
PROVIDERS: ATTEND Internal Medicine Hematology & Oncology
DX: K76.89 Other specified diseases of liver (principal); K57.30 Diverticulosis of large intestine without perforation or abscess without bleeding
CPT/HCPCS: 82565; 84520; 74177; 36415; Q9967

== ENCOUNTER 2021-03-05 13:14 | Observation (INO) | payer MEDICARE ==
[2021-03-05] MEDS ORDERED: ASPIRIN 81 MG PO STA (13:29)
[2021-03-05] MEDS ORDERED: NITROGLYCERIN SL TABS 0.4 MG TAB SUBLINGUAL STA (13:34)
--- NOTE | 2021-03-05 13:36 | ED ---
Chest Pain HPI - General Chief Complaint: Chest Pain Stated Complaint: Chest Pains Time Seen by Provider: 03/05/21 13:28 Source: patient, RN notes reviewed Mode of arrival: wheelchair Limitations: no limitations - History of Present Illness Initial Comments: 80-year-old male who presents with complaints of midsternal chest pain is been going on and off for last several days starting yesterday would not go away currently is well 5/10 severity no nausea vomiting no fever chills or sweats he does have some shortness of breath however with it. He was seen by his doctor today and sent here for further evaluation. MD Complaint: chest pain - Related Data Home Medications Medication Instructions Recorded Confirmed Clopidogrel [Plavix] 75 mg PO DAILY 04/03/19 09/28/20 Dutasteride 0.5 mg PO DAILY 04/03/19 09/28/20 Lovastatin [Mevacor] 20 mg PO DAILY 04/03/19 09/28/20 Metoprolol Succinate [Toprol XL] 25 mg PO DAILY 04/03/19 09/28/20 Tamsulosin [Flomax] 0.4 mg PO PC-SUPPER 04/03/19 09/28/20 metFORMIN HCL [Glucophage] 500 mg PO BID 04/03/19 09/28/20 Acetaminophen [Tylenol Extra 500 mg PO DAILY PRN 09/28/20 09/28/20 Strength] Apixaban [Eliquis] 5 mg PO BID 09/28/20 09/28/20 Donepezil HCl [Aricept] 5 mg PO HS 09/28/20 09/28/20 Losartan Potassium 100 mg PO DAILY 09/28/20 09/28/20 Rosuvastatin [Crestor] 20 mg PO HS 09/28/20 09/28/20 Zolpidem Tartrate [Ambien] 10 mg PO HS PRN 09/28/20 09/28/20 amLODIPine [Norvasc] 5 mg PO DAILY 09/28/20 09/28/20 hydrOXYzine HCL [Atarax] 25 - 50 mg PO HS PRN 09/28/20 09/28/20 Previous Rx's Medication Instructions Recorded HYDROcodone/APAP 7.5-325MG [[place] 1 - 2 tab PO Q6H PRN #32 tab 09/29/20 7.5-325] Sennosides [Senokot] 2 tab PO DAILY PRN #60 tablet 09/29/20 Allergies Allergy/AdvReac Type Severity Reaction Status Date / Time No Known Allergies Allergy Verified 03/05/21 13:26 Review of Systems ROS Statement: Those systems with pertinent positive or pertinent negative responses have been documented in the HPI. ROS Other: All systems not noted in ROS Statement are negative. EKG Findings - EKG Results: EKG: interpreted by REESE, sinus rhythm (Sinus bradycardia 48428 QRS duration 104 QT since QTC 440/420 that anterior fascicular block pattern evidence of LVH consistent with the one sent from the office.) Past Medical History Past Medical History: Atrial Fibrillation, Cancer, Chest Pain / Angina, Hyperlipidemia, Hypertension, Myocardial Infarction ([place]) Additional Past Medical History / Comment(s): pancreatic cancer Last Myocardial Infarction Date:: 2000 History of Any Multi-Drug Resistant Organisms: None Reported Past Surgical History: Back Surgery, Heart Catheterization, Heart Catheterization With Stent, Hernia Repair, Orthopedic Surgery Additional Past Surgical History / Comment(s): pancrearic resection, right hip, states they have had 6 cardiac stents Past Anesthesia/Blood Transfusion Reactions: No Reported Reaction Date of Last Stent Placement:: 09/14 Past Psychological History: No Psychological Hx Reported Smoking Status: Former smoker Past Alcohol Use History: Occasional Past Drug Use History: None Reported - Past Family History Father Family Medical History: Cancer Additional Family Medical History / Comment(s): Skin cancer Mother Family Medical History: Cancer Additional Family Medical History / Comment(s): Breast cancer family Family Medical History: No Reported History General Exam - General Exam Comments Initial Comments: This is a well-developed well-nourished awake alert oriented 3 male Limitations: no limitations General appearance: alert, anxious Head exam: Present: atraumatic, normocephalic, normal inspection Eye exam: Present: normal appearance, PERRL, EOMI. Absent: scleral icterus, conjunctival injection, periorbital swelling ENT exam: Present: normal exam, mucous membranes moist Neck exam: Present: normal inspection. Absent: tenderness, meningismus, lymphadenopathy Respiratory exam: Present: normal lung sounds bilaterally. Absent: respiratory distress, wheezes, rales, rhonchi, stridor Cardiovascular Exam: Present: regular rate, bradycardia, normal heart sounds. Absent: systolic murmur, diastolic murmur, rubs, gallop, clicks GI/Abdominal exam: Present: soft, normal bowel sounds. Absent: distended, tenderness, guarding, rebound, rigid Extremities exam: Present: normal inspection, full ROM, normal capillary refill. Absent: tenderness, pedal edema, joint swelling, calf tenderness Back exam: Present: normal inspection Neurological exam: Present: alert, oriented X3, CN II-XII intact Psychiatric exam: Present: normal affect, normal mood Skin exam: Present: warm, dry, intact, normal color. Absent: rash Course Vital Signs 03/05/21 03/05/21 03/05/21 13:23 13:50 14:00 Temperature 98.4 F Pulse Rate 53 L 53 L 59 L Respiratory 16 18 18 Rate Blood Pressure 195/85 180/103 151/81 O2 Sat by Pulse 98 98 97 Oximetry - Reevaluation(s) Reevaluation #1: 03/05/21 14:14 The patient did get relief from his pain after a glycerin. Critical Care Time Critical Care Time: Yes Total Critical Care Time: 31 Critical Care Time: Critical care time includes initial presentation with history physical labs x- rays reevaluation patient response to therapy review of old charting discussed with the main physician admission orders and documentation of the above Disposition Clinical Impression: Chest pain, Unstable angina Disposition: ADMITTED IP TO THIS HOSP Condition: Fair Referrals: Grabiel Sullivan MD [Primary Care Provider] - 1-2 days
[2021-03-05 13:55] LABS: Basophils % (A) 0 %; Eosinophils # (A) 0.1 k/uL (0-0.7); Eosinophils % (A) 1 %; HCT 45.6 % (39.0-53.0); HGB 15.2 gm/dL (13.0-17.5); Lymphocytes # (A) 3.1 k/uL (1.0-4.8); Lymphocytes % (A) 27 %; MCH 35.5 pg (25.0-35.0); MCHC 33.2 g/dL (31.0-37.0); MCV 106.8 fL (80.0-100.0); Macrocytosis Moderate; Mean Platelet Volume 7.7; Monocytes % (A) 9 %; Neutrophils # (A) 6.8 k/uL (1.3-7.7); Neutrophils % (A) 60 %; Platelet Count 267 k/uL (150-450); RBC 4.27 m/uL (4.30-5.90); RDW 12.5 % (11.5-15.5); WBC 11.3 k/uL (3.8-10.6)
[2021-03-05 14:08] LABS: Partial Thromboplastin Time 26.8 sec (22.0-30.0); Prothrombin Time 10.8 sec (9.0-12.0)
[2021-03-05 14:12] LABS: ALT 16 U/L (4-49); AST 27 U/L (17-59); African American GFR (CKD) >90 (>60 ml/min/1.73 sqM); Albumin 4.1 g/dL (3.5-5.0); Alkaline Phosphatase 63 U/L (38-126); Anion Gap 9 mmol/L; Calcium 10.2 mg/dL (8.4-10.2); Carbon Dioxide 30 mmol/L (22-30); Chloride 99 mmol/L (98-107); Glucose 117 mg/dL (74-99); Magnesium 1.8 mg/dL (1.6-2.3); Non-African American GFR(CKD) 83 (>60 ml/min/1.73 sqM); Potassium 4.1 mmol/L (3.5-5.1); Sodium 138 mmol/L (137-145); Total Protein 7.2 g/dL (6.3-8.2)
[2021-03-05 14:15] LABS: Blood Urea Nitrogen 19 mg/dL (9-20); Lipase 92 U/L (23-300)
--- NOTE | 2021-03-05 14:45 | XR ---
EXAMINATION TYPE: XR chest 2V DATE OF EXAM: 03/05/2021 COMPARISON: NONE TECHNIQUE: PA and lateral views submitted. HISTORY: Chest pain FINDINGS: The lungs are clear and there is no pneumothorax, pleural effusion, or focal pneumonia. Calcified g ranuloma right upper lobe. Arthropathy of the shoulders. No overt failure. Heart size normal. Surgica l clips in the left axilla. Hypertrophic and degenerative change of the spine. IMPRESSION: 1. No acute process.
[2021-03-05] MEDS ORDERED: NITROGLYCERIN SL TABS 0.4 MG TAB SUBLINGUAL PRN (14:55)
[2021-03-05] MEDS ORDERED: HEPARIN SODIUM 1,000 UN/ML (10ML VL) IV ONE (14:55)
[2021-03-05] MEDS ORDERED: SENNOSIDES 8.6 MG TAB PO PRN (14:58)
[2021-03-05] MEDS ORDERED: ZOLPIDEM 10 MG TAB PO PRN (14:58)
[2021-03-05] MEDS ORDERED: SODIUM CHLORIDE 0.9% 1,000 ML IV SCH (15:00)
[2021-03-05] MEDS ORDERED: HEPARIN SOD,PORK IN 0.45% NACL 25,000 UNIT in 0.45% NACL 1 250ML.BAG IV SCH (15:00)
[2021-03-05] MEDS ORDERED: hydrOXYzine HCL 25 MG TAB PO PRN (16:44)
--- NOTE | 2021-03-05 16:47 | P.HPIM ---
History of Present Illness H&P Date: 03/05/21 This is a 80 -year-old male with past medical history noted below significant for coronary artery disease with multiple stent placement in the past most recently in June 2020 at [facility] that presented to the ER with chest pressure. Patient said that for the past 3 days he has been having intermittent pressure feeding in his left chest associated with dyspnea on exertion. Patient told me that he was not actual pain but only pressure. He went and saw his PCP in the office and a 12-lead EKG was normal according to patient report. He then went home and started having symptoms again so he decided to come to the emergency room. In the ER, patient was given nitroglycerin some resolution of his symptoms. He was chest pain-free when I saw him. The placed on observation for cardiology evaluation. Review of Systems Review of system: 14 points review of systems were obtained and were negative except to what were mentioned in the HPI. Past Medical History Past Medical History: Atrial Fibrillation, Cancer, Chest Pain / Angina, Hyperlipidemia, Hypertension, Myocardial Infarction ([place]) Additional Past Medical History / Comment(s): pancreatic cancer Last Myocardial Infarction Date:: 2000 History of Any Multi-Drug Resistant Organisms: None Reported Past Surgical History: Back Surgery, Heart Catheterization, Heart Catheterization With Stent, Hernia Repair, Orthopedic Surgery Additional Past Surgical History / Comment(s): pancrearic resection, right hip, states they have had 6 cardiac stents Past Anesthesia/Blood Transfusion Reactions: No Reported Reaction Date of Last Stent Placement:: 09/14 Past Psychological History: No Psychological Hx Reported Smoking Status: Former smoker Past Alcohol Use History: Occasional Past Drug Use History: None Reported - Past Family History Father Family Medical History: Cancer Additional Family Medical History / Comment(s): Skin cancer Mother Family Medical History: Cancer Additional Family Medical History / Comment(s): Breast cancer family Family Medical History: No Reported History Medications and Allergies Home Medications Medication Instructions Recorded Confirmed Type Dutasteride 0.5 mg PO DAILY 04/03/19 03/05/21 History Lovastatin [Mevacor] 20 mg PO DAILY 04/03/19 03/05/21 History Metoprolol Succinate [Toprol XL] 12.5 mg PO DAILY 04/03/19 03/05/21 History metFORMIN HCL [Glucophage] 500 mg PO BID 04/03/19 03/05/21 History Acetaminophen [Tylenol Extra 500 mg PO DAILY PRN 09/28/20 03/05/21 History Strength] Apixaban [Eliquis] 5 mg PO BID 09/28/20 03/05/21 History Donepezil HCl [Aricept] 5 mg PO HS 09/28/20 03/05/21 History Losartan Potassium 100 mg PO DAILY 09/28/20 03/05/21 History Rosuvastatin [Crestor] 20 mg PO HS 09/28/20 03/05/21 History Zolpidem Tartrate [Ambien] 10 mg PO HS PRN 09/28/20 03/05/21 History amLODIPine [Norvasc] 5 mg PO DAILY 09/28/20 03/05/21 History hydrOXYzine HCL [Atarax] 25 - 50 mg PO HS PRN 09/28/20 03/05/21 History Azelastine HCl 2 spr EA NOSTRIL BID PRN 03/05/21 03/05/21 History Cyanocobalamin [Vitamin B-12 1,000 mcg SQ Q28D 03/05/21 03/05/21 History Injection] Lipase/Protease/Amylase [Hayden Wahl 24,000 units PO AC-TID 03/05/21 03/05/21 History 24,000 Units Capsule] Allergies Allergy/AdvReac Type Severity Reaction Status Date / Time No Known Allergies Allergy Verified 03/05/21 15:43 Physical Exam Vitals: Vital Signs Temp Pulse Resp BP Pulse Ox 03/05/21 16:09 52 L 18 150/74 98 03/05/21 14:00 59 L 18 151/81 97 03/05/21 13:50 53 L 18 180/103 98 03/05/21 13:23 98.4 F 53 L 16 195/85 98 Intake and Output 03/05/21 03/05/21 03/05/21 06:59 14:59 22:59 Other: Weight 68.039 kg General: The patient is awake and alert, in no distress Eye: there is normal conjunctiva bilaterally. Neck: The neck is supple, there is no JVD. Cardiovascular: Normal S1-S2, no S3-S4, no murmurs. Respiratory: Lungs clear to auscultation bilaterally Gastrointestinal: Abdomen is soft, nontender Musculoskeletal: There is no pedal edema. Neurological:. Speech is normal. Skin: Skin is warm and dry Results CBC & Chem 7: 03/05/21 13:29 03/05/21 13:29 Labs: Abnormal Lab Results - Last 24 Hours (Table) 03/05/21 03/05/21 Range/Units 13:29 13:29 WBC 11.3 H (3.8-10.6) k/uL RBC 4.27 L (4.30-5.90) m/uL MCV 106.8 H (80.0-100.0) fL MCH 35.5 H (25.0-35.0) pg Glucose 117 H (74-99) mg/dL Total Bilirubin 2.0 H (0.2-1.3) mg/dL Assessment and Plan Assessment: 1. Chest pain, rule out unstable angina. 12-lead EKG with no acute ischemic changes. 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 Awaiting cardiology evaluation. 2. Chronic atrial fibrillation on anticoagulation with Eliquis. Currently on IV heparin started by ER staff 3. Chronic medical problems: Hypertension, hyperlipidemia, history of pancreatic cancer status post resection and chemotherapy in 2016, underlying cognitive impairment, and arthritis
[2021-03-05] MEDS ORDERED: TAMSULOSIN 0.4 MG CAP.ER.24H PO SCH (18:30)
[2021-03-05] MEDS: NITROGLYCERIN OINT 1 INCH/GM PACKET TOPICAL SCH ×2 (18:36→18:51)
[2021-03-05] MEDS: LIPASE 5,000/PROTEASE 17,000/AMYLASE 24,000 PO SCH (18:51)
[2021-03-05] MEDS ORDERED: metFORMIN 500 MG TAB PO SCH (21:00)
[2021-03-05] MEDS ORDERED: DONEPEZIL 5 MG TAB PO SCH (21:00)
[2021-03-05] MEDS ORDERED: ATORVASTATIN 40 MG TAB PO SCH (21:00)
[2021-03-06] MEDS: NITROGLYCERIN OINT 1 INCH/GM PACKET TOPICAL SCH ×3 (00:26→13:37)
[2021-03-06] MEDS ORDERED: MELATONIN 3 MG TABLET PO SCH (00:30)
[2021-03-06] MEDS ORDERED: NON FORMULARY DRUG (Lovastatin 20 MG Tab) PO SCH (09:00)
[2021-03-06] MEDS ORDERED: FINASTERIDE 5 MG TAB PO SCH (09:00)
[2021-03-06] MEDS ORDERED: LOSARTAN 50 MG TAB PO SCH (09:00)
[2021-03-06] MEDS ORDERED: METOPROLOL SUCCINATE (ER) 25 MG TAB.ER.24H PO SCH (09:00)
[2021-03-06] MEDS ORDERED: ASPIRIN 325 MG TAB PO SCH (09:00)
[2021-03-06] MEDS ORDERED: CAFFEINE CITRATE 60 MG/3 ML VIAL IV PRN (09:21)
[2021-03-06] MEDS ORDERED: REGADENOSON 0.4 MG/5 ML SYRINGE IV PRN (09:21)
[2021-03-06] MEDS ORDERED: AMINOPHYLLINE 500 MG/20 ML VIAL IV PRN (09:21)
[2021-03-06] MEDS: LIPASE 5,000/PROTEASE 17,000/AMYLASE 24,000 PO SCH ×3 (09:38→13:39)
--- NOTE | 2021-03-06 10:01 | P.CRDCN ---
History of Present Illness History of present illness: HISTORY OF PRESENTING ILLNESS This is a pleasant 80-year-old male past medical history significant for coronary artery disease status post PCI to the LAD June 2020, paroxysmal atrial fibrillation on Eliquis, hypertension, dyslipidemia, pancreatic cancer status post resection and former nicotine dependence. He follows in the office with Dr Cintron at [facility]. We have been asked to see in consultation for chest pain. He is somewhat of a poor historian. His recent recall is intact but his meterman memory is impaired. He states for the past 3 days he has been experiencing symptoms of chest pain and shortness of breath. The symptoms are intermittent and mostly related to when he goes on his daily walks. He denies associated dizziness, palpitations, nausea, vomiting or diaphoresis. Currently chest pain-free at rest. DIAGNOSTICS EKG reveals sinus bradycardia heart rate of 55 with left anterior fascicular block and no acute ST or T wave abnormalities noted. Telemetry tracings indicate sinus rhythm. Chest xray negative for an acute cardiopulmonary process. Laboratory reviewed, WBC 11.3, hemoglobin 15.2, platelets 267, d-dimer 0.26, sodium 138, potassium 4.1, creatinine 0.88, magnesium 1.8, cardiac enzymes negative 3, proBNP 187.. Current cardiac medications include Eliquis 5 mg twice a day, losartan 100 mg daily, lovastatin 20 mg daily, Toprol 12.5 mg daily, rosuvastatin 20 mg daily and amlodipine 5 mg daily. REVIEW OF SYSTEMS At the time of my exam: CONSTITUTIONAL: Denies fever or chills. CARDIOVASCULAR: Denies chest pain, shortness of breath, orthopnea, PND or palpitations. RESPIRATORY: Denies cough. GASTROINTESTINAL: Denies abdominal pain, diarrhea, constipation, nausea or vomiting. MUSCULOSKELETAL: Denies myalgias. NEUROLOGIC: Denies numbness, tingling, headache or weakness. ENDOCRINE: Denies fatigue, weight change, polydipsia or polyurina. GENITOURINARY: Denies burning, hematuria or urgency with micturation. HEMATOLOGIC: Denies history of anemia or bleeding. PHYSICAL EXAMINATION Blood pressure 142/69 heart rate 53 afebrile and maintaining oxygen saturation on room air. CONSTITUTIONAL: No apparent distress. HEENT: Head is normocephalic. Pupils are equal, round. Sclerae anicteric. Mucous membranes of the mouth are moist. No JVD. No carotid bruit. CHEST EXAMINATION: Lungs are clear to auscultation. No chest wall tenderness is noted on palpation or with deep breathing. HEART EXAMINATION: Regular rate and rhythm. S1, S2 heard. Soft systolic ejection murmur at the base, no gallops or rub. ABDOMEN: Soft, nontender. EXTREMITIES: 2+ peripheral pulses, no lower extremity edema and no calf tenderness. NEUROLOGIC EXAMINATION: Patient is awake, alert and oriented x3. ASSESSMENT Chest pain Coronary artery disease Hypertension Paroxysmal atrial fibrillation on eliquis Dyslipidemia Former nicotine dependence History of pancreatic cancer s/p resection PLAN An acute coronary event has been ruled out. Discontinue heparin infusion. Obtain 2D echocardiogram and doppler study to assess cardiac structure and funciton. Perform lexiscan stress test to assess for stress induced ischemia. Hold eliquis pending stress test results. Request records from his primary wheel truer for review. Thank you kindly for this consultation. Nurse Practitioner note has been reviewed, I agree with a documented findings and plan of care. Patient was seen and examined. Past Medical History Past Medical History: Atrial Fibrillation, Cancer, Chest Pain / Angina, Hyperlipidemia, Hypertension, Myocardial Infarction ([place]) Additional Past Medical History / Comment(s): pancreatic cancer Last Myocardial Infarction Date:: 2000 History of Any Multi-Drug Resistant Organisms: None Reported Past Surgical History: Back Surgery, Heart Catheterization, Heart Catheterization With Stent, Hernia Repair, Orthopedic Surgery Additional Past Surgical History / Comment(s): pancrearic resection, right hip, states they have had 6 cardiac stents Past Anesthesia/Blood Transfusion Reactions: No Reported Reaction Date of Last Stent Placement:: 09/14 Past Psychological History: No Psychological Hx Reported Smoking Status: Former smoker Past Alcohol Use History: Occasional Past Drug Use History: None Reported - Past Family History Father Family Medical History: Cancer Additional Family Medical History / Comment(s): Skin cancer Mother Family Medical History: Cancer Additional Family Medical History / Comment(s): Breast cancer family Family Medical History: No Reported History Medications and Allergies Home Medications Medication Instructions Recorded Confirmed Type Dutasteride 0.5 mg PO DAILY 04/03/19 03/05/21 History Lovastatin [Mevacor] 20 mg PO DAILY 04/03/19 03/05/21 History Metoprolol Succinate [Toprol XL] 12.5 mg PO DAILY 04/03/19 03/05/21 History metFORMIN HCL [Glucophage] 500 mg PO BID 04/03/19 03/05/21 History Acetaminophen [Tylenol Extra 500 mg PO DAILY PRN 09/28/20 03/05/21 History Strength] Apixaban [Eliquis] 5 mg PO BID 09/28/20 03/05/21 History Donepezil HCl [Aricept] 5 mg PO HS 09/28/20 03/05/21 History Losartan Potassium 100 mg PO DAILY 09/28/20 03/05/21 History Rosuvastatin [Crestor] 20 mg PO HS 09/28/20 03/05/21 History Zolpidem Tartrate [Ambien] 10 mg PO HS PRN 09/28/20 03/05/21 History amLODIPine [Norvasc] 5 mg PO DAILY 09/28/20 03/05/21 History hydrOXYzine HCL [Atarax] 25 - 50 mg PO HS PRN 09/28/20 03/05/21 History Azelastine HCl 2 spr EA NOSTRIL BID PRN 03/05/21 03/05/21 History Cyanocobalamin [Vitamin B-12 1,000 mcg SQ Q28D 03/05/21 03/05/21 History Injection] Lipase/Protease/Amylase [Hayden Wahl 24,000 units PO AC-TID 03/05/21 03/05/21 History 24,000 Units Capsule] Allergies Allergy/AdvReac Type Severity Reaction Status Date / Time No Known Allergies Allergy Verified 03/05/21 15:43 Physical Exam Vitals: Vital Signs Temp Pulse Pulse Resp BP BP BP 03/06/21 07:00 97.8 F 53 L 15 142/69 03/06/21 02:00 98.2 F 74 16 122/64 03/05/21 23:07 98.3 F 51 L 18 145/69 03/05/21 22:00 49 L 18 146/74 03/05/21 18:49 52 L 18 188/91 03/05/21 18:43 52 L 18 192/92 03/05/21 16:09 52 L 18 150/74 03/05/21 14:00 59 L 18 151/81 03/05/21 13:50 53 L 18 180/103 03/05/21 13:23 98.4 F 53 L 16 195/85 Pulse Ox 03/06/21 07:00 99 03/06/21 02:00 94 L 03/05/21 23:07 99 03/05/21 22:00 96 03/05/21 18:49 97 03/05/21 18:43 97 03/05/21 16:09 98 03/05/21 14:00 97 03/05/21 13:50 98 03/05/21 13:23 98 Intake and Output 03/05/21 03/06/21 03/06/21 22:59 06:59 14:59 Intake Total 95.71 Balance 95.71 Intake: Intake, IV Titration 95.71 Amount Heparin Sod,Pork in 0.45% 95.71 NaCl 25,000 unit In 0.45 % NaCl 1 250ml.bag @ 12 UNITS/KG/HR 8.165 mls/hr IV .Q24H [facility] Rx#: [id number] Other: Voiding Method Toilet Urinal # Voids 2 Weight 68.039 kg Results 03/05/21 13:29 03/05/21 13:29 Cardiac Enzymes 03/05/21 03/05/21 03/05/21 Range/Units 13:29 13:29 16:25 AST 27 (17-59) U/L Troponin I <0.012 <0.012 (0.000-0.034) ng/mL 03/05/21 Range/Units 21:08 AST (17-59) U/L Troponin I <0.012 (0.000-0.034) ng/mL Coagulation 03/05/21 03/05/21 03/06/21 Range/Units 13:29 21:08 04:26 PT 10.8 (9.0-12.0) sec APTT 26.8 81.1 H 76.6 H (22.0-30.0) sec CBC 03/05/21 Range/Units 13:29 WBC 11.3 H (3.8-10.6) k/uL RBC 4.27 L (4.30-5.90) m/uL Hgb 15.2 (13.0-17.5) gm/dL Hct 45.6 (39.0-53.0) % Plt Count 267 (150-450) k/uL Comprehensive Metabolic Panel 03/05/21 Range/Units 13:29 Sodium 138 (137-145) mmol/L Potassium 4.1 (3.5-5.1) mmol/L Chloride 99 (98-107) mmol/L Carbon Dioxide 30 (22-30) mmol/L BUN 19 (9-20) mg/dL Creatinine 0.88 (0.66-1.25) mg/dL Glucose 117 H (74-99) mg/dL Calcium 10.2 (8.4-10.2) mg/dL AST 27 (17-59) U/L ALT 16 (4-49) U/L Alkaline Phosphatase 63 (38-126) U/L Total Protein 7.2 (6.3-8.2) g/dL Albumin 4.1 (3.5-5.0) g/dL Current Medications Generic Name Dose Route Start Last Admin Trade Name Freq PRN Reason Stop Dose Admin Lipase/Protease/Amylase 4 each 03/05/21 17:30 03/05/21 18:51 Lipase 5,000/Protease 17,000/Amylase 24,000 PO 4 each AC-TID STEVE Administration Aspirin 325 mg 03/06/21 09:00 Aspirin 325 Mg Tab PO DAILY STEVE Atorvastatin Calcium 40 mg 03/05/21 21:00 03/05/21 22:55 Atorvastatin 40 Mg Tab PO 40 mg HS STEVE Administration Donepezil HCl 5 mg 03/05/21 21:00 03/05/21 22:55 Donepezil 5 Mg Tab PO 5 mg HS STEVE Administration Finasteride 5 mg 03/06/21 09:00 Finasteride 5 Mg Tab PO DAILY STEVE Hydroxyzine HCl 25 mg 03/05/21 16:44 Hydroxyzine Hcl 25 Mg Tab PO HS PRN Insomnia Sodium Chloride 1,000 mls @ 20 mls/hr 03/05/21 15:00 03/05/21 15:17 Saline 0.9% IV 20 mls/hr .Q24H STEVE Administration Heparin Sodium/Sodium Chloride 250 mls @ 8.165 mls/hr 03/05/21 15:00 03/06/21 05:23 25,000 unit/ Sodium Chloride IV 8 units/kg/hr .Q24H STEVE 5.443 mls/hr Titration Protocol 12 UNITS/KG/HR Losartan Potassium 100 mg 03/06/21 09:00 Losartan 50 Mg Tab PO DAILY STEVE Melatonin 3 mg 03/06/21 00:30 03/06/21 00:30 Melatonin 3 Mg Tablet PO 3 mg HS STEVE Administration Metoprolol Succinate 25 mg 03/06/21 09:00 Metoprolol Succinate (Er) 25 Mg Tab.Er.24h PO DAILY [facility] Nitroglycerin 0.4 mg 03/05/21 14:55 Nitroglycerin Sl Tabs 0.4 Mg Tab SUBLINGUAL Q5M PRN Chest Pain Nitroglycerin 1 inch 03/05/21 18:00 03/06/21 05:30 Nitroglycerin Oint 1 Inch/Gm Packet TOPICAL Not Given Q6HR [facility] Senna 8.6 mg 03/05/21 14:58 Sennosides 8.6 Mg Tab PO DAILY PRN Constipation Tamsulosin HCl 0.4 mg 03/05/21 18:30 03/05/21 18:42 Tamsulosin 0.4 Mg Cap.Er.24h PO 0.4 mg PC-SUPPER STEVE Administration Zolpidem Tartrate 10 mg 03/05/21 14:58 Zolpidem 10 Mg Tab PO HS PRN Insomnia Intake and Output 03/05/21 03/06/21 03/06/21 22:59 06:59 14:59 Intake Total 95.71 Balance 95.71 Intake: Intake, IV Titration 95.71 Amount Heparin Sod,Pork in 0.45% 95.71 NaCl 25,000 unit In 0.45 % NaCl 1 250ml.bag @ 12 UNITS/KG/HR 8.165 mls/hr IV .Q24H [facility] Rx#: [id number] Other: Voiding Method Toilet Urinal # Voids 2 Weight 68.039 kg 03/05/21 13:29 03/05/21 13:29
--- NOTE | 2021-03-06 11:19 | ECHOF ---
Referral Reason: MEASUREMENTS -------- HEIGHT: 172.7 cm WEIGHT: 68.0 kg BP: 142/69 RVIDd: 3.8 cm (< 3.3) IVSd: 1.2 cm (0.6 - 1.1) LVIDd: 4.8 cm (3.9 - 5.3) LVPWd: 1.0 cm (0.6 - 1.1) IVSs: 1.7 cm LVIDs: 2.6 cm LVPWs: 1.8 cm LA Diam: 3.8 cm (2.7 - 3.8) LAESV Index (A-L): 32.11 ml/m Ao Diam: 3.6 cm (2.0 - 3.7) AV Cusp: 1.5 cm (1.5 - 2.6) MV EXCURSION: 15.856 mm (> 18.000) MV EF SLOPE: 69 mm/s (70 - 150) EPSS: 0.5 cm MV E Willie: 0.89 m/s MV DecT: 285 ms MV A Willie: 1.07 m/s MV E/A Ratio: 0.83 AV maxP.70 mmHg AV meanP.63 mmHg AR PHT: 591 ms RAP: 5.00 mmHg RVSP: 25.76 mmHg FINDINGS -------- Sinus rhythm. This was a technically good study. The left ventricular size is normal. There is borderline concentric left ventricular hypertrophy. Overall left ventricular systolic function is normal with, an EF between 60 - 65 %. The right ventricle is mild to moderately enlarged. LA is midly dilated 29-33ml/m2. The right atrium is normal in size. Interatrial and interventricular septum intact. There is moderate aortic valve sclerosis. There is mild aortic regurgitation. There is moderate a ortic stenosis present. Peak/mean gradient across the Aortic Valve is 46.70mmHg / 24.63mmHg. The mitral valve leaflets are mildly thickened. Mild mitral annular calcification present. Mild m itral regurgitation is present. Mild tricuspid regurgitation present. Right ventricular systolic pressure is normal at < 35 mmHg. Trace/mild (physiologic) pulmonic regurgitation. The aortic root size is normal. Normal inferior vena cava with normal inspiratory collapse consistent with estimated right atrial pre ssure of 5 mmHg. There is no pericardial effusion. CONCLUSIONS -------- 1. The left ventricular size is normal. 2. There is borderline concentric left ventricular hypertrophy. 3. Overall left ventricular systolic function is normal with, an EF between 60 - 65 %. 4. The right ventricle is mild to moderately enlarged. 5. LA is midly dilated 29-33ml/m2. 6. There is moderate aortic valve sclerosis. 7. There is mild aortic regurgitation. 8. There is moderate aortic stenosis present. 9. Peak/mean gradient across the Aortic Valve is 46.70mmHg / 24.63mmHg. 10. The mitral valve leaflets are mildly thickened. 11. Mild mitral annular calcification present. 12. Mild mitral regurgitation is present. 13. Mild tricuspid regurgitation present. 14. Trace/mild (physiologic) pulmonic regurgitation. 15. There is no pericardial effusion. EVALUATION ASSISTANT: CLEOPATRA Rea
--- NOTE | 2021-03-06 14:05 | NM ---
EXAMINATION TYPE: NM stress lexiscan cardiolite DATE OF EXAM: 03/06/2021 COMPARISON: NONE HISTORY: Chest pain TECHNIQUE: After the intravenous administration of 9.9 mCi Tc 99m Sestamibi - Cardiolite resting SPE CT images acquired 55 minutes post injection. The patient received 0.4mg Lexiscan, 26.3 mCi Tc 99m Sestamibi - Stress images obtained [address] injection FINDINGS: Review of stress and rest SPECT images demonstrates no distinct perfusion abnormality. Gated analysi s shows normal wall motion with an estimated left ventricular ejection fraction of 50 %. Gadolinium a ctivity is present on stress and rest images. IMPRESSION: No scintigraphic evidence for reversible ischemia.
[2021-03-06 14:15] VITALS: TEMP 98.1
[2021-03-06 15:37] LABS: Chol/HDL Ratio 2.75 Ratio; HDL Cholesterol 59.3 mg/dL (40.00-60.00); LDL Cholesterol,Calculated 74.5 mg/dL (0.0-131.0); VLDL Calculation 29.2 mg/dL (5.00-40.00)
--- NOTE | 2021-03-06 15:53 | P.DS ---
Providers Date of admission: 03/05/21 14:35 Expected date of discharge: 03/06/21 Attending physician: Disha Dove MD Consults: 03/05/21 14:55 Consult Physician Urgent Consulting Provider: Candido [place] Consult Reason/Comments: Chest pain, unstable angina Do you want consulting provider notified?: Yes Primary care physician: Grabiel Chanel [facility] Course: This is a 80-year-old male with complex past medical history noted below who presented to the emergency room with chest pain 1. Chest pain, rule out unstable angina. 12-lead EKG with no acute ischemic changes. Serial troponin negative 3 sets. Patient was seen and evaluated by cardiology. He underwent Lexiscan stress test that was negative. He was cleared for discharge home. 2. Chronic atrial fibrillation on anticoagulation with Eliquis. 3. Chronic medical problems: Hypertension, hyperlipidemia, history of pancreatic cancer status post resection and chemotherapy in 2016, underlying cognitive impairment, and arthritis Patient was seen and evaluated on the day of discharge. 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 Physical exam General: The patient is awake and alert, in no distress Eye: there is normal conjunctiva bilaterally. Neck: The neck is supple, there is no JVD. Cardiovascular: Normal S1-S2, no S3-S4, no murmurs. Respiratory: Lungs clear to auscultation bilaterally Gastrointestinal: Abdomen is soft, nontender Musculoskeletal: There is no pedal edema. Neurological:. Speech is normal. Skin: Skin is warm and dry Patient Condition at Discharge: Fair Plan - Discharge Summary Discharge Rx Participant: No New Discharge Prescriptions: Continue metFORMIN HCL [Glucophage] 500 mg PO BID Metoprolol Succinate [Toprol XL] 12.5 mg PO DAILY Lovastatin [Mevacor] 20 mg PO DAILY Dutasteride 0.5 mg PO DAILY hydrOXYzine HCL [Atarax] 25 - 50 mg PO HS PRN PRN Reason: Insomnia Zolpidem Tartrate [Ambien] 10 mg PO HS PRN PRN Reason: Insomnia Acetaminophen [Tylenol Extra Strength] 500 mg PO DAILY PRN PRN Reason: Pain amLODIPine [Norvasc] 5 mg PO DAILY Rosuvastatin [Crestor] 20 mg PO HS Donepezil HCl [Aricept] 5 mg PO HS Cyanocobalamin [Vitamin B-12 Injection] 1,000 mcg SQ Q28D Lipase/Protease/Amylase [Hayden Wahl 24,000 Units Capsule] 24,000 units PO AC- TID Apixaban [Eliquis] 5 mg PO BID Losartan Potassium 100 mg PO DAILY Azelastine HCl 2 spr EA NOSTRIL BID PRN PRN Reason: Allergy Symptoms Discharge Medication List Dutasteride 0.5 mg PO DAILY 04/03/19 [History] Lovastatin [Mevacor] 20 mg PO DAILY 04/03/19 [History] Metoprolol Succinate [Toprol XL] 12.5 mg PO DAILY 04/03/19 [History] metFORMIN HCL [Glucophage] 500 mg PO BID 04/03/19 [History] Acetaminophen [Tylenol Extra Strength] 500 mg PO DAILY PRN 09/28/20 [History] Apixaban [Eliquis] 5 mg PO BID 09/28/20 [History] Donepezil HCl [Aricept] 5 mg PO HS 09/28/20 [History] Losartan Potassium 100 mg PO DAILY 09/28/20 [History] Rosuvastatin [Crestor] 20 mg PO HS 09/28/20 [History] Zolpidem Tartrate [Ambien] 10 mg PO HS PRN 09/28/20 [History] amLODIPine [Norvasc] 5 mg PO DAILY 09/28/20 [History] hydrOXYzine HCL [Atarax] 25 - 50 mg PO HS PRN 09/28/20 [History] Azelastine HCl 2 spr EA NOSTRIL BID PRN 03/05/21 [History] Cyanocobalamin [Vitamin B-12 Injection] 1,000 mcg SQ Q28D 03/05/21 [History] Lipase/Protease/Amylase [Hayden Wahl 24,000 Units Capsule] 24,000 units PO AC-TID 03/05/21 [History] Follow up Appointment(s)/Referral(s): Grabiel Sullivan MD [Primary Care Provider] - 03/10/21 12:45 pm [facility] [NON-STAFF] - 1 Week (Dr Easton, Retirement Sales Consultant. [facility] [phone] Please call when office is open to make appointment) Patient Instructions/Handouts: Chest Pain (DC), Heart Healthy Diet (DC)
[2021-03-06 16:44] VITALS: BP 159/76; PULSE 48; RESP 16
--- NOTE | 2021-03-06 17:01 | P.STRESS ---
- Stress Test Note Stress Test Results/Findings: Exam Performed: NM stress lexiscan cardiolite Exam Date: 03/06/21 Reason for Exam: Chest Pain Height: 5 ft 8 in Weight: 68.039 kg Protocol: Lexiscan Stage: na Duration of Exercise: na Resting Heart Rate: 51 Resting Blood Pressure: 159/79 Maximum Achieved Heart Rate: 104 Maximum Achieved Blood Pressure: 159/79 85% PMHR: 121 100% PMHR: 142 METS: na Technologist Comment: Stress Test Results/Findings: This is a 80-year-old gentleman with history of hypertension and diabetes and previous stent placement being evaluated for symptoms of chest pain. Stress data: Baseline EKG showed sinus rhythm with normal [place] interval and QRS duration. Blood pressure at rest is 159/79 with a pulse rate of 51. A standard dose of Lexiscan was infused. EKG taken during and after infusion did not reveal any significant changes from the baseline. Final impression: #1. Negative Lexiscan stress test #2. Report on the nuclear images to be provided by the radiologist.
[2021-03-07] MEDS ORDERED: ASPIRIN 81 MG PO SCH (09:00)
--- NOTE | 2021-03-09 08:59 | ECHOS ---
Stress Test Results/Findings: Exam Performed: NM stress lexiscan cardiolite Exam Date: 03/06/21 Reason for Exam: Chest Pain Height: 5 ft 8 in Weight: 68.039 kg Protocol: Lexiscan Stage: na Duration of Exercise: na Resting Heart Rate: 51 Resting Blood Pressure: 159/79 Maximum Achieved Heart Rate: 104 Maximum Achieved Blood Pressure: 159/79 85% PMHR: 121 100% PMHR: 142 METS: na Technologist Comment: Stress Test Results/Findings: This is a 80-year-old gentleman with history of hypertension and diabetes and previous stent placement being evaluated for symptoms of chest pain. Stress data: Baseline EKG showed sinus rhythm with normal [place] interval and QRS duration. Blood pressure at rest is 159/79 with a pulse rate of 51. A standard dose of Lexiscan was infused. EKG taken during and after infusion did not reveal any significant changes from the baseline. Final impression: #1. Negative Lexiscan stress test #2. Report on the nuclear images to be provided by the radiologist. RON
== END 2021-03-06 17:26 | disposition home or self-care (01) ==
LOC: EC 13:14 → 6NMEDSUR 14:35
PROVIDERS: ADMIT Internal Medicine; ATTEND Internal Medicine
DX: R07.2 Precordial pain (principal); I48.20 Chronic atrial fibrillation, unspecified; I10 Essential (primary) hypertension; R00.1 Bradycardia, unspecified; E78.5 Hyperlipidemia, unspecified; I25.2 Old myocardial infarction; I25.10 Atherosclerotic heart disease of native coronary artery without angina pectoris; R41.89 Other symptoms and signs involving cognitive functions and awareness; Z20.822 Contact with and (suspected) exposure to COVID-19; I44.4 Left anterior fascicular block; M19.90 Unspecified osteoarthritis, unspecified site; Z79.84 Long term (current) use of oral hypoglycemic drugs; Z79.899 Other long term (current) drug therapy; Z79.01 Long term (current) use of anticoagulants; Z79.02 Long term (current) use of antithrombotics/antiplatelets; Z87.891 Personal history of nicotine dependence; Z85.07 Personal history of malignant neoplasm of pancreas; Z92.21 Personal history of antineoplastic chemotherapy; Z95.5 Presence of coronary angioplasty implant and graft; Z90.410 Acquired total absence of pancreas; Z80.3 Family history of malignant neoplasm of breast; Z80.8 Family history of malignant neoplasm of other organs or systems
CPT/HCPCS: 99291; 96366 ×3; 96365; 96375; 36415; 93005; 93017; 93306; 85379; 83880; 80061; 80053; 83690; 83735; 84484; 85025; 85610; 85730 ×2; 87635; 71046; 78452; G0378 ×2; A9500; S0138; J1644 ×2; J2785

== ENCOUNTER → 2021-05-08 | Outpatient (CLI) | payer MEDICARE | END | disposition home or self-care (01) | LOC: LABWHC1 14:04 | PROVIDERS: ATTEND Internal Medicine Gastroenterology | DX: R19.7 Diarrhea, unspecified (principal); R68.81 Early satiety; R63.4 Abnormal weight loss; Z87.891 Personal history of nicotine dependence | CPT/HCPCS: 83630; 87045; 87046 ==

== ENCOUNTER 2021-08-14 16:25 | Emergency (ER) | payer MEDICARE ==
[2021-08-14 16:31] VITALS: TEMP 98.2
--- NOTE | 2021-08-14 16:39 | ED ---
Trauma HPI - General Chief Complaint: Trauma Stated Complaint: Fall-Arm/Facial injury Time Seen by Provider: 08/14/21 16:34 Source: patient Mode of arrival: wheelchair Limitations: no limitations - History of Present Illness Initial Comments: Liban is a 81-year-old male who presents the ER today via private vehicle for evaluation after a fall. Patient reports he had a trip and fall down a flight of carpeted stairs at home. He struck his glasses on his forehead resulting in a laceration he also cut his right elbow. He has had full range of motion of the arm he has been ambulatory since that time. - Related Data Home Medications Medication Instructions Recorded Confirmed Dutasteride 0.5 mg PO DAILY 04/03/19 03/05/21 Metoprolol Succinate [Toprol XL] 12.5 mg PO DAILY 04/03/19 03/05/21 metFORMIN HCL [Glucophage] 500 mg PO BID 04/03/19 03/05/21 Acetaminophen [Tylenol Extra 500 mg PO DAILY PRN 09/28/20 03/05/21 Strength] Apixaban [Eliquis] 5 mg PO BID 09/28/20 03/05/21 Donepezil HCl [Aricept] 5 mg PO HS 09/28/20 03/05/21 Losartan Potassium 100 mg PO DAILY 09/28/20 03/05/21 amLODIPine [Norvasc] 5 mg PO DAILY 09/28/20 03/05/21 hydrOXYzine HCL [Atarax] 25 - 50 mg PO HS PRN 09/28/20 03/05/21 Cyanocobalamin [Vitamin B-12 1,000 mcg SQ Q28D 03/05/21 03/05/21 Injection] Aspirin EC [Ecotrin Low Dose] 81 mg PO DAILY 08/14/21 08/14/21 Dicyclomine [Bentyl] 10 mg PO TID-W/MEALS 08/14/21 08/14/21 Allergies Allergy/AdvReac Type Severity Reaction Status Date / Time No Known Allergies Allergy Verified 08/14/21 18:15 Review of Systems ROS Statement: Those systems with pertinent positive or pertinent negative responses have been documented in the HPI. ROS Other: All systems not noted in ROS Statement are negative. Past Medical History Past Medical History: Atrial Fibrillation, Cancer, Chest Pain / Angina, Hyperlipidemia, Hypertension, Myocardial Infarction (MD) Additional Past Medical History / Comment(s): pancreatic cancer Last Myocardial Infarction Date:: 2000 History of Any Multi-Drug Resistant Organisms: None Reported Past Surgical History: Back Surgery, Heart Catheterization, Heart Catheterization With Stent, Hernia Repair, Orthopedic Surgery Additional Past Surgical History / Comment(s): pancrearic resection, right hip, states they have had 6 cardiac stents Past Anesthesia/Blood Transfusion Reactions: No Reported Reaction Date of Last Stent Placement:: 09/14 Past Psychological History: No Psychological Hx Reported Smoking Status: Former smoker Past Alcohol Use History: Occasional Past Drug Use History: None Reported - Past Family History Father Family Medical History: Cancer Additional Family Medical History / Comment(s): Skin cancer Mother Family Medical History: Cancer Additional Family Medical History / Comment(s): Breast cancer family Family Medical History: No Reported History General Exam - General Exam Comments Initial Comments: Physical Exam GENERAL: Patient is well-developed and well-nourished Patient is nontoxic and well-hydrated and is in no distress. HENT: Superficial laceration above lateral edge of right eyebrow EYES: PERRL, EOMI PULMONARY: Unlabored respirations CARDIOVASCULAR: RRR Warm and well perfused extremities ABDOMEN: Non-distended Well healed surgical incision SKIN: Laceration to right elbow : Deferred NEUROLOGIC: Alert and oriented Normal speech Normal gait MUSCULOSKELETAL: Moving all extremities with no apparent injury PSYCHIATRIC: No SI/HI Limitations: no limitations Course Vital Signs 08/14/21 08/14/21 08/14/21 16:27 16:45 17:00 Temperature 98.2 F 98.2 F 98.2 F Pulse Rate 62 64 Pulse Rate [ 68 Pulse Oximetery ] Respiratory 18 18 16 Rate Blood Pressure 170/77 140/75 Blood Pressure 168/72 [Left Arm Sitting] O2 Sat by Pulse 96 95 98 Oximetry Medical Decision Making - Medical Decision Making Level II trauma activation Patient care was discussed with surgeon Dr. Mcqueen who agrees with plan Computed tomography scan with chronic changes in the cervical spine CT findings were discussed with Dr. Li agrees these sound chronic, patient is pain-free without deficits does not require further workup at this time Labs are baseline for patient Laceration of forehead was repaired with glue, right elbow was repaired with 2 interrupted sutures of 4-0 nylon patient tolerated this well Return parameters were discussed and the patient was discharged home in stable condition - Lab Data Result diagrams: 08/14/21 16:57 08/14/21 16:57 Lab Results 08/14/21 08/14/21 08/14/21 Range/Units 16:57 16:57 16:57 WBC 9.1 (3.8-10.6) k/uL RBC 4.45 (4.30-5.90) m/uL Hgb 15.7 (13.0-17.5) gm/dL Hct 46.1 (39.0-53.0) % MCV 103.7 H (80.0-100.0) fL MCH 35.3 H (25.0-35.0) pg MCHC 34.0 (31.0-37.0) g/dL RDW 13.0 (11.5-15.5) % Plt Count 272 (150-450) k/uL MPV 7.4 Neutrophils % 46 % Lymphocytes % 39 % Monocytes % 9 % Eosinophils % 2 % Basophils % 1 % Neutrophils # 4.2 (1.3-7.7) k/uL Lymphocytes # 3.5 (1.0-4.8) k/uL Monocytes # 0.8 (0-1.0) k/uL Eosinophils # 0.2 (0-0.7) k/uL Basophils # 0.1 (0-0.2) k/uL Macrocytosis Slight PT 10.8 (9.0-12.0) sec INR 1.0 (<1.2) APTT 26.2 (22.0-30.0) sec Sodium 137 (137-145) mmol/L Potassium 3.9 (3.5-5.1) mmol/L Chloride 104 (98-107) mmol/L Carbon Dioxide 23 (22-30) mmol/L Anion Gap 10 mmol/L BUN 25 H (9-20) mg/dL Creatinine 1.08 (0.66-1.25) mg/dL Est GFR (CKD-EPI)AfAm 75 (>60 ml/min/1.73 sqM) Est GFR (CKD-EPI)NonAf 65 (>60 ml/min/1.73 sqM) Glucose 119 H (74-99) mg/dL Calcium 9.3 (8.4-10.2) mg/dL Total Bilirubin 1.0 (0.2-1.3) mg/dL AST 41 (17-59) U/L ALT 19 (4-49) U/L Alkaline Phosphatase 100 (38-126) U/L Troponin I (0.000-0.034) ng/mL Total Protein 7.4 (6.3-8.2) g/dL Albumin 4.2 (3.5-5.0) g/dL Serum Alcohol <10 mg/dL 08/14/21 Range/Units 16:57 WBC (3.8-10.6) k/uL RBC (4.30-5.90) m/uL Hgb (13.0-17.5) gm/dL Hct (39.0-53.0) % MCV (80.0-100.0) fL MCH (25.0-35.0) pg MCHC (31.0-37.0) g/dL RDW (11.5-15.5) % Plt Count (150-450) k/uL MPV Neutrophils % % Lymphocytes % % Monocytes % % Eosinophils % % Basophils % % Neutrophils # (1.3-7.7) k/uL Lymphocytes # (1.0-4.8) k/uL Monocytes # (0-1.0) k/uL Eosinophils # (0-0.7) k/uL Basophils # (0-0.2) k/uL Macrocytosis PT (9.0-12.0) sec INR (<1.2) APTT (22.0-30.0) sec Sodium (137-145) mmol/L Potassium (3.5-5.1) mmol/L Chloride (98-107) mmol/L Carbon Dioxide (22-30) mmol/L Anion Gap mmol/L BUN (9-20) mg/dL Creatinine (0.66-1.25) mg/dL Est GFR (CKD-EPI)AfAm (>60 ml/min/1.73 sqM) Est GFR (CKD-EPI)NonAf (>60 ml/min/1.73 sqM) Glucose (74-99) mg/dL Calcium (8.4-10.2) mg/dL Total Bilirubin (0.2-1.3) mg/dL AST (17-59) U/L ALT (4-49) U/L Alkaline Phosphatase (38-126) U/L Troponin I <0.012 (0.000-0.034) ng/mL Total Protein (6.3-8.2) g/dL Albumin (3.5-5.0) g/dL Serum Alcohol mg/dL Disposition Clinical Impression: Facial laceration, Laceration of right elbow, Fall down stairs Disposition: HOME SELF-CARE Condition: Stable Additional Instructions: Return in one week for suture removal Is patient prescribed a controlled substance at d/c from ED?: No Referrals: Grabiel Sullivan MD [Primary Care Provider] - 1-2 days
[2021-08-14 17:07] LABS: Basophils # (A) 0.1 k/uL (0-0.2); Basophils % (A) 1 %; Eosinophils # (A) 0.2 k/uL (0-0.7); Eosinophils % (A) 2 %; HCT 46.1 % (39.0-53.0); HGB 15.7 gm/dL (13.0-17.5); Lymphocytes # (A) 3.5 k/uL (1.0-4.8); Lymphocytes % (A) 39 %; MCH 35.3 pg (25.0-35.0); MCV 103.7 fL (80.0-100.0); Macrocytosis Slight; Mean Platelet Volume 7.4; Monocytes # (A) 0.8 k/uL (0-1.0); Monocytes % (A) 9 %; Neutrophils # (A) 4.2 k/uL (1.3-7.7); Neutrophils % (A) 46 %; Platelet Count 272 k/uL (150-450); RBC 4.45 m/uL (4.30-5.90); WBC 9.1 k/uL (3.8-10.6)
--- NOTE | 2021-08-14 17:10 | XR ---
EXAMINATION TYPE: XR chest 1V portable DATE OF EXAM: 08/14/2021 COMPARISON: 03/05/2021 HISTORY: High blood pressure. Fall. Injury. TECHNIQUE: Single view FINDINGS: Heart is normal. Lungs are clear of consolidation. There are no hilar masses. Bony thorax i s intact. IMPRESSION: No active cardiopulmonary disease. Normal heart. No change.
[2021-08-14 17:11] VITALS: BP 140/75; PULSE 64; RESP 16
[2021-08-14 17:18] LABS: ALT 19 U/L (4-49); AST 41 U/L (17-59); African American GFR (CKD) 75 (>60 ml/min/1.73 sqM); Albumin 4.2 g/dL (3.5-5.0); Alcohol <10 mg/dL; Alkaline Phosphatase 100 U/L (38-126); Anion Gap 10 mmol/L; Blood Urea Nitrogen 25 mg/dL (9-20); Calcium 9.3 mg/dL (8.4-10.2); Carbon Dioxide 23 mmol/L (22-30); Chloride 104 mmol/L (98-107); Glucose 119 mg/dL (74-99); Non-African American GFR(CKD) 65 (>60 ml/min/1.73 sqM); Potassium 3.9 mmol/L (3.5-5.1); Sodium 137 mmol/L (137-145); Total Protein 7.4 g/dL (6.3-8.2)
[2021-08-14 17:38] LABS: Partial Thromboplastin Time 26.2 sec (22.0-30.0); Prothrombin Time 10.8 sec (9.0-12.0)
--- NOTE | 2021-08-14 17:48 | CT ---
EXAMINATION TYPE: CT brain cspine wo con DATE OF EXAM: 08/14/2021 COMPARISON: 09/28/2020 HISTORY: Fall down 10 steps. Injury right supraorbital injury. CT DLP: 1533.9 mGycm Automated exposure control for dose reduction was used. There is cerebral cortical atrophy. There is no mass effect or midline shift. There is no sign of int racranial hemorrhage. There is some hypodensity in the white matter both frontal lobes. The calvarium is intact. There is mucosal thickening right maxillary sinus and right-sided ethmoid sinus. Skull ba se is intact. There is normal aeration of the mastoid sinuses. The cervical vertebra have fairly normal alignment. There is some degenerative disc space narrowing a t C2-3 and C5-6 and C6-7 with spurring of the endplates. There are some cystic changes in the base of the odontoid process. There is anterior subluxation of the odontoid in relation to the sphenoid bone of 1.3 cm. There is some thickening of the transverse ligament. There is some narrowing of the delisa en magnum as a result. The spinal canal measures 11 mm at the C1 level and not changed compared to ol d exam. IMPRESSION: Mild atrophy. Mild chronic small vessel ischemia. No acute intracranial abnormality. No change compar ed to old exam. 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 There is anterior s ubluxation of the C1 vertebra and the odontoid in relation to the sphenoid bone and consistent with l igamentous instability. This is however stable compared to old exam. No acute fracture seen.
--- NOTE | 2021-08-14 17:54 | XR ---
EXAMINATION TYPE: XR elbow complete RT DATE OF EXAM: 08/14/2021 COMPARISON: NONE HISTORY: Injury. Pain TECHNIQUE: 3 views FINDINGS: There is some spurring on the olecranon process of the ulna. I see no fracture nor dislocat ion. There is no sign of a joint effusion. Radial head is intact. IMPRESSION: No acute abnormality of the right elbow.
[2021-08-14] MEDS ORDERED: TOPICAL SKIN ADHESIVE 1 EACH AMP TOPICAL ONE (18:16)
== END 2021-08-14 19:00 | disposition home or self-care (01) ==
LOC: EC 16:25
DX: S51.011A Laceration without foreign body of right elbow, initial encounter (principal); S01.81XA Laceration without foreign body of other part of head, initial encounter; I48.91 Unspecified atrial fibrillation; E78.5 Hyperlipidemia, unspecified; I10 Essential (primary) hypertension; I25.2 Old myocardial infarction; Z79.84 Long term (current) use of oral hypoglycemic drugs; Z79.01 Long term (current) use of anticoagulants; Z79.82 Long term (current) use of aspirin; Z85.07 Personal history of malignant neoplasm of pancreas; Z87.891 Personal history of nicotine dependence; W10.8XXA Fall (on) (from) other stairs and steps, initial encounter
CPT/HCPCS: 99284; 12001; 12011; 36415; 93005; 80053; 84484; 85025; 85610; 85730; 73080; 71045; 72125; 70450; G0480; 80320

== ENCOUNTER → 2022-02-16 | Outpatient (CLI) | payer MEDICARE ==
--- NOTE | 2022-02-16 13:11 | CT ---
EXAMINATION TYPE: CT ChestAbdPelvis w con CT DLP: 620.30 mGycm, Automated exposure control for dose reduction was used. DATE OF EXAM: 02/16/2022 12:40 PM COMPARISON: CT abdomen and pelvis 02/24/2021, CT chest abdomen pelvis 02/24/2019. CLINICAL INDICATION:Male, 81 years old with history of C25.2 Pancreatic ca; Technique: Multiple axial images of the chest, abdomen, and pelvis were obtained following the intrav enous administration of 70 mL Isovue-300. Oral contrast was administered. Two-dimensional coronal and sagittal reconstructions were obtained. Findings: CHEST: LUNGS/ PLEURA: No pneumothorax, pleural effusion, or focal consolidation. Calcified granuloma within the right apex. Stable 5 mm nodule along the left major fissure and is favored to represent an intraf issural lymph node. Right lower lobe 5 mm pulmonary nodule is stable (series 5, image 44). Right lowe r lobe peripheral 8 mm nodule is stable (series 5, image 36). No new or enlarging pulmonary nodules. AIRWAY: Patent and unremarkable.. HEART: Size within normal limits. No pericardial effusion. Coronary artery calcifications and/or sten ts. MEDIASTINUM: Stable prevascular space mass measuring 2.1 x 1.5 cm. No new suspicious mediastinal or h ilar adenopathy. VASCULATURE: No aortic aneurysm. Atherosclerotic calcification of the aorta. MUSCULOSKELETAL: No acute osseous abnormalities. No aggressive osseous lesions. SOFT TISSUES/LYMPH NODES: No axillary adenopathy. LOWER NECK: Subcentimeter bilateral thyroid nodules .. ABDOMEN: ABDOMEN LIVER: Redemonstration of multiple unchanged thin-walled hepatic cysts with largest in the right hepa tic lobe measuring up to 11 cm. GALLBLADDER AND BILE DUCTS: The gallbladder is surgically absent. Stable extrahepatic biliary duct di latation. PANCREAS: Postsurgical changes of the pancreatic tail from resection. No definitive pancreatic lesion to suggest local recurrence. SPLEEN: Surgically absent. ADRENAL GLANDS: Unremarkable. KIDNEYS AND URETERS: No evidence of hydronephrosis or renal calculus. The kidneys enhance symmetrical ly. PELVIS BLADDER: Incompletely distended but grossly unremarkable. REPRODUCTIVE: Coarse calcifications of the prostate gland are identified. Prostate gland is enlarged. ABDOMEN & PELVIS STOMACH AND BOWEL: Stomach and duodenum are unremarkable. Colonic diverticulosis without evidence for acute diverticulitis. No evidence of bowel obstruction. PERITONEUM: No evidence of pneumoperitoneum or free fluid. No peritoneal nodularity. VASCULATURE: Moderate atherosclerotic calcifications are present throughout the abdominal aorta and i ts branches. Ectasia of the infrarenal abdominal aorta measuring up to 2.8 cm. MUSCULOSKELETAL: No acute osseous abnormalities. No aggressive osseous lesions. Post surgical changes in right total hip arthroplasty. Additional postsurgical changes from lumbar laminectomies. Degenera tive changes most pronounced at L5-S1 with disc space narrowing, endplate sclerosis, and osteophytosi s. LYMPH NODES: No gross evidence for lymphadenopathy. SOFT TISSUE/ABDOMINAL WALL: Postsurgical changes of the anterior lateral wall. No fluid collection. S mall suggested fat filled ventral hernias. Additional surgical clips demonstrated within the left ant erior abdominal wall. IMPRESSION: 1. No definitive evidence to suggest recurrence or new metastatic disease. 2. Colonic diverticulosis without evidence for acute diverticulitis. 3. Stable hepatic cysts. 4. Stable pulmonary nodules. No new or enlarging nodules. 5. Stable nonspecific mediastinal mass dating back to 2019.
== END | disposition home or self-care (01) ==
LOC: RADCTMAIN 10:32
PROVIDERS: ATTEND Internal Medicine Hematology & Oncology
DX: C25.2 Malignant neoplasm of tail of pancreas (principal); K57.30 Diverticulosis of large intestine without perforation or abscess without bleeding; K76.89 Other specified diseases of liver; R91.8 Other nonspecific abnormal finding of lung field
CPT/HCPCS: 82565; 84520; 71260; 74177; 36415; Q9967

== ENCOUNTER → 2022-03-25 | Outpatient (CLI) | payer MEDICARE ==
--- NOTE | 2022-03-26 11:35 | MR ---
EXAMINATION TYPE: MR brain wo con DATE OF EXAM: 03/25/2022 COMPARISON: CT brain August 14, 2021 HISTORY: UNSTEADY WHEN WALKING, ABNORMALITIES OF GAIT AND MOBILITY, MEMORY TECHNIQUE: Multiplanar, multisequence imaging of the brain and brainstem is performed without IV cont rast. FINDINGS: Diffusion weighted images demonstrate no evidence of a recent infarct or other diffusion abnormality. There is mild to moderate ventricular and sulcal prominence redemonstrated. Scattered focal and confl uent areas of T2 hyperintensity seen throughout the white matter most prominent at periventricular le vels. Lesions nonspecific in appearance and distribution.. Midline structures redemonstrate bony loss at superior C2 level. The craniocervical junction appears within normal limits. Normal vascular flow voids are present. Moderate mucosal thickening involving ethmoid sinuses bilaterally. Nasal septum slightly deviated to left of midline. Globes are intact yvrose aterally. IMPRESSION: 1. [id number] diffuse cerebral atrophy and moderate to advanced chronic small vessel ischemic c hanges. 2. Mild to moderate chronic ethmoid sinus disease. 3. Redemonstration of old trauma at level of skull base with anterior positioning of C2 relative to t he posterior inferior clivus. Findings correlate with recent CT. Correlate clinically.
== END | disposition home or self-care (01) ==
LOC: RADMRIMAIN 07:03
PROVIDERS: ATTEND Family Medicine
DX: G31.9 Degenerative disease of nervous system, unspecified (principal); I67.82 Cerebral ischemia; J32.2 Chronic ethmoidal sinusitis
CPT/HCPCS: 70551

== ENCOUNTER → 2022-05-19 | Outpatient (CLI) | payer MEDICARE | END | disposition home or self-care (01) | LOC: LABWHC1 13:44 | PROVIDERS: ATTEND Nurse Practitioner Family | DX: R41.3 Other amnesia (principal) | CPT/HCPCS: 36415; 82607; 82746; 84443; 86780 ==

== ENCOUNTER 2023-04-10 10:57 | Emergency (ER) | payer MEDICARE ==
[2023-04-10 11:23] VITALS: PULSE 95; RESP 18; TEMP 100.4
--- NOTE | 2023-04-10 11:28 | ED ---
Extremity Problem HPI - General Chief complaint: Extremity Problem,Nontraumatic Stated complaint: R Knee Injury Time Seen by Provider: 04/10/23 11:14 Source: patient, family (), RN notes reviewed Mode of arrival: ambulatory Limitations: no limitations - History of Present Illness Initial comments: Patient an 83-year-old male presented ER with a chief complaint of right leg pain. is providing most of the HPI due to the patient having dementia. noted for the past couple of days that his right leg seems to be swollen and slightly discolored. This morning as the patient was given about the states he complained of pain behind his right knee. The states that his right lower extremity feels warm to touch, swollen, red in color compared to the left. There has been no recent travel history and the patient has no blood clot history. Patient also states that he had a fall recently. Patient denies any fevers, chills, night sweats, chest pain/palpitations, shortness of breath, abdominal pain, constipation/diarrhea, urinary symptoms. - Related Data Home Medications Medication Instructions Recorded Confirmed Dutasteride 0.5 mg PO DAILY 04/03/19 08/14/21 Metoprolol Succinate [Toprol XL] 12.5 mg PO DAILY 04/03/19 08/14/21 metFORMIN HCL [Glucophage] 500 mg PO BID 04/03/19 08/14/21 Acetaminophen [Tylenol Extra 500 mg PO DAILY PRN 09/28/20 08/14/21 Strength] Apixaban [Eliquis] 5 mg PO BID 09/28/20 08/14/21 Donepezil HCl [Aricept] 5 mg PO HS 09/28/20 08/14/21 Losartan Potassium 100 mg PO DAILY 09/28/20 08/14/21 amLODIPine [Norvasc] 5 mg PO DAILY 09/28/20 08/14/21 hydrOXYzine HCL [Atarax] 25 - 50 mg PO HS PRN 09/28/20 08/14/21 Cyanocobalamin [Vitamin B-12 1,000 mcg SQ Q28D 03/05/21 08/14/21 Injection] Aspirin EC [Ecotrin Low Dose] 81 mg PO DAILY 08/14/21 08/14/21 Dicyclomine [Bentyl] 10 mg PO TID-W/MEALS 08/14/21 08/14/21 Allergies Allergy/AdvReac Type Severity Reaction Status Date / Time No Known Allergies Allergy Verified 04/10/23 11:10 Review of Systems ROS Statement: Those systems with pertinent positive or pertinent negative responses have been documented in the HPI. ROS Other: All systems not noted in ROS Statement are negative. Past Medical History Past Medical History: Atrial Fibrillation, Cancer, Chest Pain / Angina, Hyperlipidemia, Hypertension, Myocardial Infarction ([place]) Additional Past Medical History / Comment(s): pancreatic cancer Last Myocardial Infarction Date:: 2000 History of Any Multi-Drug Resistant Organisms: None Reported Past Surgical History: Back Surgery, Heart Catheterization, Heart Catheterization With Stent, Hernia Repair, Orthopedic Surgery Additional Past Surgical History / Comment(s): pancrearic resection, right hip, states they have had 6 cardiac stents Past Anesthesia/Blood Transfusion Reactions: No Reported Reaction Date of Last Stent Placement:: 09/14 Past Psychological History: No Psychological Hx Reported Smoking Status: Former smoker Past Alcohol Use History: Occasional Past Drug Use History: None Reported - Past Family History Father Family Medical History: Cancer Additional Family Medical History / Comment(s): Skin cancer Mother Family Medical History: Cancer Additional Family Medical History / Comment(s): Breast cancer family Family Medical History: No Reported History General Exam Limitations: no limitations General appearance: alert, in no apparent distress Head exam: Present: atraumatic, normocephalic, normal inspection Eye exam: Present: normal appearance, PERRL, EOMI. Absent: scleral icterus, conjunctival injection, periorbital swelling Respiratory exam: Present: normal lung sounds bilaterally. Absent: respiratory distress, wheezes, rales, rhonchi, stridor Cardiovascular Exam: Present: regular rate, normal rhythm, normal heart sounds. Absent: systolic murmur, diastolic murmur, rubs, gallop, clicks GI/Abdominal exam: Present: soft, normal bowel sounds. Absent: distended, tenderness, guarding, rebound, rigid Extremities exam: Present: other (Right lower extremity: Brawny red in coloration, warm to touch, larger than left. There is calf tenderness closer to the knee. 2+ right dorsalis pedis pulse) Psychiatric exam: Present: normal affect, normal mood Course Vital Signs 04/10/23 11:05 Temperature 100.4 F H Pulse Rate 95 Respiratory 18 Rate Blood Pressure 178/118 O2 Sat by Pulse 98 Oximetry Medical Decision Making - Medical Decision Making Was pt. sent in by a medical professional or institution (, PA, COMMUNITY FACILITATOR, urgent care, hospital, or long term...) When possible be specific @ -No Did you speak to anyone other than the patient for history (EMS, parent, family, police, friend...)? What history was obtained from this source @ - Did you review nursing and triage notes (agree or disagree)? Why? @ -I reviewed and agree with nursing and triage notes Were old charts reviewed (outside hosp., previous admission, EMS record, old EKG, old radiological studies, urgent care reports/EKG's, long term records)? Report findings @ -No old charts were reviewed Differential Diagnosis (chest pain, altered mental status, abdominal pain women, abdominal pain men, vaginal bleeding, weakness, fever, dyspnea, syncope, headache, dizziness, GI bleed, back pain, seizure, CVA, palpatations, mental health, musculoskeletal)? @ -Differential Fever: Pneumonia, viral URI, endocarditis, myocarditis, pericarditis, otitis, sinusitis, peritonsillar Abscess, retropharyngeal Abscess, epiglottitis, peritonitis, appendicitis, Katarzyna cystitis, diverticulitis, hepatitis, colitis, UTI, PID, TOA, pyelonephritis, prostatitis, epididymitis, m eningitis, encephalitis, pulmonary embolism, CVA, thyroid storm, pancreatitis, adrenal crisis, cavernous sinus thrombosis, this is not meant to be an all- inclusive list. able EKG interpreted by me (3pts min.). @ -None X-rays interpreted by me (1pt min.). @ -CT chest showed no acute cardiopulmonary processes. CT interpreted by me (1pt min.). @ -None done U/S interpreted by me (1pt. min.). @ -US venous Doppler of the right lower extremity showed a DVT starting in the right popliteal vein extending into the posterior tibial veins. What testing was considered but not performed or refused? (CT, X-rays, U/S, labs)? Why? @ -None What meds were considered but not given or refused? Why? @ -Starting patient on blood thinner was considered. He is already taking Eliquis 5mg BID for atrial fibrillation so it was not given. Did you discuss the management of the patient with other professionals (professionals i.e. , PA, COMMUNITY FACILITATOR, lab, RT, psych nurse, sr. social media & mobile manager, refrigerating engineer head, teacher, logistics officer, piano case maker)? Give summary @ -No Was smoking cessation discussed for >3mins.? @ -No Was critical care preformed (if so, how long)? @ -No Were there social determinants of health that impacted care today? How? (Homelessness, low income, unemployed, alcoholism, drug addiction, transportation, low edu. Level, literacy, decrease access to med. care, fci, rehab)? @ -No Was there de-escalation of care discussed even if they declined (Discuss DNR or withdrawal of care, Hospice)? DNR status @ -No What co-morbidities impacted this encounter? (DM, HTN, Smoking, COPD, CAD, Cancer, CVA, ARF, Chemo, Hep., AIDS, mental health diagnosis, sleep apnea, morbid obesity)? @ -Atrial fibrillation, hypertension, dementia Was patient admitted / discharged? Hospital course, mention meds given and route, prescriptions, significant lab abnormalities, going to OR and other pertinent info. @ -Discharge. On examination the right lower extremity was warm, erythematous, and edematous. Patient had pain to palpation of calf. Venous Doppler of the right lower extremity showed DVT starting the right popliteal veins extending to posterior tibial veins. Patient also had a low-grade fever of 100.4. Labs were obtained and were WNL. Chest x-ray showed no acute cardiopulmonary processes. COVID-19 negative. Upon speaking with his , patient is taking a risk for atrial fibrillation. states that she is unsure if he takes his nighttime dose of Eliquis because she is asleep by the time he comes to bed. I discussed with the patient and his about the importance of taking his Eliquis dose tonight. I advised the patient to follow-up with PCP, Dr. Sullivan, in office tomorrow for outpatient management of DVT. I discussed the red flag symptoms for which they should return to the ER. Patient and his expressed understanding and agreement with the care plan. Patient discharged home in stable condition with follow-up to PCP. Undiagnosed new problem with uncertain prognosis? @ -No Drug Therapy requiring intensive monitoring for toxicity (Heparin, Nitro, Insulin, Cardizem)? @ -No Were any procedures done? @ -No Diagnosis/symptom? @ -Right lower extremity DVT Acute, or Chronic, or Acute on Chronic? @ -Acute Uncomplicated (without systemic symptoms) or Complicated (systemic symptoms)? @ -Uncomplicated Side effects of treatment? @ -No Exacerbation, Progression, or Severe Exacerbation? @ -No Poses a threat to life or bodily function? How? (Chest pain, [place], [place], pneumonia, PE, COPD, DKA, ARF, appy, cholecystitis, CVA, Diverticulitis, Homicidal, Suicidal, threat to staff... and all critical care pts) @ -Yes, lower extremity DVT. - Lab Data Result diagrams: 04/10/23 12:38 04/10/23 12:38 Lab Results 04/10/23 04/10/23 04/10/23 Range/Units 12:38 12:38 12:38 WBC 10.6 (3.8-10.6) k/uL RBC 4.62 (4.30-5.90) m/uL Hgb 16.6 (13.0-17.5) gm/dL Hct 47.5 (39.0-53.0) % MCV 102.9 H (80.0-100.0) fL MCH 36.0 H (25.0-35.0) pg MCHC 35.0 (31.0-37.0) g/dL RDW 12.2 (11.5-15.5) % Plt Count 263 (150-450) k/uL MPV 8.0 Macrocytosis Slight Sodium 137 (137-145) mmol/L Potassium 4.4 (3.5-5.1) mmol/L Chloride 101 (98-107) mmol/L Carbon Dioxide 24 (22-30) mmol/L Anion Gap 12 mmol/L BUN 17 (9-20) mg/dL Creatinine 0.87 (0.66-1.25) mg/dL Est GFR (CKD-EPI)AfAm >90 (>60 ml/min/1.73 sqM) Est GFR (CKD-EPI)NonAf 81 (>60 ml/min/1.73 sqM) Glucose 129 H (74-99) mg/dL Plasma Lactic Acid Donnell (0.7-2.0) mmol/L Calcium 9.4 (8.4-10.2) mg/dL Total Bilirubin 1.4 H (0.2-1.3) mg/dL AST 27 (17-59) U/L ALT 18 (4-49) U/L Alkaline Phosphatase 73 (38-126) U/L Total Protein 7.5 (6.3-8.2) g/dL Albumin 4.0 (3.5-5.0) g/dL Urine Color Light Yellow Urine Appearance Clear (Clear) Urine pH 6.0 (5.0-8.0) Ur Specific [place] 1.015 (1.001-1.035) Urine Protein Negative (Negative) Urine Glucose (UA) Negative (Negative) Urine Ketones Negative (Negative) Urine Blood Small H (Negative) Urine Nitrite Negative (Negative) Urine Bilirubin Negative (Negative) Urine Urobilinogen <2.0 (<2.0) mg/dL Ur Leukocyte Esterase Negative (Negative) Urine RBC 3 (0-5) /hpf Urine WBC 1 (0-5) /hpf Urine Mucus Rare H (None) /hpf Coronavirus (PCR) (Not Detectd) 04/10/23 04/10/23 Range/Units 12:38 12:38 WBC (3.8-10.6) k/uL RBC (4.30-5.90) m/uL Hgb (13.0-17.5) gm/dL Hct (39.0-53.0) % MCV (80.0-100.0) fL MCH (25.0-35.0) pg MCHC (31.0-37.0) g/dL RDW (11.5-15.5) % Plt Count (150-450) k/uL MPV Macrocytosis Sodium (137-145) mmol/L Potassium (3.5-5.1) mmol/L Chloride (98-107) mmol/L Carbon Dioxide (22-30) mmol/L Anion Gap mmol/L BUN (9-20) mg/dL Creatinine (0.66-1.25) mg/dL Est GFR (CKD-EPI)AfAm (>60 ml/min/1.73 sqM) Est GFR (CKD-EPI)NonAf (>60 ml/min/1.73 sqM) Glucose (74-99) mg/dL Plasma Lactic Acid Donnell 1.2 (0.7-2.0) mmol/L Calcium (8.4-10.2) mg/dL Total Bilirubin (0.2-1.3) mg/dL AST (17-59) U/L ALT (4-49) U/L Alkaline Phosphatase (38-126) U/L Total Protein (6.3-8.2) g/dL Albumin (3.5-5.0) g/dL Urine Color Urine Appearance (Clear) Urine pH (5.0-8.0) Ur Specific [place] (1.001-1.035) Urine Protein (Negative) Urine Glucose (UA) (Negative) Urine Ketones (Negative) Urine Blood (Negative) Urine Nitrite (Negative) Urine Bilirubin (Negative) Urine Urobilinogen (<2.0) mg/dL Ur Leukocyte Esterase (Negative) Urine RBC (0-5) /hpf Urine WBC (0-5) /hpf Urine Mucus (None) /hpf Coronavirus (PCR) Not Detected (Not Detectd) - Radiology Data Radiology results: report reviewed, image reviewed Disposition Clinical Impression: Deep vein thrombosis (DVT) of lower extremity Disposition: HOME SELF-CARE Condition: Stable Instructions (If sedation given, give patient instructions): Deep Vein Thrombosis (ED) Additional Instructions: Please return to the Emergency Department if symptoms worsen or any other concerns. Please make sure to take Eliquis as prescribed today. Please follow-up outpatient with Dr. Sullivan within the next 24-48 hours. Is patient prescribed a controlled substance at d/c from ED?: No Referrals: Grabiel Sullivan MD [Primary Care Provider] - 1-2 days Time of Disposition: 14:25
--- NOTE | 2023-04-10 12:27 | US ---
EXAMINATION TYPE: US venous doppler duplex LE RT DATE OF EXAM: 04/10/2023 12:15 PM COMPARISON: NONE CLINICAL INDICATION: Male, 83 years old with history of pain; Right leg swelling SIDE PERFORMED: Right TECHNIQUE: The lower extremity deep venous system is examined utilizing real time linear array sonog constance with graded compression, doppler sonography and color-flow sonography. VESSELS IMAGED: Common Femoral Vein Deep Femoral Vein Greater Saphenous Vein * Femoral Vein Popliteal Vein Small Saphenous Vein * Proximal Calf Veins (* superficial vessels) Right Leg: Positive for DVT within right popliteal veins to proximal calf veins Grayscale, color doppler, spectral doppler imaging performed of the deep veins of the lower extremiti es. There is normal flow, compressibility, vascular waveforms. IMPRESSION: Positive deep vein thrombosis within the right popliteal vein extending into the posteri or tibial veins. Attempted to notify.CONCEPCION Mayer on 04/10/2023 12:[address] Leo Kerns. No answer on the telephone.
--- NOTE | 2023-04-10 13:16 | XR ---
EXAMINATION TYPE: XR chest 2V DATE OF EXAM: 04/10/2023 1:08 PM CLINICAL INDICATION:Male, 83 years old with history of fever; [facility] COMPARISON: Chest radiographs from 08/14/2021 TECHNIQUE: XR chest 2V Frontal and lateral views of the chest. FINDINGS: Lungs/Pleura: There is no evidence of pleural effusion, focal consolidation, or pneumothorax. Pulmonary vascularity: Unremarkable. Heart/mediastinum: Cardiomediastinal silhouette is unremarkable. Musculoskeletal: No acute osseous pathology. Other findings: None IMPRESSION: No acute cardiopulmonary disease/process.
[2023-04-10 13:26] LABS: HCT 47.5 % (39.0-53.0); HGB 16.6 gm/dL (13.0-17.5); MCV 102.9 fL (80.0-100.0); Macrocytosis Slight; Platelet Count 263 k/uL (150-450); RBC 4.62 m/uL (4.30-5.90); RDW 12.2 % (11.5-15.5); WBC 10.6 k/uL (3.8-10.6)
[2023-04-10 13:31] LABS: Appearance,Urine Clear (Clear); Bilirubin,Urine Negative (Negative); Blood,Urine Small (Negative); Color,Urine Light Yellow; Glucose,Urine (UA) Negative (Negative); Ketones,Urine Negative (Negative); Leukocyte Esterase,Urine Negative (Negative); Mucus,Urine Rare /hpf; Nitrite,Urine Negative (Negative); Protein,Urine Negative (Negative); RBC,Urine 3 /hpf (0-5); Specific Gravity,Urine 1.015 (1.001-1.035); Urobilinogen,Urine <2.0 mg/dL (<2.0); WBC,Urine 1 /hpf (0-5)
[2023-04-10 13:43] LABS: ALT 18 U/L (4-49); AST 27 U/L (17-59); African American GFR (CKD) >90 (>60 ml/min/1.73 sqM); Alkaline Phosphatase 73 U/L (38-126); Anion Gap 12 mmol/L; Blood Urea Nitrogen 17 mg/dL (9-20); Calcium 9.4 mg/dL (8.4-10.2); Carbon Dioxide 24 mmol/L (22-30); Chloride 101 mmol/L (98-107); Glucose 129 mg/dL (74-99); Non-African American GFR(CKD) 81 (>60 ml/min/1.73 sqM); Potassium 4.4 mmol/L (3.5-5.1); Sodium 137 mmol/L (137-145); Total Bilirubin 1.4 mg/dL (0.2-1.3); Total Protein 7.5 g/dL (6.3-8.2)
[2023-04-10 14:53] VITALS: BP 174/99
== END 2023-04-10 14:51 | disposition home or self-care (01) ==
LOC: EC 10:57
DX: I82.431 Acute embolism and thrombosis of right popliteal vein (principal); I48.91 Unspecified atrial fibrillation; I10 Essential (primary) hypertension; I25.2 Old myocardial infarction; Z87.891 Personal history of nicotine dependence; Z79.01 Long term (current) use of anticoagulants; Z79.899 Other long term (current) drug therapy; Z79.82 Long term (current) use of aspirin; Z20.822 Contact with and (suspected) exposure to COVID-19; Z95.5 Presence of coronary angioplasty implant and graft
CPT/HCPCS: 36415; 71046; 80053; 81001; 83605; 85027; 87635; 99284

== ENCOUNTER → 2024-01-09 | Outpatient (CLI) | payer MEDICARE ==
--- NOTE | 2024-02-05 09:41 | CT ---
Site ID synapse default Patient Liban Petersen ID [id number] Age/Gender: 83Y, M Order # N/A Procedure CT brain wo con Date 01/09/2024 12:06:00 PM EXAMINATION TYPE: CT brain wo con CT DLP: 1290 mGycm, Automated exposure control for dose reduction was used. DATE OF EXAM: 01/18/2024 1:40 PM COMPARISON: MRI brain 03/25/2022, CT brain C-spine 08/14/2021 CLINICAL INDICATION: Male, 83 year old with history of amnesia, TECHNIQUE: Brain: Multiple axial CT images of the brain were obtained without IV contrast. . Coronal and sagitta l reformats reviewed. FINDINGS: Brain: Extra-axial spaces: No abnormal extra-axial fluid collections. Ventricular system: Within normal limits Cerebral parenchyma: Age-appropriate cerebral volume loss. No acute intraparenchymal hemorrhage or ma ss effect. The fernandez-white junction is well differentiated. Scattered hypoattenuating areas are seen within the periventricular white matter. Cerebellum: Unremarkable. Mass effect: No evidence of midline shift. Intracranial vasculature: Atherosclerotic calcifications of the intracranial vessels. Soft tissues: Normal. Calvarium/osseous structures: No depressed skull fracture. Paranasal sinuses and mastoid air cells: The mastoid air cells are clear. Left external auditory jennifer l cerumen. Moderate mucosal thickening of the right maxillary sinus, right ethmoid sinus, and right f rontal sinus. Aplasia of the left frontal sinus. Remaining paranasal sinuses are clear. Nasal septal deviation to the left. Visualized orbits: Orbital contents are intact. IMPRESSION: 1. No acute intracranial process. 2. Nonspecific white matter changes, likely secondary to chronic small vessel ischemic disease. 3. Moderate paranasal sinus disease.
== END | disposition home or self-care (01) ==
LOC: RADCTMAIN 12:00
PROVIDERS: ATTEND Psychiatry & Neurology Neurology
DX: R41.3 Other amnesia (principal); R90.82 White matter disease, unspecified; I67.2 Cerebral atherosclerosis; I67.82 Cerebral ischemia
CPT/HCPCS: 70450; 70470

== ENCOUNTER → 2024-02-16 | Outpatient (CLI) | payer MEDICARE ==
--- NOTE | 2024-02-16 18:21 | MR ---
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 TECHNIQUE: Multi planar, multi sequence imaging was performed through the brain including: T1, T2, In version recovery, Diffusion weighted imaging, and gradient echo imaging. No gadolinium was given. FINDINGS: Atrophy changes predominantly of the frontal and temporal lobes compared to the remainder o f the brain subjectively. The fernandez-white junctions, ventricular system, basal cisterns appear unremar kable. Scattered foci of high T2 signal intensity are seen within the periventricular white matter. Midline structures show no abnormality. Diffusion-weighted imaging shows no evidence of restricted d iffusion. The susceptibility weighted images do not reveal any evidence for micro-hemorrhage. The bone marrow signal is within normal limits. Paranasal sinuses and mastoid air cells: No significant paranasal sinus disease. Visualized orbits: Orbital contents are intact. IMPRESSION: 1. No evidence of intracranial mass or acute/subacute infarct. 2. Atrophy changes of the frontal lobes slightly more prominent compared to the remainder of the brai n correlate frontotemporal lobe dementia. 3. Nonspecific white matter changes, likely secondary to small vessel ischemic disease. [facility], , 02/16/2024 6:19 PM
== END | disposition home or self-care (01) ==
LOC: RADMRIMAIN 16:28
PROVIDERS: ATTEND Family Medicine
DX: G91.2 (Idiopathic) normal pressure hydrocephalus
CPT/HCPCS: 70551